=== PATIENT | male | born 1955 | race Caucasian/White ===

== ENCOUNTER 2021-09-01 14:48 | Inpatient (IN) | payer OTHER ==
[~2021-09-01] VITALS: Ht 177.8 cm; Wt 104.3 kg
--- NOTE | 2021-09-01 15:20 | NUR ---
PT TAKEN TO CT VIA ECHO
--- NOTE | 2021-09-01 15:40 | NUR ---
PT BACK FROM CT VIA ECHO
--- NOTE | 2021-09-01 15:55 | NUR ---
PT PROVIDED WITH WARM BLANKET
[2021-09-01] MEDS ORDERED: ACETAMINOPHEN EXTRA STRENGTH 500 MG TAB PO ONE (16:20)
--- NOTE | 2021-09-01 16:59 | NUR ---
LAB AT BEDSIDE
--- NOTE | 2021-09-01 18:58 | NUR ---
PT SWABBED(SYD) FOR COVID, SPECIMEN WALKED TO LAB
--- NOTE | 2021-09-01 19:25 | NUR ---
REPORT GIVEN TO NARENDRA OVIEDO. TRANSFER OF CARE
--- NOTE | 2021-09-01 19:28 | NUR ---
RECEIVED REPORT FROM LINDA OVIEDO
[2021-09-01 19:30] LABS: ALBUMIN 3.4 g/dL (3.4-5.0); ANION GAP 11.2 (8-16); ASPARTATE AMINOTRANSFERASE 13 U/L (15-37); CARBON DIOXIDE 27.4 mmol/L (21-32); CHLORIDE 106 mmol/L (98-107); CREATININE 0.9 mg/dL (0.6-1.3); GFR ARICAN-AMERICAN 108 mL/min (>90); GLUCOSE 89 mg/dL (74-106); POTASSIUM 4.6 mmol/L (3.5-5.1); SODIUM SERUM 140 mmol/L (136-145); TOTAL BILIRUBIN 0.2 mg/dL (0.0-1.0); UREA NITROGEN, BLOOD 20 mg/dL (7-18)
[2021-09-01 19:33] LABS: BASOPHILS # (AUTO) 0.1 K/uL (0.00-0.22); BASOPHILS % (AUTO) 1.1 % (0.0-2.0); EOSINOPHILS # (AUTO) 0.2 K/uL (0-0.4); EOSINOPHILS % (AUTO) 1.8 % (0.0-4.0); HEMOGLOBIN 13.5 g/dL (12.0-18.0); LYMPHOCYTES % (AUTO) 23.6 % (20.5-51.1); MEAN CORPUSCULAR HEMOGLOBIN 31 pg (27-31); MEAN CORPUSCULAR HGB CONC 33 g/dL (33-37); MEAN CORPUSCULAR VOLUME 92.7 fL (80-94); MONOCYTES # (AUTO) 0.8 K/uL (0.8-1.0); MONOCYTES % (AUTO) 9.8 % (1.7-9.3); NEUTROPHILS # (AUTO) 5.5 K/uL (1.8-7.7); NEUTROPHILS % (AUTO) 63.7 % (42.2-75.2); PLATELET COUNT (AUTO) 215 K/uL (140-450); RED BLOOD CELL COUNT(AUTO) 4.43 MIL/uL (4.20-6.10); RED CELL DISTRIBUTION WIDTH 14.8 % (11.6-13.7); WHITE BLOOD COUNT (AUTO) 8.6 K/uL (4.8-10.8)
--- NOTE | 2021-09-01 19:40 | NUR ---
ALEJANDRA APPLIED TO RIGHT MID ARM. FOOD PROVIDED TO PATIENT. PT IS EATING AND TOLERATED ON OWN.
[2021-09-01 19:46] LABS: APPEARANCE,URINE CLEAR (CLEAR); BILIRUBIN,URINE NEGATIVE (NEGATIVE); BLOOD, URINE NEGATIVE (NEGATIVE); COLOR,URINE YELLOW (YELLOW); LEUKOCYTE ESTERASE ,URINE NEGATIVE (NEGATIVE); NITRITE, URINE NEGATIVE (NEGATIVE); PH,URINE 5.5 (5.0-9.0); UGLUCOSE NEGATIVE (NEGATIVE)
[2021-09-01] MEDS ORDERED: fentaNYL citrate 0.05 MG/ML VIAL IM ONE (20:10)
[2021-09-01] MEDS ORDERED: IBUPROFEN 600 MG TAB PO PRN (21:15)
[2021-09-01] MEDS ORDERED: HYDROcodone/APAP 5/325 MG 1 TAB TAB PO PRN (21:15)
--- NOTE | 2021-09-01 22:14 | NUR ---
PT IS ADMITTED TO M/S. AWAITING BED ASSIG. PT IS RESTING COMFORTABLY. RESP EVEN AND UNLABORED
--- NOTE | 2021-09-01 22:45 | NUR ---
Patient will be admitted to care of MANDO. Admited to MED SURG. Will go to [id number]. Belongings list completed. Report to CATHY OVIEDO.
--- NOTE | 2021-09-01 23:00 | NUR ---
RECEIVE PATIENT VIA GURNEY FROM ED. PATIENT PLEASANT AND ABLE TO COMMUNICATE NEEDS. RIGHT SIDE WEAKNESS FROM STROKE. PATIENT HAS NO IV ASSESS AND MD IS AWARE. PATIENT ON ROOM AIR WITHOUT INCIDENT. PATIENT DENIES PAIN AT THIS TIME. ABLE TO ASSIST TO ADJUST IN BED FOR COMFORT WITH VERBAL COMMANDS FROM NURSES X 2. PATIENT CAN USE A URINAL AND WILL INFORM WHEN HER HE HAS HAD A BOWEL MOVEMENT. PICTURES TAKEN FOR WOUND CONSULT REFERRAL. NOTED TO RIGHT EYE IS SLIGHTLY SWOLLEN AND DARKER PIGMENTATION. DENIES PAIN/DISCOMFORT. SIDE RAILS UP X 3 FOR ADJUSTMENT AND SAFETY. ID BAND ON WRIST FALL RISK SIGN POSTED. [email or web address]
[2021-09-01 23:21] VITALS: BP 111/72
[2021-09-01 23:34] VITALS: BP 111/72
--- NOTE | 2021-09-02 01:00 | NUR ---
PATIENT IN BED ASLEEP WITHOUT INCIDENT. BED AT THE LOWEST LEVEL HEAD OF BE ELEVATED FOR COMFORT. NO S/SX OF PAIN OR DISCOMFORT. CHEST IS RISING AND FALLING EVENLY. SIDE RAILS UP X 3 FOR SAFETY AND SELF ADJUSTMENTS. PATIENT HAD TWO SOFT BOWEL MOVEMENTS NOTED. [email or web address]
--- NOTE | 2021-09-02 02:30 | NUR ---
Patient's Plan of Care was discussed and reviewed with MACHINE TOOL OPERATOR: JAKI ROSARIO
--- NOTE | 2021-09-02 03:00 | NUR ---
PATIENT IN BED ASLEEP WITHOUT INCIDENT. SITTER AT BED SIDE FOR SAFETY. BED AT THE LOWEST LEVEL HEAD OF BE ELEVATED FOR COMFORT. NO S/SX OF PAIN OR DISCOMFORT. [email or web address]
[2021-09-02 04:00] VITALS: BP 99/68
--- NOTE | 2021-09-02 07:09 | NUR ---
PATIENT HAS BEEN SCREENED AND CATEGORIZED LOW NUTRITION RISK. PATIENT WILL BE SEEN WITHIN 7 DAYS OF ADMISSION. 09/09/21 KENTON PIERCE MS, RDN
--- NOTE | 2021-09-02 07:19 | NUR ---
PATIENT WAS ENDORSED TO KARRIE OVIEDO. PATIENT IS IN BED A STABLE FOR CONTINUITY OF CARE [email or web address]
--- NOTE | 2021-09-02 07:20 | NUR ---
RECEIVED REPORT FROM POLISHING MACHINE TENDER NURSE FOR CONTINUITY OF CARE. PATIENT AWAKE VERBALLY RESPONSIVE. NO DISTRESS NOTED. RESPIRATION EVEN AND NOT LABORED NO SHORTNESS OF BREATH. ON ROOM AIR. DENIES PAIN AT THIS TIME. ALL SAFETY MEASURE IN PLACE.
[2021-09-02 07:26] LABS: ANION GAP 8.3 (8-16); CREATININE 0.9 mg/dL (0.6-1.3); POTASSIUM 4.3 mmol/L (3.5-5.1)
[2021-09-02 07:33] LABS: BASOPHILS # (AUTO) 0.1 K/uL (0.00-0.22); BASOPHILS % (AUTO) 1.2 % (0.0-2.0); EOSINOPHILS # (AUTO) 0.1 K/uL (0-0.4); EOSINOPHILS % (AUTO) 2.4 % (0.0-4.0); HEMATOCRIT 39.9 % (36-52); HEMOGLOBIN 13.3 g/dL (12.0-18.0); LYMPHOCYTES # (AUTO) 1.6 K/uL (2.0-11.5); LYMPHOCYTES % (AUTO) 27.8 % (20.5-51.1); MEAN CORPUSCULAR HEMOGLOBIN 31 pg (27-31); MEAN CORPUSCULAR HGB CONC 33 g/dL (33-37); MEAN CORPUSCULAR VOLUME 91.6 fL (80-94); MONOCYTES # (AUTO) 0.7 K/uL (0.8-1.0); MONOCYTES % (AUTO) 11.8 % (1.7-9.3); NEUTROPHILS # (AUTO) 3.3 K/uL (1.8-7.7); NEUTROPHILS % (AUTO) 56.8 % (42.2-75.2); PLATELET COUNT (AUTO) 228 K/uL (140-450); RED BLOOD CELL COUNT(AUTO) 4.35 MIL/uL (4.20-6.10); RED CELL DISTRIBUTION WIDTH 14.1 % (11.6-13.7); WHITE BLOOD COUNT (AUTO) 5.8 K/uL (4.8-10.8)
[2021-09-02 08:00] VITALS: BP 103/75
--- NOTE | 2021-09-02 08:00 | NUR ---
Patient's Plan of Care was discussed and reviewed with SHIRT IRONER: KARRIE. WILL CONTINUE WITH CURRENT POC
--- NOTE | 2021-09-02 10:00 | NUR ---
PATIENT ON BED RESTING WITH CALL ALIGHT WITH IN EASY REACH.
[2021-09-02] MEDS ORDERED: ACETAMINOPHEN 325 MG TAB PO PRN (11:05)
[2021-09-02] MEDS ORDERED: POTASSIUM CHLORIDE 10 MEQ TABER PO PRN (11:05)
[2021-09-02] MEDS: NACL 0.9% 1,000 ML IV SCH ×2 (11:05→11:10)
[2021-09-02] MEDS ORDERED: HYDROcodone/APAP 5/325 MG 1 TAB TAB PO PRN (11:05)
[2021-09-02] MEDS ORDERED: DOCUSATE SODIUM 100 MG GELCAP PO PRN (11:05)
[2021-09-02] MEDS ORDERED: ONDANSETRON 4 MG/2 ML VIAL IM/IVP PRN (11:05)
[2021-09-02] MEDS ORDERED: ZOLPIDEM 5 MG TAB PO PRN (11:05)
[2021-09-02] MEDS ORDERED: LORazepam 2 MG/ML VIAL IM/IVP PRN (11:05)
[2021-09-02] MEDS ORDERED: MORPHINE SULFATE 2 MG/ML SYR IVP PRN (11:05)
[2021-09-02] MEDS ORDERED: MAG SULF 2000 MG/WATER PREMIX 50 ML IV PRN (11:05)
--- NOTE | 2021-09-02 11:52 | NUR ---
DR. GILMORE AT BED SIDE.
--- NOTE | 2021-09-02 12:52 | NUR ---
PATIENT AWAKE COLLECTED URINE SPECIMEN. ALL SAFETY MEASURE IN PLACE.
[2021-09-02 13:05] LABS: PROTHROMBIN TIME 10.5 secs (10.8-13.4)
[2021-09-02 13:27] LABS: CHOL/HDL RATIO 3.5 (1-4.5); THYROID STIMULATING HORMONE 1.08 uIU/mL (0.34-3.74)
--- NOTE | 2021-09-02 15:01 | NUR ---
PATIENT CALLED TO EMPTY URINAL NOTED WITH 400 CC OF OUT PUT CLEAR YELLOW URINE. ALL SAFETY MEASURE IN PLACE.
--- NOTE | 2021-09-02 17:00 | NUR ---
PATIENT ALERT NO DISTRESS NOTED ON STABLE CONDITION.
[2021-09-02 17:24] LABS: BARBITURATE, URINE POSITIVE ng/ml (NEG <=200); BENZODIAZEPINE, URINE NEGATIVE ng/mL (NEG <=200)
[2021-09-02 17:25] LABS: CANNABINOID, URINE NEGATIVE ng/mL (NEG <=50); COCAINE, URINE NEGATIVE ng/mL (NEG <=300); OPIATE, URINE POSITIVE ng/mL (NEG <=2000); PHENCYCLIDINE SCREEN,URINE NEGATIVE ng/mL (NEG <=25)
--- NOTE | 2021-09-02 19:25 | NUR ---
RECEIVED REPORT FROM AM NURSE FOR CONTINUITY OF CARE. PT AWAKE COOPERATIVE. IV L HAND 22G INFUSING NS @60 CC/HR PER PUMP. CONTINENT VOIDING PER URINAL. NAD. CALL LIGHT WITHIN REACH. WILL CONTINUE TO MONITOR.
--- NOTE | 2021-09-02 19:30 | NUR ---
GAVE REPORT TO MEDICAL ARTIST NURSE FOR CONTINUITY OF CARE. AWAKE NO DISTRESS NOTED.
[2021-09-02 20:00] VITALS: BP 122/71
--- NOTE | 2021-09-02 21:00 | NUR ---
HS MEDS GIVEN. VSS AFEBRILE. VOIDING PER URINAL. CALL LIGHT WITHIN REACH.
--- NOTE | 2021-09-03 02:00 | NUR ---
FREQ ROUNDS. CHECKED PT STABLE AND ASLEEP IN BED. RR EVEN AND UNLABORED WUTH EQUAL CHEST RISE. ALL SAFETY MEASURES IN PLACE. BED LOW AND LOCKED POSITION. CALL LIGHT WITHIN REACH. WILL CONTINUE TO MONITOR.
[2021-09-03] MEDS: NACL 0.9% 1,000 ML IV SCH ×2 (03:45→21:54)
[2021-09-03 04:00] VITALS: BP 143/77
--- NOTE | 2021-09-03 04:00 | NUR ---
FREQ ROUNDS. PT ASLEEP RREVEN AND UNLABORED WITH EQUAL CHEST RISE. ALL SAFETY MEASURES IN PLACE. WILL CONTINUE TO MONITOR.
[2021-09-03 07:09] LABS: BASOPHILS # (AUTO) 0.1 K/uL (0.00-0.22); EOSINOPHILS # (AUTO) 0.1 K/uL (0-0.4); EOSINOPHILS % (AUTO) 1.9 % (0.0-4.0); HEMATOCRIT 40.4 % (36-52); HEMOGLOBIN 13.3 g/dL (12.0-18.0); LYMPHOCYTES % (AUTO) 27.7 % (20.5-51.1); MEAN CORPUSCULAR HEMOGLOBIN 31 pg (27-31); MEAN CORPUSCULAR HGB CONC 33 g/dL (33-37); MEAN CORPUSCULAR VOLUME 92.8 fL (80-94); MONOCYTES # (AUTO) 0.7 K/uL (0.8-1.0); MONOCYTES % (AUTO) 9.8 % (1.7-9.3); NEUTROPHILS # (AUTO) 4.3 K/uL (1.8-7.7); NEUTROPHILS % (AUTO) 59.6 % (42.2-75.2); PLATELET COUNT (AUTO) 177 K/uL (140-450); RED BLOOD CELL COUNT(AUTO) 4.36 MIL/uL (4.20-6.10); RED CELL DISTRIBUTION WIDTH 14.2 % (11.6-13.7); WHITE BLOOD COUNT (AUTO) 7.2 K/uL (4.8-10.8)
[2021-09-03 07:25] LABS: ANION GAP 10.8 (8-16); CARBON DIOXIDE 25.4 mmol/L (21-32); CREATININE 0.7 mg/dL (0.6-1.3); POTASSIUM 4.2 mmol/L (3.5-5.1)
--- NOTE | 2021-09-03 07:30 | NUR ---
ENDORSED PT REPORT TO AM NURSE PATRICIA RN FOR CONTINUITY OF CARE. PT STABLE.
[2021-09-03 07:34] LABS: MAGNESIUM 2.1 mg/dL (1.8-2.4); PHOSPHORUS 2.8 mg/dL (2.5-4.9)
--- NOTE | 2021-09-03 07:49 | NUR ---
RECEIVED REPORT FROM STAGE DRIVER NURSE FOR CONTINUITY OF CARE. PT IN BED, AOX4. ON ROOM AIR, BREATHING EQUAL AND UNLABORED WITH NO RESPIRATORY DISTRESS NOTED. NO C/O PAIN. SR ON MONITOR. HX OF CVA WITH R SIDE WEAKNESS. IV ON L HAND G22 RUNNING IVF ORDERED, FLUSHING WELL. SKIN WARM, DRY AND INTACT. ALL PRECAUTIONS IN PLACE.CALL LIGHT WITHIN REACH. WILL CONTINUE TO MONITOR.
[2021-09-03 08:00] VITALS: BP 144/62
[2021-09-03 08:07] LABS: T4 (THYROXINE) 6.4 ug/dL (4.5-12.0)
--- NOTE | 2021-09-03 08:50 | NUR ---
DUE MEDS GIVEN, TOLERATED WELL
--- NOTE | 2021-09-03 10:30 | NUR ---
WITH SOFT BM X2, OREN CARE DONE
--- NOTE | 2021-09-03 12:30 | NUR ---
PT EATING LUNCH, NO RESPIRATORY DISTRESS, NO C/O PAIN
--- NOTE | 2021-09-03 15:00 | NUR ---
PT AWAKE IN BED, NO APPARENT DISTRESS, NO SOB
[2021-09-03 16:00] VITALS: BP 116/83
--- NOTE | 2021-09-03 18:13 | NUR ---
PT AWAKE IN BED, NO C/O PAIN, NO RESPIRATORY DISTRESS
--- NOTE | 2021-09-03 19:15 | NUR ---
RECEIVED PT REPORT FROM AM RN ANDREY FOR CONTINUITY OF CARE. PT AWAKE WITH COVERS OVER HER HEAD. STALIN 20 G IV INFUSING NS@ 70CC/HR. L ANKLE DRESSING INTACT BILATERAL HEEL PROTECTORS ON. INCONTINENT OF URINE PARTIAL LINEN CHANGE AND SKIN CARE RENDERED. ALL SAFETY MEASURES IN PLACE BED ALARM ON. WILL CONTINUE TO MONITOR. Addendum: 09/04/21 at 0200 by Tricia Ponce RN WRONG PATIENT
--- NOTE | 2021-09-03 19:20 | NUR ---
RECEIVED PT REPORT FROM AM RN PATRICIA FOR CONTINUITY OF CARE. PT A&OX4. ON RM AIR. RR EVEN AND UNLABORED WITH EQUAL CHEST RISE. NO C/O PAIN.HX OF CVA W RIGHT SIDED WEAKNESS. IV ON L HAND 22 G INFUSING NS@60CC/HR. SKIN WARM, DRY AND INTACT. RFA SKIN TEAR DRESSING D&I. ALL SAFETY MEASURES IN PLACE. CALL LIGHT WITHIN REACH. WILL CONTINUE TO MONITOR.
--- NOTE | 2021-09-03 21:00 | NUR ---
HS MEDS GIVEN TO PT CRUSHED IN PUDDING. PT REFUSED DINNER TRAY SITTING AT BEDSIDE. REPOSITIONED. PT SLEEPING AFTER 20 MINUTES. ALL SAFETY MEASURES IN PLACE. CONTINUE TO MONITOR. Addendum: 09/04/21 at 0152 by Tricia Ponce RN WRONG PATIENT
[2021-09-04] VITALS: BP 124/72
--- NOTE | 2021-09-04 00:30 | NUR ---
FREQ ROUNDS. PT SLEEPING RR EVEN AND UNLABORED WITH EQUAL CHEST RISE. NAD. CALL LIGHT WITHIN REACH. CONTINUE TO MONITOR.
[2021-09-04] MEDS: NACL 0.9% 1,000 ML IV SCH (03:30)
--- NOTE | 2021-09-04 06:00 | NUR ---
FREQ ROUNDS MAINTAINED. POSSIBLE D/C PT IS AWARE. HE SAID "I'M GOING HOME TODAY" PT VOIDING PER URINAL INCONTINENT OF BM. CALL LIGHT WITHIN REACH WILL CONTINUE TO MONITOR.
[2021-09-04 06:47] LABS: BASOPHILS # (AUTO) 0.1 K/uL (0.00-0.22); BASOPHILS % (AUTO) 1.1 % (0.0-2.0); EOSINOPHILS # (AUTO) 0.1 K/uL (0-0.4); EOSINOPHILS % (AUTO) 1.8 % (0.0-4.0); HEMATOCRIT 40.2 % (36-52); HEMOGLOBIN 13.3 g/dL (12.0-18.0); LYMPHOCYTES # (AUTO) 1.9 K/uL (2.0-11.5); LYMPHOCYTES % (AUTO) 26.6 % (20.5-51.1); MEAN CORPUSCULAR HEMOGLOBIN 31 pg (27-31); MEAN CORPUSCULAR HGB CONC 33 g/dL (33-37); MEAN CORPUSCULAR VOLUME 92.5 fL (80-94); MONOCYTES # (AUTO) 0.8 K/uL (0.8-1.0); MONOCYTES % (AUTO) 10.7 % (1.7-9.3); NEUTROPHILS # (AUTO) 4.3 K/uL (1.8-7.7); NEUTROPHILS % (AUTO) 59.8 % (42.2-75.2); PLATELET COUNT (AUTO) 203 K/uL (140-450); RED BLOOD CELL COUNT(AUTO) 4.35 MIL/uL (4.20-6.10); RED CELL DISTRIBUTION WIDTH 14.2 % (11.6-13.7); WHITE BLOOD COUNT (AUTO) 7.1 K/uL (4.8-10.8)
[2021-09-04 06:59] LABS: CARBON DIOXIDE 25.3 mmol/L (21-32); CREATININE 0.8 mg/dL (0.6-1.3); POTASSIUM 4.3 mmol/L (3.5-5.1)
[2021-09-04 07:14] LABS: MAGNESIUM 2.3 mg/dL (1.8-2.4); PHOSPHORUS 2.7 mg/dL (2.5-4.9)
--- NOTE | 2021-09-04 07:15 | NUR ---
ENDORSED PT REPORT TO AM LUKE ONEIL FOR CONTINUITY OF CARE. PT IS STABLE.
--- NOTE | 2021-09-04 07:16 | NUR ---
RECEIVED PT FROM CONCRETING SUPERVISOR NURSE FOR CONTINUITY OF CARE. PT IN BED, SLEEPING EASILY AROUSABLE BY VERBAL STIMULI. RESPIRATIONS EVEN AND UNLABORED AT ROOM AIR. NO SIGNS OF DISTRESS NOTED. IV LINE AT LFA 22G INFUSING NS AT 60ML/HR. SKIN IS WARM AND DRY TO TOUCH WITH RFA SKIN TEAR FROM FALL. CALL LIGHT WITHIN REACH SAFETY MEASURES IN PLACE. WILL CONTINUE TO MONITOR.
[2021-09-04 08:00] VITALS: BP 110/77
--- NOTE | 2021-09-04 08:50 | NUR ---
SCHEDULED HEPARIN GIVEN. PT TOLERATED WELL. PT IS NOW SITTING IN BED. EATING BREAKFAST. NO SIGNS OF DISTRESS NOTED. CALL LIGHT WITHIN REACH. SAFETY MEASURES IN PLACE. WILL CONTINUE TO MONITOR.
--- NOTE | 2021-09-04 09:15 | NUR ---
PT IN BED, WATCHING TV. NO SIGNS OF DISTRESS NOTED. DENIES PAIN. CALL LIGHT WITHIN REACH. SAFETY MEASURES IN PLACE.
--- NOTE | 2021-09-04 11:23 | NUR ---
DR GILMORE AT BEDSIDE.
--- NOTE | 2021-09-04 11:45 | NUR ---
DC PLANNING: THE PATIENT ADMITTED FROM [facility] WITH LLE PAIN. THE PATIENT HAS BEEN CLEARED TO RETURN TO THE [facility]. CM SPOKE WITH HIM AT BEDSIDE, HE STATES HE IS IN AGREEMENT WITH RETURNING. HE IS PRIMARILY WC BOUND AND REQUIRES ASSISTANCE WITH ADL'S. [facility] IS UNABLE TO PROVIDE TRANSPORT, CM FAXED A REQUEST TO [facility] ASKING FOR 12 NOON BELL NECK HAMMERER. IMPORTANT MESSAGE FROM MEDICARE WAS PRESENTED TO THE PATIENT AND SIGNED, COPY GIVEN TO HIM. [facility] IS AWARE THAT THE PATIENT IS COMING BACK TODAY. CM WILL FOLLOW. Addendum: 09/04/21 at 1230 by Charla Reid CM DC PLANNING: PATIENT TO BE PICKED UP BY [facility] ([phone])ECHO PER [facility] TRANSPORT. PATIENTS RN AWARE, CM WILL FOLLOW.
[2021-09-04 12:51] VITALS: BP 110/77
--- NOTE | 2021-09-04 13:16 | NUR ---
PT MADE AWARE THAT HE IS GOING BACK TO [facility]. PT VERBALIZED UNDERSTANDING. DISCHARGE PAPER DONE. GAVE REPORT TO DON OF [facility]. ANTICIPATING DC AT 2PM VIA [facility].
[2021-09-04] MEDS ORDERED: DOCU-299 PO (13:22)
[2021-09-04] MEDS ORDERED: voltaren gel TOP (13:22)
[2021-09-04] MEDS ORDERED: IBUP-2213 PO (13:22)
[2021-09-04] MEDS ORDERED: ACET-9525 PO (13:22)
--- NOTE | 2021-09-04 14:15 | NUR ---
DC PLANNING PATIENT IS A 66 YR OLD MALE WHO PRESENTED TO [facility] ON 09/01/21 FOR LEFT LEG PAIN. SW MET WITH PATIENT AT BEDSIDE FOR THE PURPOSE OF DISCUSSING AND GATHERING COLLATERAL INFORMATION. PATIENT REPORTS BEING A RESIDENT OF [facility] FOR 8 YRS. PATIENT REPORTS EMERGENCY CONTACT AND MEDICAL DECISION MAKER KEN SAHU (MOTHER) [phone]. PATIENT DENIED CURRENTLY HAVING AD IN PLACE HOWEVER ACCEPTED A.D PACKET PROVIDED BY [facility]. PATIENT REPORTS BEING PRIMARILY WHEELCHAIR BOUND AND ASSISTANCE WITH ADL'S. PATIENT REPORTS DC PLANS ARE TO RETURN TO [facility].
--- NOTE | 2021-09-04 14:35 | NUR ---
PT DC TO [facility]. PT LEFT VIA TRANSPORT. DISCHARGE PAPER DISCUSSED WITH THE PT. PT VERBALIZED UNDERSTANDING AND SIGNED. REMOVED IV CATHETER IS INTACT. REMOVED IV WRIST BAND. ALL BELONGINGS TAKEN UPON DISCHARGE. PT IS STABLE.
== END 2021-09-04 14:35 | DRG 554 ==
LOC: MED 14:48 → MMU 21:24 → MTU 22:49
DX: M19.09 Primary osteoarthritis, other specified site (principal); I69.351 Hemiplegia and hemiparesis following cerebral infarction affecting right dominant side; E86.0 Dehydration; I10 Essential (primary) hypertension; F17.210 Nicotine dependence, cigarettes, uncomplicated; S83.92XA Sprain of unspecified site of left knee, initial encounter; S09.90XA Unspecified injury of head, initial encounter; Z20.822 Contact with and (suspected) exposure to COVID-19; W18.39XA Other fall on same level, initial encounter; E66.9 Obesity, unspecified; Y92.89 Other specified places as the place of occurrence of the external cause; Y99.8 Other external cause status; Y93.89 Activity, other specified; Z79.01 Long term (current) use of anticoagulants; Z88.8 Allergy status to other drugs, medicaments and biological substances; Z79.899 Other long term (current) drug therapy; Z88.0 Allergy status to penicillin; Z68.33 Body mass index [BMI] 33.0-33.9, adult
CPT/HCPCS: 36415; 70450; 73562; 73590; 80048; 80053; 80305; 81003; 82140; 82150; 83036; 83690; 83735; 83880; 84100; 84134; 84436; 84443; 84484; 85025; 85610; 85730; 87081; 93005; 96372; 97163-GP; 97530; 99285; J1644; J3010

== ENCOUNTER 2021-09-29 14:55 | Emergency (ER) | payer OTHER ==
[~2021-09-29] VITALS: Ht 185.4 cm; Wt 115.2 kg
[~2021-09-29 14:55] MED LIST: ACET-9525 PO; DOCU-299 PO; IBUP-2213 PO; voltaren gel TOP
--- NOTE | 2021-09-29 14:57 | NUR ---
PT VICTOR M VIA GURNEY TO BED 11.
[2021-09-29 14:58] VITALS: BP 135/71
--- NOTE | 2021-09-29 15:32 | NUR ---
66 Y/O MALE VICTOR M [facility] C/O ABDOMINAL PAIN X1 DAY. PAIN 10/10 CRAMPING THROUGHOUT THE BODY. + DIARRHEA. PT IS WC BOUND DUE TO R SIDE STROKE. RIGHT HAND CONTRACTED, DENIES NAUSEA AND VOMITING, DENIED ANY MEDICATION FOR PAIN PMH:AFIB/HDL/STROKE ALLERGY: CARBAPENEMS, CEPHALOSPORINS, PCN
--- NOTE | 2021-09-29 15:37 | NUR ---
PT TAKEN TO CT VIA ECHO
[2021-09-29 15:42] LABS: BASOPHILS # (AUTO) 0.1 K/uL (0.00-0.22); BASOPHILS % (AUTO) 0.9 % (0.0-2.0); EOSINOPHILS # (AUTO) 0.1 K/uL (0-0.4); EOSINOPHILS % (AUTO) 1.5 % (0.0-4.0); HEMATOCRIT 40.7 % (36-52); HEMOGLOBIN 13.4 g/dL (12.0-18.0); LYMPHOCYTES % (AUTO) 21.3 % (20.5-51.1); MEAN CORPUSCULAR HEMOGLOBIN 30 pg (27-31); MEAN CORPUSCULAR HGB CONC 33 g/dL (33-37); MEAN CORPUSCULAR VOLUME 91.9 fL (80-94); MONOCYTES # (AUTO) 0.9 K/uL (0.8-1.0); MONOCYTES % (AUTO) 9.3 % (1.7-9.3); NEUTROPHILS # (AUTO) 6.2 K/uL (1.8-7.7); PLATELET COUNT (AUTO) 228 K/uL (140-450); RED BLOOD CELL COUNT(AUTO) 4.43 MIL/uL (4.20-6.10); RED CELL DISTRIBUTION WIDTH 14.4 % (11.6-13.7); WHITE BLOOD COUNT (AUTO) 9.2 K/uL (4.8-10.8)
[2021-09-29 16:10] LABS: BILIRUBIN,URINE NEGATIVE (NEGATIVE); BLOOD, URINE NEGATIVE (NEGATIVE); COLOR,URINE YELLOW (YELLOW); LEUKOCYTE ESTERASE ,URINE TRACE (NEGATIVE); NITRITE, URINE NEGATIVE (NEGATIVE); PH,URINE 6.5 (5.0-9.0); UGLUCOSE NEGATIVE (NEGATIVE)
[2021-09-29 16:12] LABS: ALBUMIN 3.3 g/dL (3.4-5.0); ANION GAP 9.6 (8-16); CARBON DIOXIDE 27.5 mmol/L (21-32); CREATININE 0.9 mg/dL (0.6-1.3); POTASSIUM 4.1 mmol/L (3.5-5.1); TOTAL BILIRUBIN 0.3 mg/dL (0.0-1.0)
[2021-09-29 16:15] LABS: APPEARANCE,URINE HAZY (CLEAR)
[2021-09-29 16:24] LABS: RBC,URINE NONE SEEN /HPF (0-5)
[2021-09-29 16:53] VITALS: BP 138/90
[2021-09-29] MEDS ORDERED: DICYCLOMINE HCL LIQUID 20 MG, ALUMINUM HYD/MAG/SIMETHICONE 30 ML, LIDOCAINE VISCOUS 2% ... PO ONE ×3 (17:05)
[2021-09-29] MEDS ORDERED: ACETAMINOPHEN EXTRA STRENGTH 500 MG TAB PO ONE (17:05)
[2021-09-29] MEDS ORDERED: DICYCLOMINE HCL LIQUID 10 MG/5 ML UDC ONE (17:07)
[2021-09-29] MEDS ORDERED: ALUMINUM HYD/MAG/SIMETHICONE 30 ML UDC ONE (17:07)
[2021-09-29] MEDS ORDERED: MAG355OR2 PO (17:11)
[2021-09-29] MEDS ORDERED: SULF-59 PO (17:11)
--- NOTE | 2021-09-29 17:50 | NUR ---
CALLED PT [facility] CHANG NO ANSWER. CALL HOUSE SUP FOR UBJOSE
--- NOTE | 2021-09-29 18:02 | NUR ---
Patient discharged with v/s stable. Written and verbal after care instructions given and explained. Patient alert, oriented and verbalized understanding of instructions. Wheel Chair Assisted with to fpc. All questions addressed prior to discharge. ID band removed. Patient advised to follow up with PMD. Rx of MAALOX AND BACTRIM DS given. Patient educated on indication of medication including possible reaction and side effects. Opportunity to ask questions provided and answered.
== END 2021-09-29 18:02 | disposition home or self-care (01) ==
LOC: MED 14:55
DX: N39.0 Urinary tract infection, site not specified (principal); G81.91 Hemiplegia, unspecified affecting right dominant side; I48.91 Unspecified atrial fibrillation; I10 Essential (primary) hypertension; F03.90 Unspecified dementia, unspecified severity, without behavioral disturbance, psychotic disturbance, mood disturbance, and anxiety; Z86.73 Personal history of transient ischemic attack (TIA), and cerebral infarction without residual deficits; Z98.890 Other specified postprocedural states; Z79.899 Other long term (current) drug therapy; Z79.2 Long term (current) use of antibiotics; Z79.1 Long term (current) use of non-steroidal anti-inflammatories (NSAID); Z79.891 Long term (current) use of opiate analgesic; Z88.8 Allergy status to other drugs, medicaments and biological substances; Z88.1 Allergy status to other antibiotic agents; Z88.0 Allergy status to penicillin
CPT/HCPCS: 36415; 80053; 81001; 83605; 83690; 85025; 87086; 99284

== ENCOUNTER 2021-10-03 19:58 | Emergency (ER) | payer OTHER ==
[~2021-10-03] VITALS: Ht 165.1 cm; Wt 74.8 kg
[2021-10-03 19:58] VITALS: BP 107/49
[~2021-10-03 19:58] MED LIST changes: +MAG355OR2 PO; +SULF-59 PO
[2021-10-03] MEDS: NACL 0.9% 500 ML IV ONE (21:22)
[2021-10-03] MEDS: ONDANSETRON 4 MG/2 ML VIAL IVP ONE (21:26)
[2021-10-03] MEDS: MORPHINE SULFATE 4 MG/ML SYR IVP ONE (21:27)
[2021-10-03 21:28] LABS: BASOPHILS % (AUTO) 0.3 % (0.0-2.0); EOSINOPHILS % (AUTO) 0.1 % (0.0-4.0); HEMATOCRIT 44.6 % (36-52); HEMOGLOBIN 14.3 g/dL (12.0-18.0); LYMPHOCYTES # (AUTO) 0.9 K/uL (2.0-11.5); LYMPHOCYTES % (AUTO) 5.4 % (20.5-51.1); MEAN CORPUSCULAR HEMOGLOBIN 30 pg (27-31); MEAN CORPUSCULAR HGB CONC 32 g/dL (33-37); MEAN CORPUSCULAR VOLUME 93.5 fL (80-94); MONOCYTES # (AUTO) 0.9 K/uL (0.8-1.0); MONOCYTES % (AUTO) 5.8 % (1.7-9.3); NEUTROPHILS # (AUTO) 14.3 K/uL (1.8-7.7); NEUTROPHILS % (AUTO) 88.4 % (42.2-75.2); PLATELET COUNT (AUTO) 217 K/uL (140-450); RED BLOOD CELL COUNT(AUTO) 4.76 MIL/uL (4.20-6.10); RED CELL DISTRIBUTION WIDTH 14.5 % (11.6-13.7); WHITE BLOOD COUNT (AUTO) 16.2 K/uL (4.8-10.8)
[2021-10-03 21:32] LABS: PROTHROMBIN TIME 11.1 secs (10.8-13.4)
[2021-10-03 21:46] LABS: ALBUMIN 3.9 g/dL (3.4-5.0); ANION GAP 14.3 (8-16); CARBON DIOXIDE 22.8 mmol/L (21-32); CREATININE 1.5 mg/dL (0.6-1.3); POTASSIUM 5.1 mmol/L (3.5-5.1); TOTAL BILIRUBIN 0.3 mg/dL (0.0-1.0)
[2021-10-04 08:36] VITALS: BP 124/65
== END 2021-10-04 08:46 | disposition home or self-care (01) ==
LOC: MED 19:58
DX: R10.84 Generalized abdominal pain (principal); Z20.822 Contact with and (suspected) exposure to COVID-19; I48.91 Unspecified atrial fibrillation; I11.0 Hypertensive heart disease with heart failure; I50.9 Heart failure, unspecified; F03.90 Unspecified dementia, unspecified severity, without behavioral disturbance, psychotic disturbance, mood disturbance, and anxiety; Z88.0 Allergy status to penicillin; Z88.1 Allergy status to other antibiotic agents; Z88.8 Allergy status to other drugs, medicaments and biological substances; Z88.3 Allergy status to other anti-infective agents; Z86.73 Personal history of transient ischemic attack (TIA), and cerebral infarction without residual deficits; Z79.899 Other long term (current) drug therapy; Z98.890 Other specified postprocedural states
CPT/HCPCS: 36415; 74022; 74177; 80053; 82550; 82553; 83605; 83874; 83880; 84484; 85025; 85610; 85730; 87040; 87426; 93005; 96361; 96374; 96375; 99285; J2270; J2405; J7030; Q0092; Q9967

== ENCOUNTER 2021-10-07 15:55 | Emergency (ER) | payer OTHER ==
[~2021-10-07] VITALS: Ht 182.9 cm; Wt 106.6 kg
[2021-10-07 15:58] VITALS: BP 144/83
--- NOTE | 2021-10-07 15:58 | NUR ---
RC132 TO BED 07 UPON ARRIVAL. OFFLOADED AT 1605. [facility] # [id number]
--- NOTE | 2021-10-07 15:58 | NUR ---
VIRA DOW VIA GURNEY TO BED 07.
--- NOTE | 2021-10-07 16:20 | NUR ---
66 Y/O MALE BIBA FOR SYNCOPAL EPISODE WHILE SITTING IN WHEELCHAIR. DENIES ANY TRAUMA. DENIES CP/N/V/D.
--- NOTE | 2021-10-07 16:32 | NUR ---
LAB AT PT BEDSIDE
--- NOTE | 2021-10-07 16:32 | NUR ---
URINE COLLECTED HANDED TO LAB AT BEDSIDE
--- NOTE | 2021-10-07 16:38 | NUR ---
PT TAKEN TO XR VIA ECHO
[2021-10-07 16:43] LABS: BASOPHILS # (AUTO) 0.1 K/uL (0.00-0.22); BASOPHILS % (AUTO) 0.8 % (0.0-2.0); EOSINOPHILS # (AUTO) 0.2 K/uL (0-0.4); EOSINOPHILS % (AUTO) 1.9 % (0.0-4.0); HEMATOCRIT 41.8 % (36-52); HEMOGLOBIN 13.9 g/dL (12.0-18.0); LYMPHOCYTES # (AUTO) 1.5 K/uL (2.0-11.5); LYMPHOCYTES % (AUTO) 15.8 % (20.5-51.1); MEAN CORPUSCULAR HEMOGLOBIN 30 pg (27-31); MEAN CORPUSCULAR HGB CONC 33 g/dL (33-37); MEAN CORPUSCULAR VOLUME 91.3 fL (80-94); NEUTROPHILS # (AUTO) 6.7 K/uL (1.8-7.7); NEUTROPHILS % (AUTO) 70.5 % (42.2-75.2); PLATELET COUNT (AUTO) 245 K/uL (140-450); RED BLOOD CELL COUNT(AUTO) 4.58 MIL/uL (4.20-6.10); RED CELL DISTRIBUTION WIDTH 13.9 % (11.6-13.7); WHITE BLOOD COUNT (AUTO) 9.5 K/uL (4.8-10.8)
[2021-10-07 16:53] LABS: APPEARANCE,URINE CLEAR (CLEAR); BILIRUBIN,URINE 2+ (NEGATIVE); BLOOD, URINE NEGATIVE (NEGATIVE); COLOR,URINE YELLOW (YELLOW); LEUKOCYTE ESTERASE ,URINE NEGATIVE (NEGATIVE); NITRITE, URINE NEGATIVE (NEGATIVE); UGLUCOSE TRACE (NEGATIVE)
[2021-10-07 17:17] LABS: ALBUMIN 0.3 g/dL (3.4-5.0); CHLORIDE 101 mmol/L (98-107); CREATININE 1.2 mg/dL (0.6-1.3); GFR ARICAN-AMERICAN 77 mL/min (>90); POTASSIUM 4.1 mmol/L (3.5-5.1); SODIUM SERUM 135 mmol/L (136-145); UREA NITROGEN, BLOOD 19 mg/dL (7-18)
[2021-10-07 17:20] LABS: ANION GAP 13.8 (8-16); ASPARTATE AMINOTRANSFERASE 2 U/L (15-37); CARBON DIOXIDE 24.3 mmol/L (21-32); GLUCOSE 117 mg/dL (74-106)
[2021-10-07] MEDS ORDERED: HYDROcodone/APAP 7.5/325 MG 1 TAB PO ONE (17:40)
--- NOTE | 2021-10-07 18:57 | NUR ---
PT RESTING IN NO APPARENT DISTRESS, BREATHING EVEN AND UNLABORED.
--- NOTE | 2021-10-07 19:15 | NUR ---
Pt report given to IVELISSE SNOWDEN. Transfer of care at this time.
[2021-10-07] MEDS ORDERED: KETOROLAC 15 MG/ML VIAL IVP ONE (20:25)
--- NOTE | 2021-10-07 20:30 | NUR ---
GAVE REPORT OF PATIETN RETURNING TO FACILIY. THEY ARE AWARE. HAND ASSEMBLER ARRANGING TRANSPORTATION
--- NOTE | 2021-10-07 21:00 | NUR ---
SPOKE TO BRYAN AT [facility] WITH UPDATE ON PATIENT STATUS. THEY ARE ABLE TO RECEIVE PATIENT BACK AT ANY TIME.
[2021-10-07] MEDS ORDERED: DOCU-299 PO (21:16)
[2021-10-07] MEDS ORDERED: HYDR-5080 PO (21:16)
--- NOTE | 2021-10-07 22:10 | NUR ---
ATTEMPTED TO CALL [facility] X5 TIMES. SOMEONE PICKED UP ONCE AND STATED "OOPS I PRESSED THE WRONG NUMBERS, THEN HANGED UP". NO ANSWER FOLLOWING THAT
[2021-10-07 22:25] VITALS: BP 159/78
--- NOTE | 2021-10-07 22:25 | NUR ---
Patient discharged with v/s stable. Written and verbal after care instructions given and explained. Patient alert, oriented and verbalized understanding of instructions. w/c with arranged transportation to halfway. All questions addressed prior to discharge. ID band removed. Patient advised to follow up with PMD. Rx of Docusate Sodium and Hydrocodone/Acetaminophen given.
--- NOTE | 2021-10-07 23:33 | NUR ---
The patient's care was reviewed and supervised by Cheri Humphreys RN.
== END 2021-10-07 22:25 | disposition home or self-care (01) ==
LOC: MED 15:55
DX: S20.211A Contusion of right front wall of thorax, initial encounter (principal); R55 Syncope and collapse; M54.2 Cervicalgia; M54.50 Low back pain, unspecified; M54.6 Pain in thoracic spine; I48.91 Unspecified atrial fibrillation; I10 Essential (primary) hypertension; F03.90 Unspecified dementia, unspecified severity, without behavioral disturbance, psychotic disturbance, mood disturbance, and anxiety; Z86.73 Personal history of transient ischemic attack (TIA), and cerebral infarction without residual deficits; Z98.890 Other specified postprocedural states; Z79.899 Other long term (current) drug therapy; Z79.891 Long term (current) use of opiate analgesic; Z79.2 Long term (current) use of antibiotics; Z79.1 Long term (current) use of non-steroidal anti-inflammatories (NSAID); Z88.8 Allergy status to other drugs, medicaments and biological substances; Z88.1 Allergy status to other antibiotic agents; Z88.0 Allergy status to penicillin; W18.39XA Other fall on same level, initial encounter; Y92.89 Other specified places as the place of occurrence of the external cause; Y93.89 Activity, other specified; Y99.8 Other external cause status
CPT/HCPCS: 36415; 70450; 71045; 80053; 81003; 84484; 85025; 93005; 96372; 99285; J1885

== ENCOUNTER 2021-10-25 12:15 | Emergency (ER) | payer OTHER, MEDICAID ==
[~2021-10-25] VITALS: Ht 185.4 cm; Wt 106.6 kg
[~2021-10-25 12:15] MED LIST changes: +HYDR-5080 PO
--- NOTE | 2021-10-25 12:15 | NUR ---
BIBA BLS TO ER BED 7
[2021-10-25 12:26] VITALS: BP 155/102
--- NOTE | 2021-10-25 12:47 | NUR ---
66/M VICTOR M FROM [facility]. PER EMS STAFF CALLED 911 STATING PATIENT C/O 01/29 BODYACHES SINCE THIS MORNING. DENIES FEVERS, COUGH, CP, SOB, PATIENT STATES OTHER RESIDENTS AT FACILITY HAVE BEEN SICK RECENTLY. PMH: HX STROKE (RT SIDE WEAKNESS), htn ALLERGIES: CARBAPENEMS, CEPHALOSPORINS, PENICILLINS, CILASTATIN, IMIPENEM
--- NOTE | 2021-10-25 12:52 | NUR ---
DR WYMAN AT BEDSIDE.
--- NOTE | 2021-10-25 13:21 | NUR ---
PT TO CT SCAN BY ECHO.
--- NOTE | 2021-10-25 13:39 | NUR ---
LAB AT BEDSIDE.
[2021-10-25 14:19] LABS: BASOPHILS # (AUTO) 0.1 K/uL (0.00-0.22); BASOPHILS % (AUTO) 1.2 % (0.0-2.0); EOSINOPHILS % (AUTO) 0.5 % (0.0-4.0); HEMATOCRIT 42.1 % (36-52); HEMOGLOBIN 13.7 g/dL (12.0-18.0); LYMPHOCYTES # (AUTO) 1.5 K/uL (2.0-11.5); LYMPHOCYTES % (AUTO) 16.8 % (20.5-51.1); MEAN CORPUSCULAR HEMOGLOBIN 30 pg (27-31); MEAN CORPUSCULAR HGB CONC 33 g/dL (33-37); MEAN CORPUSCULAR VOLUME 91.1 fL (80-94); MONOCYTES # (AUTO) 0.6 K/uL (0.8-1.0); MONOCYTES % (AUTO) 7.1 % (1.7-9.3); NEUTROPHILS # (AUTO) 6.7 K/uL (1.8-7.7); NEUTROPHILS % (AUTO) 74.4 % (42.2-75.2); PLATELET COUNT (AUTO) 232 K/uL (140-450); RED BLOOD CELL COUNT(AUTO) 4.62 MIL/uL (4.20-6.10); RED CELL DISTRIBUTION WIDTH 13.7 % (11.6-13.7); WHITE BLOOD COUNT (AUTO) 9.1 K/uL (4.8-10.8)
[2021-10-25] MEDS ORDERED: KETOROLAC 30 MG/ML VIAL ONE (14:28)
[2021-10-25] MEDS: KETOROLAC 15 MG/ML VIAL IVP ONE (14:30)
[2021-10-25] MEDS: NACL 0.9% 1,000 ML IV SCH (14:32)
--- NOTE | 2021-10-25 14:45 | NUR ---
HELPED THE PT TO USE URINAL FOR UA SAMPLE BUT PT WAS UNABLE TO URINATE.
[2021-10-25 14:58] LABS: PROTHROMBIN TIME 11.3 secs (10.8-13.4)
[2021-10-25 14:59] LABS: ALBUMIN 3.4 g/dL (3.4-5.0); ANION GAP 12.8 (8-16); CARBON DIOXIDE 27.5 mmol/L (21-32); CREATININE 0.9 mg/dL (0.6-1.3); POTASSIUM 4.3 mmol/L (3.5-5.1); TOTAL BILIRUBIN 0.3 mg/dL (0.0-1.0)
--- NOTE | 2021-10-25 14:59 | NUR ---
PT WAS SOILED WITH BM, OREN AND INCONTINENT CARE WAS DONE.
[2021-10-25 15:31] LABS: PHENYTOIN (DILANTIN) < 0.5 ug/ml (10.0-20.0)
--- NOTE | 2021-10-25 16:04 | NUR ---
PT GOES TO [facility] [phone].
--- NOTE | 2021-10-25 16:12 | NUR ---
SPOKE WITH GRAY AT THE CLINIC AND DR GINA OSORIO FROM [facility] WILL CALL DR RAMIREZ BACK REGARDING THE PT. [phone].
--- NOTE | 2021-10-25 16:45 | NUR ---
PT SOILED WITH BM, INCONTINENT AND OREN CARE DONE.
[2021-10-25 17:45] LABS: APPEARANCE,URINE CLEAR (CLEAR); BILIRUBIN,URINE NEGATIVE (NEGATIVE); BLOOD, URINE NEGATIVE (NEGATIVE); COLOR,URINE YELLOW (YELLOW); LEUKOCYTE ESTERASE ,URINE NEGATIVE (NEGATIVE); NITRITE, URINE NEGATIVE (NEGATIVE); PH,URINE 5.5 (5.0-9.0); UGLUCOSE NEGATIVE (NEGATIVE)
[2021-10-25 18:34] VITALS: BP 148/80
--- NOTE | 2021-10-25 18:35 | NUR ---
Patient discharged with v/s stable. Written and verbal after care instructions given and explained. Patient verbalized understanding. Ambulatory with steady gait. All questions addressed prior to discharge. Advised to follow up with PMD.
--- NOTE | 2021-10-25 18:36 | NUR ---
Chart checked and completed. The patient's care was reviewed and supervised by Trice Armendariz RN.
== END 2021-10-25 18:04 | disposition home or self-care (01) ==
LOC: MED 12:15
DX: R07.9 Chest pain, unspecified (principal); Z20.822 Contact with and (suspected) exposure to COVID-19; R53.1 Weakness; R05.3 Chronic cough; K52.9 Noninfective gastroenteritis and colitis, unspecified; I10 Essential (primary) hypertension; F17.200 Nicotine dependence, unspecified, uncomplicated; I48.91 Unspecified atrial fibrillation; F03.90 Unspecified dementia, unspecified severity, without behavioral disturbance, psychotic disturbance, mood disturbance, and anxiety; Z86.73 Personal history of transient ischemic attack (TIA), and cerebral infarction without residual deficits; Z98.890 Other specified postprocedural states
CPT/HCPCS: 36415; 71045; 74176; 80053; 80162; 80185; 81003; 82553; 83605; 83880; 84484; 85025; 85610; 85730; 87040; 87086; 87426; 93005; 96361; 96374; 99285; J1885; J7030; Q0092

== ENCOUNTER 2021-10-28 09:11 | Emergency (ER) | payer OTHER, MEDICAID ==
[~2021-10-28] VITALS: Ht 154.9 cm; Wt 116.1 kg
--- NOTE | 2021-10-28 09:11 | NUR ---
PT VICTOR M [facility] TAKEN TO ER BED 9.
[2021-10-28 09:14] VITALS: BP 140/71
--- NOTE | 2021-10-28 09:27 | NUR ---
PT UNABLE TO PROVIDE UA AT THIS TIME, MATHEW MADE AWARE.
[2021-10-28] MEDS ORDERED: KETOROLAC 60 MG/2 ML VIAL IM ONE (09:30)
--- NOTE | 2021-10-28 09:32 | NUR ---
58 Y/O MALE BIBA FROM [facility] C/O ABD PAIN 01/29 DESCRIBES SHARP GENERALIZED WITH NOTED TENDERNESS TO RLQ AND RUQ X1DAY X1DAY S/P SMOKING A CIGARETTE. DYSURIA. DENIES SOB. DENIES CHEST PAIN. DENIES N/V/D. DENIES FEVER/CHILLS. PMH: HTN, HLD, RIGHT CVA (SEE PT CHART FOR EXTENSIVE HX) ALLERGIES: CARBAPENEMS, CEPHALSPORINS, PCN, BETALACTAMS, CILASTATIN, AND IMIPANEM
--- NOTE | 2021-10-28 09:33 | NUR ---
DR. RAMIREZ AT PT BEDSIDE FOR FURTHER EVALUATION.
--- NOTE | 2021-10-28 10:03 | NUR ---
GAVE REPORT TO LUKE SON IN [facility] FOR PENDING TRANFER.
--- NOTE | 2021-10-28 10:11 | NUR ---
Patient discharged with v/s stable. Written and verbal after care instructions given and explained. Patient alert, oriented and verbalized understanding of instructions. Wheel Chair Assisted with to home. All questions addressed prior to discharge. ID band removed. Patient advised to follow up with PMD.NO Rx given. Patient educated on indication of medication including possible reaction and side effects. Opportunity to ask questions provided and answered.
[2021-10-28 10:15] VITALS: BP 132/68
== END 2021-10-28 10:11 | disposition home or self-care (01) ==
LOC: MED 09:11
DX: R10.9 Unspecified abdominal pain (principal); R30.0 Dysuria; R19.7 Diarrhea, unspecified; F03.90 Unspecified dementia, unspecified severity, without behavioral disturbance, psychotic disturbance, mood disturbance, and anxiety; I10 Essential (primary) hypertension; F17.200 Nicotine dependence, unspecified, uncomplicated; Z79.899 Other long term (current) drug therapy; Z88.0 Allergy status to penicillin; Z88.1 Allergy status to other antibiotic agents; Z88.8 Allergy status to other drugs, medicaments and biological substances; Z86.73 Personal history of transient ischemic attack (TIA), and cerebral infarction without residual deficits
CPT/HCPCS: 81002; 96372; 99283; J1885

== ENCOUNTER 2022-01-07 14:58 | Emergency (ER) | payer OTHER, MEDICAID ==
[~2022-01-07] VITALS: Ht 177.8 cm; Wt 86.2 kg
[2022-01-07 15:00] VITALS: BP 122/88
--- NOTE | 2022-01-07 15:03 | NUR ---
BIBA BLS TO ER BED 9
[2022-01-07] MEDS ORDERED: KETOROLAC 30 MG/ML VIAL IVP ONE (15:25)
[2022-01-07] MEDS ORDERED: NACL 0.9% 1,000 ML IV SCH (15:25)
--- NOTE | 2022-01-07 15:35 | NUR ---
66 y/o male, pt presents to ed with c/o abd pain that started yesterday. pt states pain is dull intermittent. pt denies fever, chills, n/v/d, cough, sore throat. a&ox3, states wants and needs, pt does not ambulate, but per facility is normal to baseline. pmh: afib, cva right side deficit, dementia, htn, seziure allergy: Carbapenems, Cephalosporins, Penicillins, cilastatin, imipenem
--- NOTE | 2022-01-07 16:08 | NUR ---
tri swabbed at this time
[2022-01-07 16:29] LABS: BASOPHILS # (AUTO) 0.1 K/uL (0.00-0.22); BASOPHILS % (AUTO) 0.8 % (0.0-2.0); EOSINOPHILS # (AUTO) 0.1 K/uL (0-0.4); EOSINOPHILS % (AUTO) 1.6 % (0.0-4.0); HEMATOCRIT 43.2 % (36-52); HEMOGLOBIN 14.4 g/dL (12.0-18.0); LYMPHOCYTES % (AUTO) 25.1 % (20.5-51.1); MEAN CORPUSCULAR HEMOGLOBIN 30 pg (27-31); MEAN CORPUSCULAR HGB CONC 33 g/dL (33-37); MEAN CORPUSCULAR VOLUME 88.3 fL (80-94); MONOCYTES # (AUTO) 0.7 K/uL (0.8-1.0); MONOCYTES % (AUTO) 8.4 % (1.7-9.3); NEUTROPHILS % (AUTO) 64.1 % (42.2-75.2); PLATELET COUNT (AUTO) 225 K/uL (140-450); RED BLOOD CELL COUNT(AUTO) 4.89 MIL/uL (4.20-6.10); RED CELL DISTRIBUTION WIDTH 14.7 % (11.6-13.7); WHITE BLOOD COUNT (AUTO) 7.8 K/uL (4.8-10.8)
[2022-01-07 16:53] LABS: ALBUMIN 3.5 g/dL (3.4-5.0); ANION GAP 13.3 (8-16); CREATININE 1.1 mg/dL (0.6-1.3); POTASSIUM 4.3 mmol/L (3.5-5.1); TOTAL BILIRUBIN 0.4 mg/dL (0.0-1.0)
--- NOTE | 2022-01-07 17:20 | NUR ---
michelle cotton called for pt report back to facility, voicemail left at this time.
--- NOTE | 2022-01-07 17:30 | NUR ---
michelle cotton called for pt report back to facility, no answer.
[2022-01-07 17:38] VITALS: BP 130/65
--- NOTE | 2022-01-07 17:38 | NUR ---
Patient discharged with v/s stable. Written and verbal after care instructions given and explained. Patient verbalized understanding. Wheel Chair Assisted to skilled nursing. All questions addressed prior to discharge. Advised to follow up with PMD.
== END 2022-01-07 17:38 | disposition home or self-care (01) ==
LOC: MED 14:58
DX: R10.9 Unspecified abdominal pain (principal); Z20.822 Contact with and (suspected) exposure to COVID-19; F03.90 Unspecified dementia, unspecified severity, without behavioral disturbance, psychotic disturbance, mood disturbance, and anxiety; I48.91 Unspecified atrial fibrillation; I10 Essential (primary) hypertension; Z86.73 Personal history of transient ischemic attack (TIA), and cerebral infarction without residual deficits; Z88.0 Allergy status to penicillin; Z88.1 Allergy status to other antibiotic agents; Z88.8 Allergy status to other drugs, medicaments and biological substances
CPT/HCPCS: 36415; 74176; 80053; 81002; 83690; 85025; 87426; 96361; 96374; 99284; J1885; J7030

== ENCOUNTER 2022-03-16 12:52 | Inpatient (IN) | payer OTHER, MEDICAID ==
[~2022-03-16] VITALS: Ht 193 cm; Wt 111.6 kg
[2022-03-16 13:05] VITALS: BP 126/85
--- NOTE | 2022-03-16 13:26 | NUR ---
66M VICTOR M from [facility] with c/o ABD and dizziness today. Per EMS pt has not ate or had BM since yesterday, stating he feels lightheaded today. Pt reports a constant aching like 6/10 pain to mid ABD. Unknown if meds were given for pain. Pt changed into gown, placed on bedside monitor.
--- NOTE | 2022-03-16 14:14 | NUR ---
LAB AT BEDSIDE
[2022-03-16 14:21] LABS: BASOPHILS # (AUTO) 0.1 K/uL (0.00-0.22); BASOPHILS % (AUTO) 0.6 % (0.0-2.0); EOSINOPHILS # (AUTO) 0.1 K/uL (0-0.4); EOSINOPHILS % (AUTO) 0.6 % (0.0-4.0); HEMATOCRIT 40.4 % (36-52); HEMOGLOBIN 13.3 g/dL (12.0-18.0); LYMPHOCYTES # (AUTO) 1.1 K/uL (2.0-11.5); LYMPHOCYTES % (AUTO) 10.5 % (20.5-51.1); MEAN CORPUSCULAR HEMOGLOBIN 29 pg (27-31); MEAN CORPUSCULAR HGB CONC 33 g/dL (33-37); MEAN CORPUSCULAR VOLUME 88.5 fL (80-94); MONOCYTES # (AUTO) 1.1 K/uL (0.8-1.0); MONOCYTES % (AUTO) 10.4 % (1.7-9.3); NEUTROPHILS # (AUTO) 8.2 K/uL (1.8-7.7); NEUTROPHILS % (AUTO) 77.9 % (42.2-75.2); PLATELET COUNT (AUTO) 200 K/uL (140-450); RED BLOOD CELL COUNT(AUTO) 4.57 MIL/uL (4.20-6.10); RED CELL DISTRIBUTION WIDTH 14.8 % (11.6-13.7); WHITE BLOOD COUNT (AUTO) 10.5 K/uL (4.8-10.8)
[2022-03-16 14:34] LABS: ALBUMIN 3.3 g/dL (3.4-5.0); CARBON DIOXIDE 27.1 mmol/L (21-32); POTASSIUM 4.1 mmol/L (3.5-5.1); TOTAL BILIRUBIN 0.5 mg/dL (0.0-1.0)
[2022-03-16] MEDS ORDERED: MORPHINE SULFATE 4 MG/ML SYR IVP ONE (14:45)
[2022-03-16] MEDS ORDERED: MORPHINE SULFATE 4 MG/ML SYR IM ONE (16:10)
[2022-03-16 16:23] LABS: APPEARANCE,URINE CLEAR (CLEAR); BILIRUBIN,URINE NEGATIVE (NEGATIVE); BLOOD, URINE TRACE-I (NEGATIVE); COLOR,URINE YELLOW (YELLOW); LEUKOCYTE ESTERASE ,URINE NEGATIVE (NEGATIVE); NITRITE, URINE NEGATIVE (NEGATIVE); UGLUCOSE NEGATIVE (NEGATIVE)
[2022-03-16 16:37] LABS: OTHER CASTS, URINE None Seen /LPF (None Seen); WBC,URINE 0-5 /HPF (0-5)
[2022-03-16] MEDS ORDERED: METOPROLOL SUCCINATE 50 MG TABER PO STA (17:11)
[2022-03-16] MEDS ORDERED: MORPHINE SULFATE 5 MG/ML VIAL IVP ONE (17:55)
--- NOTE | 2022-03-16 17:59 | NUR ---
Georgie swab collected and handed to laboratory miller.
[2022-03-16] MEDS ORDERED: ONDANSETRON 4 MG/2 ML VIAL IVP PRN (18:05)
[2022-03-16] MEDS ORDERED: DOCUSATE SODIUM 100 MG GELCAP PO PRN (18:05)
[2022-03-16] MEDS ORDERED: MORPHINE SULFATE 2 MG/ML SYR IVP PRN (18:05)
[2022-03-16] MEDS ORDERED: ACETAMINOPHEN 325 MG TAB PO PRN (18:05)
[2022-03-16] MEDS ORDERED: LORazepam 2 MG/ML VIAL IVP PRN (18:05)
[2022-03-16] MEDS ORDERED: POTASSIUM CHLORIDE 10 MEQ TABER PO PRN (18:05)
[2022-03-16] MEDS ORDERED: MAG SULF 2000 MG/WATER PREMIX 50 ML IV PRN (18:05)
[2022-03-16] MEDS ORDERED: ZOLPIDEM 10 MG TAB PO PRN (18:05)
--- NOTE | 2022-03-16 18:16 | NUR ---
Pt not complaining of any pain, holding one time order of Morphine IVP.
[2022-03-16 20:30] VITALS: BP 122/84
--- NOTE | 2022-03-16 20:30 | NUR ---
RECIEVED PT AAOX4 , FROM ER/ [place] , TRANSFER TO BED SAFELY , ON TELE MONITOR , MIDLINE INTACT AND PATENT , ADMISSION ASSESSMENT WILL BE DONE , PUT ON FALL PREC. PROTOCOL , PUT ON ISOLATION PROTOCOL . PLAN OF CARE DISCUSSED AND VERBALIZES UNDERSTANDING . DENIES ANY PAIN , WILL CONT. TO MONITOR , FOR STOOL COLLECTION .
--- NOTE | 2022-03-16 20:33 | NUR ---
PATIENT TRANSFERRED TO [facility], RM 118. REPORT GIVEN TO NURSE
--- NOTE | 2022-03-16 21:02 | NUR ---
BP 140/82 , HR 105 - NO COMPLAIN MADE , ON TELE MONITOR , URINAL / CALL LIGHT WITHIN REACH .
--- NOTE | 2022-03-17 | NUR ---
ROUNDS , NO COMPLAIN MADE , ON TELE MONITOR , URINAL/ CALL LIGHT WITHIN REACH .
--- NOTE | 2022-03-17 02:00 | NUR ---
SLEEPING , CALL LIGHT WITHIN REACH .
--- NOTE | 2022-03-17 03:20 | NUR ---
HAD BM - WATERY IN SMALL AMOUNT , WILL CONT. TO MONITOR - BP 130/90 , DENIES PAIN . CALL LIGHT WITHIN REACH .
[2022-03-17 04:00] VITALS: BP 130/92
--- NOTE | 2022-03-17 06:00 | NUR ---
rounds , sleeping , arousable by sounds and touch , will cont. to monitor .
--- NOTE | 2022-03-17 07:00 | NUR ---
endorsed pt for cont. of care . still for stool collection .
[2022-03-17 08:00] VITALS: BP 135/85
[2022-03-17] MEDS ORDERED: METOPROLOL 25 MG TAB PO SCH (09:00)
[2022-03-17] MEDS: ZINC SULF 220 MG CAP PO SCH (09:00)
[2022-03-17] MEDS: ASCORBIC ACID 500 MG TAB PO SCH (09:00)
[2022-03-17] MEDS ORDERED: DEXAMETHASONE 4 MG/ML VIAL IVP SCH (09:00)
[2022-03-17 09:31] LABS: BASOPHILS # (AUTO) 0.1 K/uL (0.00-0.22); BASOPHILS % (AUTO) 0.9 % (0.0-2.0); EOSINOPHILS # (AUTO) 0.1 K/uL (0-0.4); EOSINOPHILS % (AUTO) 0.6 % (0.0-4.0); HEMATOCRIT 40.8 % (36-52); HEMOGLOBIN 13.6 g/dL (12.0-18.0); LYMPHOCYTES # (AUTO) 1.2 K/uL (2.0-11.5); LYMPHOCYTES % (AUTO) 12.6 % (20.5-51.1); MEAN CORPUSCULAR HEMOGLOBIN 30 pg (27-31); MEAN CORPUSCULAR HGB CONC 33 g/dL (33-37); MEAN CORPUSCULAR VOLUME 88.9 fL (80-94); MONOCYTES # (AUTO) 1.2 K/uL (0.8-1.0); MONOCYTES % (AUTO) 12.8 % (1.7-9.3); NEUTROPHILS # (AUTO) 6.8 K/uL (1.8-7.7); NEUTROPHILS % (AUTO) 73.1 % (42.2-75.2); PLATELET COUNT (AUTO) 191 K/uL (140-450); RED BLOOD CELL COUNT(AUTO) 4.59 MIL/uL (4.20-6.10); RED CELL DISTRIBUTION WIDTH 14.9 % (11.6-13.7); WHITE BLOOD COUNT (AUTO) 9.3 K/uL (4.8-10.8)
--- NOTE | 2022-03-17 10:20 | NUR ---
PATIENT HAS BEEN SCREENED AND CATEGORIZED MODERATE NUTRITION RISK. PATIENT WILL BE SEEN WITHIN 3-5 DAYS OF ADMISSION. 03/19/2211/30/[address]
[2022-03-17] MEDS: DILTIAZEM 120 MG CAPER PO SCH (14:34)
[2022-03-17] MEDS: DIGOXIN 0.125 MG TAB PO SCH (14:35)
[2022-03-17 16:00] VITALS: BP 130/68
--- NOTE | 2022-03-17 19:10 | NUR ---
RECEIVED REPORT FROM DAY SHIFT RN FOR CONTINUITY OF CARE. PT IS AAOX2 ON RA. PT IS SATING 97%. PT HAS BALDEMAR MIDLINE DOUBLE LUMEN. PT USES URINAL AND USES CALL LIGHT FOR ASSISTANCE. PLAN OF CARE DISCUSSED. WILL CONTINUE TO MONITOR THE PT.
[2022-03-17 20:00] VITALS: BP 111/65
[2022-03-17] MEDS: carvediloL 3.125 MG TAB PO SCH (21:10)
[2022-03-17] MEDS: APIXABAN 2.5 MG TAB PO SCH (21:11)
--- NOTE | 2022-03-17 21:14 | NUR ---
SCHEDULE MEDICATIONS GIVEN. NO ADVERSE REACTION NOTED. WILL CONTINUE TO MONITOR THE PT.
[2022-03-18] VITALS: BP 105/59
--- NOTE | 2022-03-18 00:39 | NUR ---
PT OBSERVED. PT IS SLEEPING COMFORTABLY IN BED. PT IS NOT IN ANY ACUTE DISTRESS. PT IS SATING 98%. WILL CONTINUE TO MONITOR THE PT.
--- NOTE | 2022-03-18 03:15 | NUR ---
PT CALLED CASE REPAIRER LIGHT. ENTER PT ROOM. PT ACCIDENTLY HIT CALL LIGHT TO TURN ON T.V. PT DENIES ANY PAIN AND HAS NO COMPLAINS AT THIS TIME. WILL CONTINUE TO MONITOR THE PT.
[2022-03-18 04:00] VITALS: BP 120/65
--- NOTE | 2022-03-18 05:00 | NUR ---
PT OBSERVED. PT IS SLEEPING COMFORTABLY IN BED. PT IS NOT IN ANY ACUTE DISTRESS. PT IS SATING 97%. WILL CONTINUE TO MONITOR THE PT.
--- NOTE | 2022-03-18 07:14 | NUR ---
ENDORSED PT TO DAY SHIFT RN FOR CONTINUITY OF CARE. PT IS STABLE.
[2022-03-18 08:00] VITALS: BP 130/82
[2022-03-18 08:35] LABS: CARBON DIOXIDE 27.5 mmol/L (21-32); POTASSIUM 4.5 mmol/L (3.5-5.1)
[2022-03-18 09:02] LABS: BASOPHILS % (AUTO) 0.6 % (0.0-2.0); EOSINOPHILS # (AUTO) 0.1 K/uL (0-0.4); EOSINOPHILS % (AUTO) 1.8 % (0.0-4.0); HEMATOCRIT 44.1 % (36-52); HEMOGLOBIN 14.6 g/dL (12.0-18.0); LYMPHOCYTES # (AUTO) 1.2 K/uL (2.0-11.5); MEAN CORPUSCULAR HEMOGLOBIN 29 pg (27-31); MEAN CORPUSCULAR HGB CONC 33 g/dL (33-37); MEAN CORPUSCULAR VOLUME 88.9 fL (80-94); MONOCYTES # (AUTO) 1.2 K/uL (0.8-1.0); MONOCYTES % (AUTO) 14.8 % (1.7-9.3); NEUTROPHILS # (AUTO) 5.8 K/uL (1.8-7.7); NEUTROPHILS % (AUTO) 68.8 % (42.2-75.2); PLATELET COUNT (AUTO) 177 K/uL (140-450); RED BLOOD CELL COUNT(AUTO) 4.96 MIL/uL (4.20-6.10); RED CELL DISTRIBUTION WIDTH 14.7 % (11.6-13.7); WHITE BLOOD COUNT (AUTO) 8.5 K/uL (4.8-10.8)
[2022-03-18] MEDS: APIXABAN 2.5 MG TAB PO SCH ×2 (09:52→21:52)
[2022-03-18] MEDS: ENALAPRIL 10 MG TAB PO SCH (09:52)
[2022-03-18] MEDS: carvediloL 3.125 MG TAB PO SCH ×2 (09:52→20:25)
[2022-03-18] MEDS: ATORVASTATIN 20 MG TAB PO SCH (09:53)
[2022-03-18] MEDS: ZINC SULF 220 MG CAP PO SCH (09:53)
[2022-03-18] MEDS: DIGOXIN 0.125 MG TAB PO SCH (09:54)
[2022-03-18] MEDS: DILTIAZEM 120 MG CAPER PO SCH (09:54)
[2022-03-18] MEDS: ASCORBIC ACID 500 MG TAB PO SCH (09:54)
[2022-03-18 12:00] VITALS: BP 138/72
[2022-03-18] MEDS: NACL 0.9% 1,000 ML IV SCH (14:27)
[2022-03-18] MEDS: LEVOFLOXACIN 500 MG/D5W PREMIX 100 ML IV SCH (15:06)
[2022-03-18 16:27] VITALS: BP 125/65
[2022-03-18 20:26] VITALS: BP 70/39
--- NOTE | 2022-03-18 20:26 | NUR ---
BP 70/39 - REFERRED TO DR. AMADO , COREG NOT GIVEN - WATING FOR RESPONSE Addendum: 03/19/22 at 0104 by Aria Wolff RN AT 2029 DR. AMADO RESPOND - NSS 500CC BOLUS NOW 1 DOSE AND MIDOCRINE 5MG /TAB 1 TAB P.O NOW X1 DOSE - IF BP DOSE NOT IMPROVE START LEVOPED ORDERED BY DR. AMADO .- WILL CARRY OUT .
[2022-03-18] MEDS: NACL 0.9% 500 ML IV SCH ×4 (20:30→21:32)
[2022-03-18] MEDS ORDERED: MIDODRINE 5 MG TAB PO SCH (20:31)
[2022-03-18] MEDS ORDERED: MIDODRINE 5 MG TAB ONE (20:41)
--- NOTE | 2022-03-18 21:00 | NUR ---
BP RE CHECK - 90/59 - WILL CONT. TO MONITOR .CALL LIGHT WITHIN REACH .
--- NOTE | 2022-03-18 22:00 | NUR ---
BP RE CHECK 99/60 - WILL CONT. TO MONITOR - ON TELE MONITOR , CALL LIGHT WITHIN REACH .
[2022-03-19] VITALS: BP 90/60
--- NOTE | 2022-03-19 | NUR ---
SLEEPING , BUT EASILY AROUSABLE BY SOUNDS AND TOUCH , NO COMPLAIN MADE , ON TELE MONITOR , CALL LIGHT WITHIN REACH.
--- NOTE | 2022-03-19 03:38 | NUR ---
HIT CALL LIGHT , HAD BM - WATERY W/ PARTICLES IN MODERATE AMOUNT , DENIES ANY PAIN , WILL CONT. TO MONITOR , CALL LIGHT WITHIN REACH .
[2022-03-19 04:00] VITALS: BP 103/60
[2022-03-19] MEDS: NACL 0.9% 1,000 ML IV SCH ×2 (06:35→17:13)
--- NOTE | 2022-03-19 06:45 | NUR ---
QUESTIONING PHARMACIST WHY THEY PUT FREQ NSS EVERY 30MINS , BUT I JUST ONLY PUT ORDER NSS BOLUS 1 DOSE ONLY - PER PHARMACIST THEY WILL DELETE IT .
--- NOTE | 2022-03-19 06:55 | NUR ---
INFORMED DR. MENA PT SKIPPED COREG LAST NIGHT DUE TO LOW BP ... AND THEN THE PT HAS UNCONTROLLED A FIB ON TELE MONITOR ALTHOUGH PT IS NO COMPLAIN MADE - WILL WAIT DR. MENA RESPOND - FOR CLOSELY WATCH . PT CALL LIGHT IS REACHABLE BY PT .
--- NOTE | 2022-03-19 07:30 | NUR ---
RECEIVED REPORT FROM NIGHTSHIFT NURSE, ALEX. PT AWAKE AND ALERT. NO SOB OR RESPIRATORY DISTRESS. ON RA. DENIES PAIN. R SIDE WEAKNESS NOTED. ON MECHANICAL SOFT DIET. L FA MIDLINE DOUBLE LUMEN DRESSING C/D/I. NEEDS ALL MET AT THIS TIME. ALL SAFETY MEASURES IN PLACE.
--- NOTE | 2022-03-19 07:30 | NUR ---
ENDORSED PT FOR CONT. OF CARE , I ENDORSED TO SOUTH RN SHE HAVE TO FF UP IF THERE IS FURTHER ORDER FROM DR. MENA BECAUSE I INFROMED DR. MENA PT SKIPPED THE COREG LAST NIGHT AND THE PT NOW HAS UNCONTROLLED A FIB BUT ASYMPTOMATIC . I ENDORSED PT HAD 3 TIME WATERY STOOL - LATEST BP 103/60 .
[2022-03-19 07:51] LABS: ANION GAP 15.9 (8-16); CARBON DIOXIDE 20.7 mmol/L (21-32); CREATININE 1.2 mg/dL (0.6-1.3); POTASSIUM 4.6 mmol/L (3.5-5.1)
[2022-03-19 08:00] VITALS: BP 113/69
[2022-03-19] MEDS: ENALAPRIL 10 MG TAB PO SCH (09:00)
[2022-03-19] MEDS: APIXABAN 2.5 MG TAB PO SCH ×2 (09:03→21:40)
[2022-03-19] MEDS: ZINC SULF 220 MG CAP PO SCH (09:04)
[2022-03-19] MEDS: ATORVASTATIN 20 MG TAB PO SCH (09:05)
[2022-03-19] MEDS: DILTIAZEM 120 MG CAPER PO SCH (09:05)
[2022-03-19] MEDS: DIGOXIN 0.125 MG TAB PO SCH (09:05)
[2022-03-19] MEDS: carvediloL 3.125 MG TAB PO SCH ×2 (09:05→21:40)
[2022-03-19 09:11] LABS: BASOPHILS % (AUTO) 0.3 % (0.0-2.0); EOSINOPHILS # (AUTO) 0.1 K/uL (0-0.4); EOSINOPHILS % (AUTO) 1.3 % (0.0-4.0); HEMATOCRIT 43.8 % (36-52); HEMOGLOBIN 14.4 g/dL (12.0-18.0); LYMPHOCYTES # (AUTO) 1.4 K/uL (2.0-11.5); LYMPHOCYTES % (AUTO) 16.8 % (20.5-51.1); MEAN CORPUSCULAR HEMOGLOBIN 29 pg (27-31); MEAN CORPUSCULAR HGB CONC 33 g/dL (33-37); MEAN CORPUSCULAR VOLUME 89.1 fL (80-94); NEUTROPHILS # (AUTO) 5.9 K/uL (1.8-7.7); NEUTROPHILS % (AUTO) 69.6 % (42.2-75.2); PLATELET COUNT (AUTO) 208 K/uL (140-450); RED BLOOD CELL COUNT(AUTO) 4.92 MIL/uL (4.20-6.10); WHITE BLOOD COUNT (AUTO) 8.5 K/uL (4.8-10.8)
[2022-03-19] MEDS: ASCORBIC ACID 500 MG TAB PO SCH (09:12)
--- NOTE | 2022-03-19 10:30 | NUR ---
PT WITH MODERATE SIZE BM. STUDENT NURSE CLEANED AND REPOSITIONED PT. PT TOLERATED WELL. ALL NEEDS MET. ALL SAFETY MEASURES IN PLACE.
--- NOTE | 2022-03-19 11:00 | NUR ---
DC PLANNING SW MET W/ PT AT BEDSIDE TO COMPLETE ASSESSMENT. PT REPORTS RESIDING AT [facility] SINCE AUGUST. PT IDENTIFIES HIS SISTER, GARRETT LAFLEUR, AND KEN KRUSE, MOM, EMERGENCY CONTACTS. PT REPORTS LAST VISIT WITH PCP, " SOME TIME THIS YR" HOWEVER, COULD NOT RECALL DATE. PT REPORTS MEDICATION COMPLIANCE AND REPORTS FACILITY ADMINISTERS MEDICATION NEEDED. PT REPORTS UTILIZING WC AND REQUIRES ASSISTANCE WITH ADL'S THAT [facility] STAFF AIDS WITH. PT DENIES HX OF DIABETES, DIALYSIS [place]. PT REPORTS DC PLAN IS TO RETURN HOME, WHEN MEDICALLY STABLE. SW INQUIRED ON RESOURCES NEEDED, PT DECLINED. Addendum: 03/20/22 at 0753 by Jared HAYS Amended: Links added.
[2022-03-19 12:00] VITALS: BP 105/66
[2022-03-19] MEDS: LEVOFLOXACIN 500 MG/D5W PREMIX 100 ML IV SCH (14:19)
[2022-03-19 16:00] VITALS: BP 120/45
--- NOTE | 2022-03-19 18:41 | NUR ---
PT STABLE. VSS. WILL ENDORSE POC TO NIGHTSHIFT NURSE.
--- NOTE | 2022-03-19 19:20 | NUR ---
BEDSIDE REPORT GIVEN TO NIGHTSHIFT NURSEALEX FOR CONTINUITY OF CARE.
[2022-03-19 20:00] VITALS: BP 123/73
--- NOTE | 2022-03-19 21:39 | NUR ---
BP 123/73 , HR 97 , - WILL GIVE SCHED MEDS P.O , ON TELE MONITOR , CALL LIGHT WITHIN REACH .
[2022-03-20] VITALS: BP 90/62
--- NOTE | 2022-03-20 02:16 | NUR ---
ROUNDS , NO S/SX OF ACUTE DISTRESS NOTED , CALL LIGHT WITHIN REACH .
[2022-03-20 04:00] VITALS: BP 90/60
--- NOTE | 2022-03-20 04:00 | NUR ---
VOIDE THRU URINAL , NO S/SX OF ACUTE DISTRESS NOTED , WILL CONT. TO MONITOR
[2022-03-20] MEDS: NACL 0.9% 1,000 ML IV SCH ×2 (05:40→17:00)
--- NOTE | 2022-03-20 06:00 | NUR ---
ROUNDS , REQUESTING WARM BLANKET , WILL PROVIDE , NO S/SX OF ACUTE DISTRESS NOTED . WILL CONT. TO MONITOR .
--- NOTE | 2022-03-20 07:10 | NUR ---
ENDORSED PT FOR CONT. OF CARE . LATEST BP 90/60 , ON TELE MONITOR .
--- NOTE | 2022-03-20 07:30 | NUR ---
REPORT RECEIVED REPORT FROM NIGHTSHIFT NURSE ALEX. PT ASLEEP. CHEST RISING AND FALLING. IN NO ACUTE DISTRESS. NO SOB NOTED. ON RA. NS @ 75 ML/HR ON LFA MIDLINE. NEEDS ALL MET AT THIS TIME. ALL SAFETY MEASURES IN PLACE.
[2022-03-20 07:44] LABS: BASOPHILS % (AUTO) 0.6 % (0.0-2.0); EOSINOPHILS # (AUTO) 0.2 K/uL (0-0.4); EOSINOPHILS % (AUTO) 2.3 % (0.0-4.0); HEMATOCRIT 41.6 % (36-52); HEMOGLOBIN 13.7 g/dL (12.0-18.0); LYMPHOCYTES # (AUTO) 1.5 K/uL (2.0-11.5); LYMPHOCYTES % (AUTO) 18.5 % (20.5-51.1); MEAN CORPUSCULAR HEMOGLOBIN 29 pg (27-31); MEAN CORPUSCULAR HGB CONC 33 g/dL (33-37); MEAN CORPUSCULAR VOLUME 88.5 fL (80-94); MONOCYTES # (AUTO) 0.8 K/uL (0.8-1.0); MONOCYTES % (AUTO) 10.4 % (1.7-9.3); NEUTROPHILS # (AUTO) 5.6 K/uL (1.8-7.7); NEUTROPHILS % (AUTO) 68.2 % (42.2-75.2); PLATELET COUNT (AUTO) 213 K/uL (140-450); RED CELL DISTRIBUTION WIDTH 14.5 % (11.6-13.7); WHITE BLOOD COUNT (AUTO) 8.1 K/uL (4.8-10.8)
[2022-03-20 08:00] VITALS: BP 130/62
[2022-03-20] MEDS: ZINC SULF 220 MG CAP PO SCH (09:30)
[2022-03-20] MEDS: DILTIAZEM 120 MG CAPER PO SCH (09:30)
[2022-03-20] MEDS: DIGOXIN 0.125 MG TAB PO SCH (09:30)
[2022-03-20] MEDS: ASCORBIC ACID 500 MG TAB PO SCH (09:31)
[2022-03-20] MEDS: carvediloL 3.125 MG TAB PO SCH ×2 (09:31→20:30)
[2022-03-20] MEDS: ENALAPRIL 10 MG TAB PO SCH (09:31)
[2022-03-20] MEDS: ATORVASTATIN 20 MG TAB PO SCH (09:34)
[2022-03-20] MEDS: APIXABAN 2.5 MG TAB PO SCH ×2 (09:34→20:32)
[2022-03-20 09:40] LABS: ANION GAP 11.4 (8-16); CARBON DIOXIDE 25.1 mmol/L (21-32); POTASSIUM 4.5 mmol/L (3.5-5.1)
[2022-03-20 12:00] VITALS: BP 126/60
[2022-03-20] MEDS ORDERED: APIX2.5 PO (12:13)
[2022-03-20] MEDS ORDERED: ZINC220C29 PO (12:13)
[2022-03-20] MEDS ORDERED: CARV3.122 PO (12:13)
[2022-03-20] MEDS ORDERED: ATOR20TA40 PO (12:13)
[2022-03-20] MEDS ORDERED: DILT120C95 PO (12:13)
[2022-03-20] MEDS ORDERED: VITC500 PO (12:13)
[2022-03-20] MEDS ORDERED: DIGO0.1211 PO (12:13)
[2022-03-20] MEDS ORDERED: ENAL10TA51 PO (12:13)
--- NOTE | 2022-03-20 12:14 | NUR ---
PT TITRATED TO ROOM AIR, TOLERATING WELL. SPO2 97% HR 79 RR 16. NO INCREASED WOB OR RESPIRATORY DISTRESS NOTED.
[2022-03-20] MEDS: LEVOFLOXACIN 500 MG/D5W PREMIX 100 ML IV SCH (15:02)
[2022-03-20 16:00] VITALS: BP 124/66
--- NOTE | 2022-03-20 18:33 | NUR ---
HOURLY ROUNDING CONDUCTED THROUGHOUT SHIFT. PT STABLE.
--- NOTE | 2022-03-20 19:21 | NUR ---
BEDSIDE REPORT GIVEN TO NIGHTSHIFT NURSE, WIL FOR CONTIUITY OF CARE.
--- NOTE | 2022-03-20 19:30 | NUR ---
RECEIVED REPORT FROM DAY SHIFT NURSE SOUTH FOR CONTINUITY OF CARE. PATIENT IS A&O X2. PATIENT IS ON ROOM AIR, BREATHING IS NORMAL WITH SYMMETRICAL RISE AND FALL OF CHEST. PATIENT HAS A MIDLINE DOUBLE LUMEN LEFT ARM; RUNNING NS AT 75. PATIENT IS ON DROPLET ISOLATION AND IS COVID +. PATIENT IS LYING IN A SEMI-FOWLERS POSITION, WHEELS LOCKED, CALL LIGHT IN PLACE. WILL CONTINUE TO OBSERVE PATIENT.
[2022-03-20 20:00] VITALS: BP 123/72
--- NOTE | 2022-03-20 20:45 | NUR ---
PATIENT CALLED AND ASKED TO BE CHANGED. PATIENT HAD A BM AND WAS WET. PATIENT WAS CLEANED AND GIVEN A NEW MATTRESS COVER AND CHUCKS WITH THE ASSISTANCE OF MCKENNA FERIMN. PATIENT HAS RIGHT SIDED WEAKNESS FROM STROKE. PATIENT TOLERATED CHANGING WELL. 2100 MEDICATIONS WERE ADMINISTERED TO PATIENT. PATIENT TOLERATED MEDICATIONS WELL WITH NO DIFFICULTY IN SWALLOWING. WILL CONTINUE TO OBSERVE PATIENT.
--- NOTE | 2022-03-20 22:50 | NUR ---
PATIENT CALLED AND REQUESTED TO BE CHANGED AGAIN. PATIENT HAD A BM AND WAS CLEANED AND GIVEN NEW CHUCKS BY MCKENNA FERMIN AND MYSELF. PATIENT TOLERATED CHANGE WELL BEING ABLE TO TURN ON HIS RIGHT SIDE ON HIS OWN, BUT NEEDING ASSISTANCE TO TURN ON HIS LEFT SIDE. WILL CONTINUE TO OBSERVE PATIENT.
[2022-03-21] VITALS: BP 121/70
--- NOTE | 2022-03-21 00:30 | NUR ---
PATIENT CALLED AND REQUESTED TO BE CHANGED. PATIENT WAS CHANGED WITH THE ASSISTANCE OF MCKENNA FERMIN. PATIENT WAS CLEANED AND NEW CHUCKS WERE APPLIED OVER PATIENT'S PERINEAL AREA. PATIENT TOLERATED CHANGING WELL. BREATHING WAS NORMAL WITH SYMMETRICAL RISE AND FALL OF CHEST. WILL CONTINUE TO OBSERVE PATIENT.
--- NOTE | 2022-03-21 03:00 | NUR ---
LOOKED IN ON PATIENT. PATIENT WAS SLEEPING, LYING IN SEMI-FOWLERS POSITION. BED IS IN LOWEST POSITION WITH WHEELS LOCKED AND CALL LIGHT IN PLACE. BREATHING WAS NORMAL WITH SYMMETRICAL RISE AND FALL OF CHEST. IV WAS RUNNING NS AT 75. WILL CONTINUE TO OBSERVE PATIENT.
[2022-03-21 04:00] VITALS: BP 131/75
--- NOTE | 2022-03-21 06:00 | NUR ---
LOOKED IN ON PATIENT. PATIENT WAS SLEEPING, LYING IN SEMI-FOWLERS POSITION. BREATHING WAS NORMAL WITH SYMMETRICAL RISE AND FALL OF CHEST. IV WAS RUNNING NS AT 75. WILL CONTINUE TO OBSERVE PATIENT.
--- NOTE | 2022-03-21 07:30 | NUR ---
ENDORSED CONTINUITY OF CARE TO DAY SHIFT NURSE LENORA. PATIENT IS STABLE.
[2022-03-21 07:56] LABS: ANION GAP 12.2 (8-16); CARBON DIOXIDE 29.3 mmol/L (21-32); CREATININE 0.9 mg/dL (0.6-1.3); POTASSIUM 4.5 mmol/L (3.5-5.1)
[2022-03-21 08:00] VITALS: BP 106/67
[2022-03-21 08:08] LABS: BASOPHILS % (AUTO) 0.5 % (0.0-2.0); EOSINOPHILS # (AUTO) 0.2 K/uL (0-0.4); HEMATOCRIT 43.1 % (36-52); HEMOGLOBIN 14.2 g/dL (12.0-18.0); LYMPHOCYTES # (AUTO) 2.2 K/uL (2.0-11.5); LYMPHOCYTES % (AUTO) 23.9 % (20.5-51.1); MEAN CORPUSCULAR HEMOGLOBIN 29 pg (27-31); MEAN CORPUSCULAR HGB CONC 33 g/dL (33-37); MEAN CORPUSCULAR VOLUME 88.5 fL (80-94); MONOCYTES # (AUTO) 0.9 K/uL (0.8-1.0); MONOCYTES % (AUTO) 9.5 % (1.7-9.3); NEUTROPHILS # (AUTO) 5.8 K/uL (1.8-7.7); NEUTROPHILS % (AUTO) 64.1 % (42.2-75.2); PLATELET COUNT (AUTO) 237 K/uL (140-450); RED BLOOD CELL COUNT(AUTO) 4.87 MIL/uL (4.20-6.10); RED CELL DISTRIBUTION WIDTH 14.6 % (11.6-13.7); WHITE BLOOD COUNT (AUTO) 9.1 K/uL (4.8-10.8)
[2022-03-21] MEDS: NACL 0.9% 1,000 ML IV SCH (08:20)
[2022-03-21] MEDS: ZINC SULF 220 MG CAP PO SCH (10:28)
[2022-03-21] MEDS: DILTIAZEM 120 MG CAPER PO SCH (10:28)
[2022-03-21] MEDS: DIGOXIN 0.125 MG TAB PO SCH (10:29)
[2022-03-21] MEDS: ATORVASTATIN 20 MG TAB PO SCH (10:31)
[2022-03-21] MEDS: carvediloL 3.125 MG TAB PO SCH (10:31)
[2022-03-21] MEDS: ASCORBIC ACID 500 MG TAB PO SCH (10:32)
[2022-03-21] MEDS: ENALAPRIL 10 MG TAB PO SCH (10:32)
[2022-03-21] MEDS: APIXABAN 2.5 MG TAB PO SCH (10:34)
--- NOTE | 2022-03-21 11:32 | NUR ---
POTENTIAL COVID RELATED SKIN FAILURE DUE TO TISSUE LESS TOLERATE TO PRESSURE, SHEARING AND POSSIBLE ASSOCIATED WITH MICROVASCULAR INJURY AND HYPOXIA -POSITIONING: TURN AND REPOSITION PATIENT Q 2H OR SOONER USE PILLOWS TO KEEP BONY PROMINENCES FROM DIRECT CONTACT WITH SURFACES USE REPOSITIONING WEDGES TO PROVIDE 30-DEGREE ANGLE FOR SIDE LYING POSITIONS OFFLOADING OR FOAM DRESSING TO ALL TUBING TO PREVENT MEDICAL DEVICES RELATED PRESSURE INJURY -RE-EVALUATING AND MANAGING INCONTINENCE MONITOR SKIN CONDITION DURING POSITION CHANGE DO NOT MASSAGE REDNESS, BONY PROMINENCES, DO NOT USE DONUT-TYPE DEVICES FREQUENT OREN-CARE AND PROVIDE BARRIER CREAMS PRN IF SOILING MOISTURE CONTROL BY OFFER BED MCNAMARA/URINAL /ABSORBENT PAD TO WICK AND HOLD MOISTURE. KEEP SKIN DRY AND PROTECT FROM FRICTION -MANAGE FRICTION/SHEAR/MOBILITY KEEP HOB AT THE LOWEST LEVEL OF ELEVATION NO MORE THAN 30 DEGREE UNLESS OTHERWISE CONTRAINDICATED USE LIFT SHEET OR TRANSFER DEVICE TO MOVE PATIENT AND PREVENT LATERAL SHEER. PROTECT HEELS, ELBOWS BONY PROMENANCES WITH SKIN BERRIES OR FOAM DRESSING IF EXPOSED TO FRICTION OFFLOAD BILATERAL HEELS BY PLACING PILLOWS UNDER CALVES AT ALL TIMES, UNLESS OTHERWISE CONTRAINDICATED -PRESSURE REDISTRIBUTION SURFACE THERAPY AMELIE ISOFLEX MATTRESS -NUTRITION: PLEASE FOLLOW RD RECOMMENDATIONS AND OFFER NUTRITION SUPPLEMENTS IF ORDERED. PLEASE CONTACT WOUND CARE NURSE FOR ANY QUESTION AND CHANGE OF WOUND CONDITION
[2022-03-21 12:00] VITALS: BP 153/99
[2022-03-21] MEDS: LEVOFLOXACIN 500 MG/D5W PREMIX 100 ML IV SCH (15:00)
--- NOTE | 2022-03-21 15:26 | NUR ---
03/21/22 RD INITIAL ASSESSMENT COMPLETED PLEASE REFER TO NUTRITION ASSESSMENT UNDER CARE ACTIVITY FOR ESTIMATED NUTRITIONAL NEEDS. 1. RECOMMEND CARDIAC MECHANICAL SOFT DIET TOLERATED 2. MONITOR FLUID RETENTION AND GI SYMPTOMS 3. RD TO FOLLOW-UP 7 DAYS, LOW RISK ANNETTE LUCIANO RD
--- NOTE | 2022-03-21 15:41 | NUR ---
DC PLANNING: CALLED [facility] SPOKE WITH EKATERINA PAULINO STATED THEY DON'T HAVE AND TRANSPORTER TAKING COVID PATIENT, BUT THEY CAN ACCEPT PATIENT. ARRANGED TRANSPORT WITH [facility] NOTIFIED THEM THAT COVID PATIENT. PANEL FLOW MACHINE OPERATOR TIME BETWEEN 6:30 TO 7PM. NOTIFIED ANDREY BUTLER. CM TO FOLLOW
[2022-03-21 16:00] VITALS: BP 144/78
[2022-03-21 16:14] VITALS: BP 144/78
--- NOTE | 2022-03-21 17:29 | NUR ---
DISCHARGE PATIENT IN STABLE CONDITION PER PCP ORDER AFTER PATIENT RETURN FROM CT ABDOMEN COMPLETE. DISCHARGE INSTRUCTION GIVEN, DISCHARGE CONSENT SIGNED, WRIST BAND & TEL. MONITOR REMOVED. REPORT GIVE TO JOSSELYN IN [facility]. PATIENT'S MOTHER CALLED AND INFORMED THAT PATIENT IS STABLE AND WILL TRANSFER BACK TO [facility] BY [facility] NON-EMERGENCY MEDICAL TRANSPORTATION
[2022-04-01] MEDS ORDERED: LAM200 PO (09:27)
== END 2022-03-21 17:30 | DRG 871 ==
LOC: MED 12:52 → MTU 18:04
PROVIDERS: ADMIT Family Medicine; ATTEND Family Medicine
PROC: 05HY33Z Insertion of Infusion Device into Upper Vein, Percutaneous Approach (ICD-10-PCS; principal; 2022-03-16)
DX: A41.9 Sepsis, unspecified organism (principal); N17.0 Acute kidney failure with tubular necrosis; U07.1 COVID-19; I48.20 Chronic atrial fibrillation, unspecified; E44.1 Mild protein-calorie malnutrition; I69.951 Hemiplegia and hemiparesis following unspecified cerebrovascular disease affecting right dominant side; A08.4 Viral intestinal infection, unspecified; K21.9 Gastro-esophageal reflux disease without esophagitis; G40.909 Epilepsy, unspecified, not intractable, without status epilepticus; E83.51 Hypocalcemia; E83.42 Hypomagnesemia; E86.0 Dehydration; E78.5 Hyperlipidemia, unspecified; I11.0 Hypertensive heart disease with heart failure; I50.9 Heart failure, unspecified; Z88.1 Allergy status to other antibiotic agents; Z88.0 Allergy status to penicillin; Z88.8 Allergy status to other drugs, medicaments and biological substances; Z68.29 Body mass index [BMI] 29.0-29.9, adult
CPT/HCPCS: 36415; 71045; 80048; 80053; 81001; 83735; 83880; 85025; 87045; 87070; 87081; 89055; 96372; 97163-GP; 99285; J1644; J1956; J2060; J2270; Q0092; Q9967

== ENCOUNTER 2022-03-22 08:59 | Emergency (ER) | payer OTHER, MEDICAID ==
[~2022-03-22] VITALS: Ht 193 cm; Wt 112.5 kg
[~2022-03-22 08:59] MED LIST changes: +APIX2.5 PO; +ATOR20TA40 PO; +CARV3.122 PO; +DIGO0.1211 PO; +DILT120C95 PO; +ENAL10TA51 PO; +VITC500 PO; +ZINC220C29 PO
--- NOTE | 2022-03-22 08:59 | NUR ---
VIRA DOW VIA GURNEY TO BED 08.
[2022-03-22 09:11] VITALS: BP 112/58
--- NOTE | 2022-03-22 09:20 | NUR ---
Michelle DOW from [facility] for midline removal. Per EMS, pt was D/C from this facility yesterday with a midline still in place. Facility staff requesting for the midline to be removed. Pt has no other complaints upon assessment.
--- NOTE | 2022-03-22 09:25 | NUR ---
Dr. William at bedside for procedure.
--- NOTE | 2022-03-22 09:50 | NUR ---
Patient discharged with v/s stable. Written and verbal after care instructions given and explained. Patient verbalized understanding. Wheelchair assisted to car. All questions addressed prior to discharge. Advised to follow up with PMD.
== END 2022-03-22 09:50 | disposition home or self-care (01) ==
LOC: MED 08:59
DX: Z45.2 Encounter for adjustment and management of vascular access device (principal); F03.90 Unspecified dementia, unspecified severity, without behavioral disturbance, psychotic disturbance, mood disturbance, and anxiety; K21.9 Gastro-esophageal reflux disease without esophagitis; I10 Essential (primary) hypertension; Z79.899 Other long term (current) drug therapy; Z88.0 Allergy status to penicillin; Z88.8 Allergy status to other drugs, medicaments and biological substances; Z88.1 Allergy status to other antibiotic agents; Z86.73 Personal history of transient ischemic attack (TIA), and cerebral infarction without residual deficits
CPT/HCPCS: 99283

== ENCOUNTER 2022-03-27 14:45 | Emergency (ER) | payer OTHER, MEDICAID ==
[~2022-03-27] VITALS: Ht 177.8 cm; Wt 81.6 kg
[2022-03-27 15:00] VITALS: BP 134/5
--- NOTE | 2022-03-27 15:07 | NUR ---
Paola alexander in ED - 03/27/22 at 1508 by CATIE Pt in AMB1 pending bed placement
--- NOTE | 2022-03-27 15:08 | NUR ---
Pt in AMB3 pending bed placement
[2022-03-27] MEDS ORDERED: DICYCLOMINE HCL LIQUID 20 MG, ALUMINUM HYD/MAG/SIMETHICONE 30 ML, LIDOCAINE VISCOUS 2% ... PO ONE ×3 (16:00)
--- NOTE | 2022-03-27 16:12 | NUR ---
[facility] BLS TO ER BED 13
[2022-03-27 16:55] LABS: BASOPHILS # (AUTO) 0.1 K/uL (0.00-0.22); EOSINOPHILS # (AUTO) 0.1 K/uL (0-0.4); EOSINOPHILS % (AUTO) 0.9 % (0.0-4.0); LYMPHOCYTES # (AUTO) 1.7 K/uL (2.0-11.5); LYMPHOCYTES % (AUTO) 13.6 % (20.5-51.1); MEAN CORPUSCULAR HEMOGLOBIN 29 pg (27-31); MEAN CORPUSCULAR HGB CONC 33 g/dL (33-37); MEAN CORPUSCULAR VOLUME 88.4 fL (80-94); MONOCYTES % (AUTO) 7.5 % (1.7-9.3); NEUTROPHILS # (AUTO) 9.9 K/uL (1.8-7.7); PLATELET COUNT (AUTO) 303 K/uL (140-450); RED BLOOD CELL COUNT(AUTO) 5.54 MIL/uL (4.20-6.10); WHITE BLOOD COUNT (AUTO) 12.8 K/uL (4.8-10.8)
[2022-03-27 17:15] LABS: ALBUMIN 3.4 g/dL (3.4-5.0); ANION GAP 12.3 (8-16); CARBON DIOXIDE 30.8 mmol/L (21-32); CREATININE 1.3 mg/dL (0.6-1.3); POTASSIUM 5.1 mmol/L (3.5-5.1); TOTAL BILIRUBIN 0.4 mg/dL (0.0-1.0)
--- NOTE | 2022-03-27 18:34 | NUR ---
PT SOILED HIMSELF. PT CLEANED, PROVIDED NEW DIAPER AND GOWN. ALL NEEDS MET
[2022-03-27 19:00] VITALS: BP 120/63
--- NOTE | 2022-03-27 19:03 | NUR ---
[facility] AT BEDSIDE
--- NOTE | 2022-03-27 19:06 | NUR ---
Patient discharged with v/s stable. Written and verbal after care instructions given and explained. Patient verbalized understanding. Ambulance Transport with to detention. All questions addressed prior to discharge. Advised to follow up with PMD.
--- NOTE | 2022-03-27 19:09 | NUR ---
ATTEMPTED TO CALL REPORT TO [facility] REPORT X2. NO ANSWER
[2022-04-01] MEDS ORDERED: LAM200 PO (09:27)
== END 2022-03-27 19:06 | disposition home or self-care (01) ==
LOC: MED 14:45
DX: R10.13 Epigastric pain (principal); I50.9 Heart failure, unspecified; I11.0 Hypertensive heart disease with heart failure; F03.90 Unspecified dementia, unspecified severity, without behavioral disturbance, psychotic disturbance, mood disturbance, and anxiety; K21.9 Gastro-esophageal reflux disease without esophagitis; E78.5 Hyperlipidemia, unspecified; Z86.73 Personal history of transient ischemic attack (TIA), and cerebral infarction without residual deficits; Z88.0 Allergy status to penicillin; Z88.8 Allergy status to other drugs, medicaments and biological substances; Z79.899 Other long term (current) drug therapy; Z98.890 Other specified postprocedural states
CPT/HCPCS: 36415; 80053; 85025; 99284

== ENCOUNTER 2022-06-03 21:09 | Inpatient (IN) | payer OTHER, MEDICAID ==
[~2022-06-03] VITALS: Ht 182.9 cm; Wt 124.7 kg
[2022-06-03 21:09] VITALS: BP 138/80
[~2022-06-03 21:09] MED LIST changes: -HYDR-5080 PO; +LAM200 PO
--- NOTE | 2022-06-03 21:09 | NUR ---
BIBA TO BED #6
[2022-06-03] MEDS ORDERED: NACL 0.9% 1,000 ML IV ONE (21:15)
[2022-06-03] MEDS ORDERED: MORPHINE SULFATE 4 MG/ML SYR IVP ONE (21:15)
--- NOTE | 2022-06-03 22:06 | NUR ---
Patient being evaluated by physician at bedside.
[2022-06-03 22:22] LABS: BASOPHILS % (AUTO) 0.3 % (0.0-2.0); EOSINOPHILS % (AUTO) 0.3 % (0.0-4.0); HEMATOCRIT 40.3 % (36-52); HEMOGLOBIN 13.5 g/dL (12.0-18.0); LYMPHOCYTES # (AUTO) 0.9 K/uL (2.0-11.5); LYMPHOCYTES % (AUTO) 9.1 % (20.5-51.1); MEAN CORPUSCULAR HEMOGLOBIN 30 pg (27-31); MEAN CORPUSCULAR HGB CONC 33 g/dL (33-37); MEAN CORPUSCULAR VOLUME 88.2 fL (80-94); MONOCYTES # (AUTO) 0.7 K/uL (0.8-1.0); MONOCYTES % (AUTO) 7.2 % (1.7-9.3); NEUTROPHILS # (AUTO) 8.3 K/uL (1.8-7.7); NEUTROPHILS % (AUTO) 83.1 % (42.2-75.2); PLATELET COUNT (AUTO) 223 K/uL (140-450); RED BLOOD CELL COUNT(AUTO) 4.57 MIL/uL (4.20-6.10); RED CELL DISTRIBUTION WIDTH 14.7 % (11.6-13.7)
--- NOTE | 2022-06-03 22:41 | NUR ---
66YR OLD MALE BIB EMS C/O LLQ PAIN XTODAY. +DIARRHEA -N/V -FEVER. DENIES CP . IS SOB . 2L NC PLACED SPO2 95%. PAIN LEVEL 10/10 SHARP LLQ ABD . PAIN STARTED TODAY WITH DIARHERRA. PT IS GUARDING LAYING ON RIGHT SIDE. CVA IN PAST R SIDED WEAKNESS. PT IS A&OX3. ON BEDSIDE CLERK TYPIST. SKIN WARM AND DRY. RESP EVEN AND UNLABORED. PCN CARBAPENEMS CEPHALOSPORINS HTN SZ AFIB DEMTENIA GERD CVA
[2022-06-03 22:59] LABS: APPEARANCE,URINE CLEAR (CLEAR); BILIRUBIN,URINE NEGATIVE (NEGATIVE); BLOOD, URINE NEGATIVE (NEGATIVE); COLOR,URINE YELLOW (YELLOW); LEUKOCYTE ESTERASE ,URINE NEGATIVE (NEGATIVE); NITRITE, URINE NEGATIVE (NEGATIVE); UGLUCOSE NEGATIVE (NEGATIVE)
[2022-06-03 23:38] LABS: CHLORIDE 106 mmol/L (98-107); CREATININE 0.9 mg/dL (0.6-1.3); GFR ARICAN-AMERICAN 108 mL/min (>90); GLUCOSE 168 mg/dL (74-106); SODIUM SERUM 142 mmol/L (136-145); UREA NITROGEN, BLOOD 22 mg/dL (7-18)
[2022-06-03 23:54] LABS: ALBUMIN 3.9 g/dL (3.4-5.0); ASPARTATE AMINOTRANSFERASE 31 U/L (15-37); TOTAL BILIRUBIN 0.5 mg/dL (0.0-1.0)
[2022-06-03 23:55] LABS: LIPASE 62 U/L (73-393)
--- NOTE | 2022-06-04 00:05 | NUR ---
COVID SWAB COLLECTED AND SENT TO LAB
--- NOTE | 2022-06-04 00:43 | NUR ---
PT TO CT VIA ECHO
--- NOTE | 2022-06-04 01:04 | NUR ---
PT BACK FROM CT , ON BEDSIDE MENTAL MEASUREMENTS TEACHER. 09/29 PAIN
[2022-06-04] MEDS ORDERED: MORPHINE SULFATE 4 MG/ML SYR IVP ONE (02:40)
--- NOTE | 2022-06-04 03:48 | NUR ---
PT ALSEEP WITH HOB ELEVATED. ON BEDSIDE PATIENT SAFETY COORDINATOR. PENDING CT ABD RESULTS. PAIN LEVEL 5/10 VS WNL
--- NOTE | 2022-06-04 05:49 | NUR ---
MED RECONCILE AND BELONGINGS LIST COMPLETED
--- NOTE | 2022-06-04 06:33 | NUR ---
RECIEVED MED ORDER FOR PAIN DR ANNE
[2022-06-04] MEDS: KETOROLAC 15 MG/ML VIAL IVP SCH ×2 (06:41→06:51)
--- NOTE | 2022-06-04 07:16 | NUR ---
Report received from IVELISSE Malcolm for transfer of care.
--- NOTE | 2022-06-04 07:38 | NUR ---
PT MOVED TO TELEMETRY FLOOR AT THIS TIME VIA ECHO
--- NOTE | 2022-06-04 07:41 | NUR ---
Patient will be admitted to care of OMID SCHMIDT. Admitted to TELEMETRY. Will go to room 123A. Belongings list completed. Report to ZACHERY BUTLER FROM [facility].
--- NOTE | 2022-06-04 07:42 | NUR ---
The patient's care was reviewed and supervised by Juliet Ospina, RN, RN.
[2022-06-04] MEDS: NACL 0.9% 1,000 ML IV SCH ×3 (07:50→23:50)
[2022-06-04] MEDS ORDERED: DOCUSATE SODIUM 100 MG GELCAP PO PRN (07:50)
[2022-06-04] MEDS ORDERED: ACETAMINOPHEN 325 MG TAB PO PRN (07:50)
[2022-06-04] MEDS ORDERED: POTASSIUM CHLORIDE 10 MEQ TABER PO PRN (07:50)
[2022-06-04] MEDS ORDERED: guaiFENesin DM 200/20 MG-10 ML 10 ML UDC PO PRN (07:50)
[2022-06-04] MEDS ORDERED: NACL 0.9% 3,000 ML IV SCH (07:55)
--- NOTE | 2022-06-04 08:50 | NUR ---
PATIENT HAS BEEN SCREENED AND CATEGORIZED MODERATE NUTRITION RISK. PATIENT WILL BE SEEN WITHIN 3-5 DAYS OF ADMISSION. REVIEWED BY ANNETTE LUCIANO RD
[2022-06-04 09:11] LABS: CHOL/HDL RATIO 2.5 (1-4.5); FREE T4 (FREE THYROXINE) 1.03 ng/dL (0.76-1.46); PHOSPHORUS 2.7 mg/dL (2.5-4.9); THYROID STIMULATING HORMONE 0.85 uIU/mL (0.34-3.74)
[2022-06-04] MEDS: PANTOPRAZOLE 40 MG TABEC PO SCH (09:41)
[2022-06-04 09:52] LABS: PROTHROMBIN TIME 11.3 secs (10.8-13.4)
[2022-06-04 12:00] VITALS: BP 113/71
[2022-06-04 16:00] VITALS: BP 113/71
--- NOTE | 2022-06-04 16:46 | NUR ---
06/04/2022 0800: RECEIVED PT FROM ED. PT RESTING IN BED. NO GUARDING OR GRIMACING. NO ACUTE DISTRESS NOTED AT THIS TIME. [id number].
[2022-06-04] MEDS: bisacodyL 10 MG SUPP RC PRN (16:53)
[2022-06-04 20:00] VITALS: BP 152/93
[2022-06-04] MEDS: SODIUM PHOSPHATE 118 ML ENEM RC PRN (21:52)
--- NOTE | 2022-06-04 21:52 | NUR ---
ADMINISTERED FLEET ENEMA, PT HAS 1X MODERATE TO LARGE FORMED STOOL THEN LOOSE ONE.
--- NOTE | 2022-06-04 23:13 | NUR ---
PT HAD MODERATE BM WITH MIXTURE OF WATERY AND SOFT STOOL, PERINEAL CARE DONE, PT OWN BLANKET SOILED WITH STOOL, STATED OK TO THROW AWAY THE BLANKET, LUKE NORTON MADE AWARE.
--- NOTE | 2022-06-05 00:37 | NUR ---
PT HAD SMALL SOFT BM, PERINEAL CARE DONE.
[2022-06-05] MEDS: HYDROcodone/APAP 7.5/325 MG 1 TAB PO PRN ×3 (02:50→13:09)
--- NOTE | 2022-06-05 02:50 | NUR ---
PT COMPLAINTS OF ABDOMINAL PAIN 09/29, PAIN MEDICATION NORCO 7.5 ADMINISTERED ORDER.
[2022-06-05 04:00] VITALS: BP 120/69
--- NOTE | 2022-06-05 04:20 | NUR ---
PT HAS SMALL SOFT FORMED STOOL.
[2022-06-05 05:27] LABS: BASOPHILS # (AUTO) 0.1 K/uL (0.00-0.22); BASOPHILS % (AUTO) 0.7 % (0.0-2.0); EOSINOPHILS % (AUTO) 0.4 % (0.0-4.0); HEMATOCRIT 39.3 % (36-52); LYMPHOCYTES # (AUTO) 1.4 K/uL (2.0-11.5); MEAN CORPUSCULAR HEMOGLOBIN 29 pg (27-31); MEAN CORPUSCULAR HGB CONC 33 g/dL (33-37); MONOCYTES % (AUTO) 8.4 % (1.7-9.3); NEUTROPHILS # (AUTO) 8.9 K/uL (1.8-7.7); NEUTROPHILS % (AUTO) 78.5 % (42.2-75.2); PLATELET COUNT (AUTO) 239 K/uL (140-450); RED BLOOD CELL COUNT(AUTO) 4.46 MIL/uL (4.20-6.10); RED CELL DISTRIBUTION WIDTH 14.9 % (11.6-13.7); WHITE BLOOD COUNT (AUTO) 11.3 K/uL (4.8-10.8)
[2022-06-05] MEDS: NACL 0.9% 1,000 ML IV SCH ×2 (05:36→15:50)
[2022-06-05 06:38] LABS: ANION GAP 14.1 (8-16); CARBON DIOXIDE 23.5 mmol/L (21-32); CREATININE 0.9 mg/dL (0.6-1.3); POTASSIUM 3.6 mmol/L (3.5-5.1)
--- NOTE | 2022-06-05 07:30 | NUR ---
RECIEVED PATIENT FROM ACCOUNT SUPERVISOR NURSE.ALL SAFETY MAESURES IN PLACE,VITALS ARE STABLE.POC DISCUSSED.WILL CONTINUE TO MONITOR.
[2022-06-05 08:00] VITALS: BP 148/94
[2022-06-05] MEDS: PANTOPRAZOLE 40 MG TABEC PO SCH (08:21)
[2022-06-05] MEDS: bisacodyL 10 MG SUPP RC PRN (08:22)
--- NOTE | 2022-06-05 13:14 | NUR ---
SCANT AMOUNT OF STOOL NOTED.COMPLAINS OF PAIN NOTED.GAVE PRN MEDS.MILD REDNESS OVER THE ANUS NOTED.PRN ENEMA ADMINISTERED.WILL CONTINUE TO MONITOR.
--- NOTE | 2022-06-05 18:54 | NUR ---
TRIED FEEDING HIM,REFUSING TO EAT,TOLERATING LIQUID FOOD.NOTIFIED .
--- NOTE | 2022-06-05 19:30 | NUR ---
RECEIVED REPORT FROM DAY SHIFT NURSE JENNY FOR CONTINUITY OF CARE. PATIENT IS A&O X2. PATIENT IS ON ROOM AIR, BREATHING IS NORMAL WITH SYMMETRICAL RISE AND FALL OF CHEST. IV IS A 22G RGA, RUNNING NS 125. PATIENT IS LYING SEMI FOWLERS IN BED. BED IS IN LOWEST POSITION, WHEELS LOCKED, CALL LIGHT IN PLACE. WILL CONTINUE TO OBSERVE PATIENT.
[2022-06-05 20:00] VITALS: BP 145/83
[2022-06-05] MEDS ORDERED: bisacodyL 10 MG SUPP RC ONE (22:15)
--- NOTE | 2022-06-05 23:27 | NUR ---
PATIENT WAS COMPLAINING OF SEVERE ABDOMINAL PAIN STATING THAT HE IS NOT ABLE TO BURP OR PASS GAS. RECOMMENDED TO PATIENT THAT HE TRY MOVING HIS LEGS AROUND A BIT TO HELP GET THE BOWELS MOVING, PATIENT STATED THAT HE CAN'T. MESSAGED DIRECTOR OF IN SERVICE EDUCATION PHYSICIAN (DR. TONI ANNE), REQUESTING GASX TO HELP PATIENT RELIEVE GAS. DR. ANNE MESSAGED BACK ORDERING A KUB X-RAY TO BE DONE. X-RAY WAS DONE; MESSAGED DR. ANNE WITH RESULTS. RESULTS WERE: "Moderate impacted stool in rectosigmoid colon. Prominent gaseous distention of descending colon." DR. ANNE ORDERS WERE TO GIVE ANOTHER DULCOLAX SUPPOSITORY TONIGHT. PUT ORDER IN AND ADMINISTERED SUPPOSITORY TO PATIENT. WILL CONTINUE TO OBSERVE PATIENT.
[2022-06-06] MEDS: NACL 0.9% 1,000 ML IV SCH ×2 (00:15→08:06)
[2022-06-06] MEDS: ZOLPIDEM 5 MG TAB PO PRN (01:36)
--- NOTE | 2022-06-06 01:38 | NUR ---
PATIENT HAS BEEN HAVING MULTIPLE BOWEL MOVEMENTS. BM IS SCANT SCANT AMOUNT, LIGHT BROWN IN COLOR. PATIENT HAS BEEN CHANGED SIX TIMES AND IS UNABLE TO SLEEP. PATIENT STATES THAT HE IS NOT IN ANY PAIN AND DOES NOT WANT A PAIN MEDICATION. I OFFERED PATIENT A SLEEP MEDICATION, AND PATIENT SAID HE WOULD LIKE TO HAVE IT. ADMINISTERED AMBIEN TO PATIENT. PATIENT TOLERATED WELL WITHOUT ANY DIFFICULTY SWALLOWING. WILL CONTINUE TO OBSERVE PATIENT.
[2022-06-06 04:00] VITALS: BP 149/81
[2022-06-06 05:27] LABS: BASOPHILS # (AUTO) 0.1 K/uL (0.00-0.22); BASOPHILS % (AUTO) 0.3 % (0.0-2.0); EOSINOPHILS # (AUTO) 0.4 K/uL (0-0.4); EOSINOPHILS % (AUTO) 1.3 % (0.0-4.0); HEMATOCRIT 41.4 % (36-52); HEMOGLOBIN 13.6 g/dL (12.0-18.0); LYMPHOCYTES # (AUTO) 0.8 K/uL (2.0-11.5); LYMPHOCYTES % (AUTO) 2.8 % (20.5-51.1); MEAN CORPUSCULAR HEMOGLOBIN 29 pg (27-31); MEAN CORPUSCULAR HGB CONC 33 g/dL (33-37); MEAN CORPUSCULAR VOLUME 88.8 fL (80-94); MONOCYTES # (AUTO) 1.7 K/uL (0.8-1.0); MONOCYTES % (AUTO) 6.1 % (1.7-9.3); NEUTROPHILS # (AUTO) 24.7 K/uL (1.8-7.7); NEUTROPHILS % (AUTO) 89.5 % (42.2-75.2); PLATELET COUNT (AUTO) 281 K/uL (140-450); RED BLOOD CELL COUNT(AUTO) 4.66 MIL/uL (4.20-6.10)
[2022-06-06 05:30] LABS: WHITE BLOOD COUNT (AUTO) 27.6 K/uL (4.8-10.8)
--- NOTE | 2022-06-06 05:40 | NUR ---
PATIENT HAS SLEPT THROUGH OUT THE NIGHT, BUT REQUIRED CHANGING AGAIN AT 0400; PATIENT HAD A BM TWO MORE TIMES AFTER BEING CHANGED AT 0400. PATIENT HAS HAD 8 BM. LAB CALLED AT 0530 FOR CRITICAL LAB; WBC INCREASED TO 27.6 (PREVIOUSLY 11.3). DR. ANNE WAS MESSAGED AT 0533; PENDING RESPONSE. PATIENT IS SLEEPING AGAIN; WILL CONTINUE TO OBSERVE PATIENT.
[2022-06-06 06:40] LABS: CARBON DIOXIDE 22.4 mmol/L (21-32); CREATININE 1.2 mg/dL (0.6-1.3); POTASSIUM 3.4 mmol/L (3.5-5.1)
[2022-06-06] MEDS ORDERED: LACTULOSE 20 GM/30 ML UDC PO SCH (06:40)
--- NOTE | 2022-06-06 06:46 | NUR ---
DR. ANNE RESPONDED TO MESSAGE. DR. ANNE ORDERED LEVAQUIN 750MG QD IV FOR CRITICAL LAB OF WBC. DR. ANNE ALSO ORDERED BURGESS CATHETER INSERTION AND LACTULOSE 30ML TO BE GIVEN, STATING THAT "IF THIS DOESN'T WORK, WE HAVE TO GET SURGEON." ORDERS WERE PUT IN.
[2022-06-06] MEDS: LEVOFLOXACIN 750 MG/D5W PREMIX 150 ML IV SCH (06:56)
--- NOTE | 2022-06-06 07:46 | NUR ---
ENDORSED TO DAY SHIFT NURSE ADÁN FOR CONTINUITY OF CARE. PATIENT IS STABLE.
--- NOTE | 2022-06-06 07:48 | NUR ---
RECEIVED REPORT FROM LEASING REPRESENTATIVE NURSE, WIL, FOR CONTINUITY OF CARE. PT IN BED AT THIS TIME. RESPIRATIONS ARE EVEN AND UNLABORED ON ROOM AIR. NO SIGNS OF DISTRESS NOTED. NO S/S OF PAIN OR DISCOMFORT. PER LEASING REPRESENTATIVE, BURGESS CATHETER INSERTION ORDERED, DUE TO PT UNABLE TO URINATE. LEASING REPRESENTATIVE UNABLE TO PLACE BURGESS, ENDORSED TO THIS NURSE. LEASING REPRESENTATIVE ALSO INFORMED ME THAT PT HAS NOT BAD A NORMAL BOWEL MOVEMENT, ONLY SMALL AMOUNTS OF LOSE STOOL. ON ASSESSMENT, NOTED THAT PT ABD IS DISTENDED AND HARD TO PALPATION. MD MADE AWARE.
[2022-06-06 08:00] VITALS: BP 124/73
--- NOTE | 2022-06-06 08:00 | NUR ---
Patient's Plan of Care was discussed and reviewed with IVELISSE: HOANG
[2022-06-06] MEDS ORDERED: DEXT 5% /NACL 0.9% 1,000 ML IV SCH (08:40)
[2022-06-06] MEDS: PANTOPRAZOLE 40 MG TABEC PO SCH (08:49)
--- NOTE | 2022-06-06 08:49 | NUR ---
MEDICATION, PROTONIX PO, HELD DUE TO PT HAVING 2X EPISODE OF EMESIS. PT IS NPO AT THIS TIME PER MD ORDER.
[2022-06-06] MEDS: POTASSIUM CHL 20 MEQ/D5-1/2NS 1,000 ML IV SCH (12:26)
[2022-06-06] MEDS: metroNIDAZOLE 500 MG/NS PREMIX 100 ML IV SCH ×2 (13:00→21:30)
--- NOTE | 2022-06-06 13:00 | NUR ---
DR BENTLEY HERE TO SEE PT. NEW ORDERS PLACED. ORDER FOR MINERAL OIL ENEMA. PER DR BENTLEY, CONTINUE WITH LAXATIVES AND ENEMA. IF STILL NO SOLID BM, INFORM DR ANNE TO CONSULT SURGEON FOR MECHANICAL DISIMPACTION WITH ANESTHESIA. DR ANNE MADE AWARE.
[2022-06-06] MEDS: POLYETHYLENE GLYCOL 17 GM/PKT PO SCH ×3 (13:14→21:47)
[2022-06-06] MEDS: SENNA 8.6 MG TAB PO SCH ×2 (13:15→17:59)
--- NOTE | 2022-06-06 14:12 | NUR ---
BURGESS CATHETER PLACED, DRAINING DARK MEHRAN URINE. PT TOLERATED WELL. WILL CONTINUE TO MONITOR.
--- NOTE | 2022-06-06 14:20 | NUR ---
RECEIVED CALL FROM RADIOLOGY DEPT. WAS INFORMED THAT PER RADIOLOGIST, THEY PREFER STAFF TO ATTEMPT ENEMA BEFORE RADIOLOGY ATTEMPTED ORDERED BARIUM ENEMA.
--- NOTE | 2022-06-06 15:20 | NUR ---
ADMINISTERED MINERAL OIL ENEMA. PT TOLERATED WELL.
[2022-06-06 16:00] VITALS: BP 139/88
--- NOTE | 2022-06-06 16:20 | NUR ---
DC PLANNING ASSESSMENT COMPLETE SEE ASSESSMENT FOR DETAILS PER DON MR CUEVAS, PT IS UNABLE TO RETURN TO [facility] LEVEL OF CARE HAS SIGNIFICANTLY INCREASED AND MR UNABLE TO ACCOMODATE PTS NEEDS. SW ENDORSED TO FOR PLACEMENT. Addendum: 06/06/22 at 1621 by Jared HAYS Amended: Links added. Addendum: 06/19/22 at 1652 by MARIANA BLOOM NICK CADET RECEIVED ORDER FOR DISCHARGE BACK TO [facility]. SPOKE WITH JEREMY AT [facility] [place] ACCEPTED BACK TO [address] [facility] PT WILL BE GOING TO ROOM 41-C UNDER THE CARE OF ECHO GROVE TRANSPORTATION SET UP WITH ASHWIN AT [facility] WITH A SECURITY THREAT ANALYST TIME AT [id number]. NURSE NUÑEZ AND SISTER GARRETT AWARE OF THE ABOVE INFORMATION. Addendum: 06/20/22 at 1206 by MARIANA BLOOM NICK CADET [id number] CALLED SISTER GARRETT BUT WAS UNABLE TO GET A HOLD OF HER AND THERE WAS NO OPTION TO LEAVE VOICE MAIL. SO I SOPKE WITH MOTHER JUSTO TO INFORM HER OF ACCEPTANCE AND TRANSPORT DETAILS
--- NOTE | 2022-06-06 17:13 | NUR ---
PT HAD AN EPISODE OF LOOSE STOOL. NO FORMED STOOL.
[2022-06-06] MEDS: LUBIPROSTONE 24 MCG CAPSULE PO SCH (17:59)
--- NOTE | 2022-06-06 19:27 | NUR ---
ENDORSED PT TO SHALE MINER NURSECLARICE, FOR CONTINUITY OF CARE. PT IS STABLE.
--- NOTE | 2022-06-06 19:28 | NUR ---
RECEIVED REPORT FROM DAY SHIFT NURSE ADÁN FOR CONTINUITY OF CARE. PT AWAKE IN BED. ON RA, WITH NO DISTRESS NOTED. DENIES PAIN. ABDOMEN DISTENDED AND HARD TO PALPATION. PT ON NPO, PT AWARE AND NPO SIGN IN PLACE. BURGESS CATHETER IN PLACE DRAINING LIGHT RED URINE. IV SITE ON RFA INFUSING D5 1/2 NS IN 20 MEQ KCL AT 80ML/HR. SKIN INTACT, WARM AND DRY TO TOUCH. CALL LIGHT WITHIN REACH. SAFETY PRECAUTIONS IN PLACE.
[2022-06-06 20:00] VITALS: BP 99/64
--- NOTE | 2022-06-06 21:30 | NUR ---
SCHEDULED IV MED ADMINISTERED BY LUKE MORRISSEY. NO ADVERSE REACTION NOTED.
--- NOTE | 2022-06-06 22:04 | NUR ---
PT HAD 2 EPISODES OF VOMITING DARK COLORED EMESIS. PT CLOSELY MONITORED.
[2022-06-07] MEDS: POTASSIUM CHL 20 MEQ/D5-1/2NS 1,000 ML IV SCH ×3 (00:20→19:35)
[2022-06-07] MEDS: ZOLPIDEM 5 MG TAB PO PRN (00:49)
--- NOTE | 2022-06-07 00:50 | NUR ---
PT HAD ANOTHER EPISODE OF DARK COLORED EMESIS 200CC. PT HAD LOOSE BM. CLEANED PT WITH UNDERWATER PHOTOGRAPHER. PT SAID HE NEED SOMETHING TO HELP HIM SLEEP. PRN MED FOR SLEEP GIVEN.
[2022-06-07 04:00] VITALS: BP 126/78
[2022-06-07] MEDS: metroNIDAZOLE 500 MG/NS PREMIX 100 ML IV SCH ×3 (04:10→21:06)
--- NOTE | 2022-06-07 05:14 | NUR ---
PT HAD DARK COLORED EMESIS 200CC. DID MORNING CARE. PT TOLERATED WELL. PT REMAINED CLEAN AND DRY.
[2022-06-07 05:24] LABS: BASOPHILS % (AUTO) 0.1 % (0.0-2.0); HEMATOCRIT 40.4 % (36-52); HEMOGLOBIN 13.4 g/dL (12.0-18.0); LYMPHOCYTES # (AUTO) 0.9 K/uL (2.0-11.5); LYMPHOCYTES % (AUTO) 3.9 % (20.5-51.1); MEAN CORPUSCULAR HEMOGLOBIN 29 pg (27-31); MEAN CORPUSCULAR HGB CONC 33 g/dL (33-37); MEAN CORPUSCULAR VOLUME 87.5 fL (80-94); MONOCYTES # (AUTO) 2.2 K/uL (0.8-1.0); MONOCYTES % (AUTO) 9.9 % (1.7-9.3); NEUTROPHILS # (AUTO) 18.9 K/uL (1.8-7.7); NEUTROPHILS % (AUTO) 86.1 % (42.2-75.2); PLATELET COUNT (AUTO) 257 K/uL (140-450); RED BLOOD CELL COUNT(AUTO) 4.62 MIL/uL (4.20-6.10); RED CELL DISTRIBUTION WIDTH 15.3 % (11.6-13.7)
[2022-06-07] MEDS: LEVOFLOXACIN 750 MG/D5W PREMIX 150 ML IV SCH (05:42)
--- NOTE | 2022-06-07 06:10 | NUR ---
PATIENT HAS A MEDICAL POA HIS NIECE: DULCE MARIA EDMONDS,
[2022-06-07 06:12] LABS: ANION GAP 14.1 (8-16); CARBON DIOXIDE 22.4 mmol/L (21-32); POTASSIUM 3.5 mmol/L (3.5-5.1)
[2022-06-07 06:13] LABS: CREATININE 1.3 mg/dL (0.6-1.3)
--- NOTE | 2022-06-07 07:42 | NUR ---
GAVE BEDSIDE REPORT TO DAY SHIFT NURSE JEANA FOR CONTINUITY OF CARE. ALL NEEDS MET THROUGHOUT SHIFT. PT IS STABLE.
--- NOTE | 2022-06-07 07:54 | NUR ---
GOT REPORT FROM THE NIGHT NURSE, PT AWAKE DISCUSSED POC NO SOB, [id number]
[2022-06-07] MEDS: SENNA 8.6 MG TAB PO SCH ×2 (08:51→12:40)
[2022-06-07] MEDS: PANTOPRAZOLE 40 MG TABEC PO SCH (08:51)
[2022-06-07] MEDS: LUBIPROSTONE 24 MCG CAPSULE PO SCH (08:51)
[2022-06-07] MEDS: POLYETHYLENE GLYCOL 17 GM/PKT PO SCH ×2 (08:52→12:40)
[2022-06-07] MEDS: ONDANSETRON 4 MG/2 ML VIAL IM/IVP PRN ×2 (09:06→15:05)
[2022-06-07] MEDS ORDERED: DILTIAZEM 25 MG/5 ML VIAL IVP ONE (10:55)
[2022-06-07] MEDS ORDERED: DILTIAZEM 125 MG in DEXTROSE 5% 100 ML IV SCH (10:55)
[2022-06-07] MEDS ORDERED: DILTIAZEM 25 MG/5 ML VIAL IVP SCH (11:00)
--- NOTE | 2022-06-07 11:12 | NUR ---
Received report from LUKE Delacruz. Received pt alert and oriented x2. On O2@3L/min via nasal cannula. A. Fib on monitor. Bowel sounds hypoactive. Cassidy catheter intact and draining to gravity noted with hematuria. Peripheral IV 22 gauge on right forearm intact and patent infusing D51/2NSwith KCl 20mEq @80ml/hr. Safety precautions in place.
--- NOTE | 2022-06-07 11:31 | NUR ---
PT TRANSFERRED TO ICU AFTER CALLING RAPID RESPONSE FOR SOB, HR 150 UNCONTROLLED [employer]. REPORT GIVEN THE ICU NURSE.[id number]
[2022-06-07] MEDS ORDERED: SIMETH PO PRN (11:40)
[2022-06-07] MEDS ORDERED: HYDROcodone/APAP 5/325 MG 1 TAB TAB PO PRN (11:40)
[2022-06-07] MEDS ORDERED: ENALAPRIL 10 MG TAB PO SCH (11:40)
[2022-06-07] MEDS ORDERED: DOCUSATE SODIUM 100 MG GELCAP PO PRN (11:40)
[2022-06-07] MEDS ORDERED: DILTIAZEM 120 MG CAPER PO SCH (11:40)
[2022-06-07] MEDS ORDERED: MAG HYDROX PO PRN (11:40)
[2022-06-07] MEDS ORDERED: AL HYDROX PO PRN (11:40)
[2022-06-07] MEDS ORDERED: IBUPROFEN 600 MG TAB PO PRN (11:40)
[2022-06-07] MEDS ORDERED: DIGOXIN 0.125 MG TAB PO SCH (11:40)
[2022-06-07] MEDS ORDERED: DICLOFENAC TOP PRN (11:40)
[2022-06-07] MEDS ORDERED: carvediloL 3.125 MG TAB PO SCH (11:40)
[2022-06-07] MEDS ORDERED: APIXABAN 2.5 MG TAB PO SCH (11:40)
--- NOTE | 2022-06-07 11:44 | NUR ---
Spoke to Dr. Day regarding POLST and vital signs. Per Dr. Day, hold off on cardizem drip and pt to start home po meds.
[2022-06-07 12:00] VITALS: BP 126/62
[2022-06-07] MEDS ORDERED: ALUMINUM HYD/MAG/SIMETHICONE 30 ML UDC PO PRN (12:00)
[2022-06-07] MEDS: SODIUM PHOSPHATE 118 ML ENEM RC PRN (12:41)
[2022-06-07 14:00] VITALS: BP 152/69
--- NOTE | 2022-06-07 15:51 | NUR ---
Informed Dr. Day regarding pt with A. Fib with RVR and emesis. Pt to start cardizem drip and discontinue cardizem po.
[2022-06-07 16:00] VITALS: BP 116/69
--- NOTE | 2022-06-07 16:05 | NUR ---
Received phone call from radiologist Darrian Vazquez and reported pt has bowel perforation. Dr. Day made aware and will contact Dr. Olivarez.
--- NOTE | 2022-06-07 16:42 | NUR ---
PHYSICAL THERAPY NOTE: ATTEMPTED TO SEE PATIENT FOR PHYSICAL THERAPY EVALUATION HOWEVER PATIENT NOT APPROPRIATE AT THIS TIME; IZZY AND IS NOW ICU STATUS. SEEN WITH RN ATTEMPTING TO PLACE NG TUBE. CONTINUOUS VOMITING EPISODES AND HR ELEVATED 160s. WILL FOLLOW UP WHEN PATIENT MORE APPROPRIATE.
--- NOTE | 2022-06-07 17:10 | NUR ---
Inserted NG-tube on left nare per Dr. Manzano ordered. For CXR for placement.
--- NOTE | 2022-06-07 17:40 | NUR ---
CXR done at bedside.
--- NOTE | 2022-06-07 17:56 | NUR ---
Dr. Parikh at bedside examining patient. New order for Amiodarone drip.
[2022-06-07 18:00] VITALS: BP 116/64
--- NOTE | 2022-06-07 18:00 | NUR ---
NG-tube placed on low intermittent suction.
[2022-06-07] MEDS ORDERED: NOREPINEPHRINE 4 MG in DEXTROSE 5% 250 ML IV PRN (18:30)
[2022-06-07] MEDS ORDERED: AMIODARONE 150 MG in DEXTROSE 5% 100 ML IV SCH (18:30)
--- NOTE | 2022-06-07 19:15 | NUR ---
Dr. Olivarez on phone speaking to patient regarding plan for surgery today. Dr. Olivarez to call pt's mom.
--- NOTE | 2022-06-07 19:35 | NUR ---
Endorsed to speech therapist early intervention nurse Yuliet for continuity of care. Endorsed that pt to go to surgery at 2000 tonight and consents need to be signed for surgery and PICC line insertion. Endorsed pt to be started on Amiodarone drip.
--- NOTE | 2022-06-07 19:40 | NUR ---
TRANSFER OF CARE FROM DAY SHIFT, REPORT RECEIVED FROM SID Sandoval RN PATIENT IS PENDING LAPAROTOMY WITH POSSIBLE BOWEL RESECTION, POSSIBLE OSTOMY. PATIENT IS AWAKE, ALERT AND ORIENTED X2, SITTING UP IN BED WATCHING TV VITALS AT START OF SHIFT: 97.2F, HR = 125, O2 = 96%, R = 24, BP = 102/82
[2022-06-07] MEDS ORDERED: LIDOCAINE 2% 1000 MG/50 ML VIAL INJ ONE (19:57)
[2022-06-07 20:00] VITALS: BP 90/62
[2022-06-07] MEDS ORDERED: BUPIVACAINE-MPF/EPI 0.25% 10 ML VIAL INJ ONE (20:06)
[2022-06-07] MEDS: AMIODARONE 450 MG in DEXTROSE 5% 250 ML IV SCH (20:30)
--- NOTE | 2022-06-07 21:30 | NUR ---
OR TEAM AT BEDSIDE PREPARING PATIENT FOR TRANSFER TO SURGERY
[2022-06-07] MEDS ORDERED: AMIODARONE 150 MG/3 ML VIAL IV ONE (22:00)
[2022-06-07] MEDS ORDERED: fentaNYL citrate 0.05 MG/ML - 50mL vial IV ONE (22:00)
[2022-06-07] MEDS ORDERED: SEVOFLURANE 250 ML BTL INH ONE (22:00)
[2022-06-07] MEDS ORDERED: PHENYLEPHRINE 10 MG/ML VIAL ONE ×2 (22:00→22:45)
[2022-06-07] MEDS ORDERED: PROPOFOL 200 MG/20 ML VIAL IV ONE ×2 (22:00→22:45)
[2022-06-07] MEDS ORDERED: ROCURONIUM 50 MG/5 ML VIAL IV ONE ×3 (22:00→23:01)
[2022-06-07] MEDS ORDERED: DEXAMETHASONE 4 MG/ML VIAL ONE ×2 (22:00→22:45)
[2022-06-07] MEDS ORDERED: MIDAZOLAM 2 MG/2 ML VIAL ONE (22:00)
--- NOTE | 2022-06-07 22:00 | NUR ---
PATIENT LEFT VIA GURNEY IN STABLE CONDITION TO OR; PATIENT TO HAVE LAPAROTOMY, POSSIBLE BOWEL RESECTION, POSSIBLE OSTOMY.
[2022-06-07] MEDS ORDERED: SUCCINYLCHOLINE CHLORIDE 200 MG/10 ML VIAL IVP ONE (22:45)
[2022-06-07] MEDS ORDERED: fentaNYL citrate 0.05 MG/ML VIAL ONE (22:47)
[2022-06-07] MEDS ORDERED: HYDROmorphone PFS 2 MG/ML SYR ONE (23:25)
[2022-06-08] VITALS (27 sets, daily range): BP systolic 79–122; BP diastolic 57–75
[2022-06-08] MEDS ORDERED: MIDAZOLAM 2 MG/2 ML VIAL ONE (00:03)
[2022-06-08] MEDS ORDERED: HYDROmorphone PFS 2 MG/ML SYR ONE (00:04)
--- NOTE | 2022-06-08 00:35 | NUR ---
PATIENT RETURNED FROM SURGERY HAS RECTAL CATHETER, CESAR DRAIN, COLOSTOMY
[2022-06-08] MEDS: NACL 0.9% 1,000 ML IV SCH ×5 (01:10→21:12)
[2022-06-08] MEDS: metroNIDAZOLE 500 MG/NS PREMIX 100 ML IV SCH ×3 (05:12→21:10)
[2022-06-08 05:57] LABS: BASOPHILS % (AUTO) 0.1 % (0.0-2.0); HEMATOCRIT 37.1 % (36-52); HEMOGLOBIN 12.5 g/dL (12.0-18.0); LYMPHOCYTES # (AUTO) 0.4 K/uL (2.0-11.5); LYMPHOCYTES % (AUTO) 3.6 % (20.5-51.1); MEAN CORPUSCULAR HEMOGLOBIN 30 pg (27-31); MEAN CORPUSCULAR HGB CONC 34 g/dL (33-37); MEAN CORPUSCULAR VOLUME 88.1 fL (80-94); MONOCYTES # (AUTO) 0.9 K/uL (0.8-1.0); MONOCYTES % (AUTO) 8.3 % (1.7-9.3); NEUTROPHILS # (AUTO) 9.3 K/uL (1.8-7.7); PLATELET COUNT (AUTO) 206 K/uL (140-450); RED BLOOD CELL COUNT(AUTO) 4.22 MIL/uL (4.20-6.10); RED CELL DISTRIBUTION WIDTH 15.3 % (11.6-13.7); WHITE BLOOD COUNT (AUTO) 10.5 K/uL (4.8-10.8)
[2022-06-08] MEDS: AMIODARONE 450 MG in DEXTROSE 5% 250 ML IV SCH ×2 (06:20→21:29)
[2022-06-08 06:26] LABS: ANION GAP 11.6 (8-16); CARBON DIOXIDE 25.2 mmol/L (21-32); CREATININE 1.5 mg/dL (0.6-1.3); POTASSIUM 3.8 mmol/L (3.5-5.1)
[2022-06-08] MEDS: LEVOFLOXACIN 750 MG/D5W PREMIX 150 ML IV SCH (07:11)
--- NOTE | 2022-06-08 07:25 | NUR ---
RECEIVED PT ON ACVC TV 600,F12,+5, 30%. VENT PLUGGED INTO RED OUTLET, WHEELS ARE LOCKED, AMBUBAG AT BEDSIDE, ALARMS ARE SET AND AUDIBLE. 0725 CPAP TRAIL STARTED ON PT 01/24. FOLLOWS COMMANDS.
--- NOTE | 2022-06-08 07:25 | NUR ---
CPAP TRAIL STARTED ON PT. 01/24.
--- NOTE | 2022-06-08 07:30 | NUR ---
RECEIVED BEDSIDE REPORT FROM EYE SPECIALIST RN, RUDY, FOR CONTINUITY OF CARE. PT AROUSABLE TO NAME, ABLE TO FOLLOW COMMANDS AND ANSWER YES OR NO QUESTIONS. ETT TO VENT AC/VC FIO2 35%, VT 600, RR 12, PEEP 5. AFIB ON MONITOR. 18G TO RAC INFUSING AMIODARONE AT 0.5 MG/MIN AND LEVOFLOXACIN AT 100 ML/HR. 22G IV TO R FA SALINE LOCK. NGT TO L NARE CLAMPED, PT NPO. F/C TO GRAVITY DRAINING DARK MEHRAN URINE. SURGICAL WOUND DRESSING TO MIDLINE ABD INTACT. OSTOMY PINK AND WNL WITH OSTOMY BAG IN PLACE. CESAR DRAIN TO L ABD DRAINING REYES RED FLUID. RECTAL CATHETER IN PLACE DRAINING BROWN LIQUID STOOL. STANDARD PRECAUTION. BED LOCKED AND LOWEST POSITION.
--- NOTE | 2022-06-08 07:40 | NUR ---
TRANSFER OF CARE TO DAY SHIFT, REPORT ENDORSED TO ROB
[2022-06-08] MEDS: HYDROmorphone 1 MG/ML AMP IVP PRN (08:22)
[2022-06-08] MEDS: ONDANSETRON 4 MG/2 ML VIAL IM/IVP PRN ×3 (08:22→17:45)
[2022-06-08] MEDS ORDERED: ASCORBIC ACID 500 MG TAB PO SCH (09:00)
[2022-06-08] MEDS ORDERED: ATORVASTATIN 20 MG TAB PO SCH (09:00)
[2022-06-08] MEDS: ZINC SULF 220 MG CAP PO SCH (09:00)
--- NOTE | 2022-06-08 09:04 | NUR ---
PT WAS ON CPAP FOR 90MIN,01/24. VOLUMES WERE EXCELLENT, BLOOD PRESSURE WAS STABLE, SATURATION 96% ON 35%FIO2. RSBI WAS 34. PT GIVEN MEDS FOR PAIN. PT WAS PUT BACK ON FULL SUPPORT THAT TIME. WILL CONTINUE TO MONITOR.
--- NOTE | 2022-06-08 10:41 | NUR ---
PICC NURSE JEFFERY AT BEDSIDE, PLACED PICC TO STALIN CONFIRMED PLACEMENT WITH XRAY. OK TO USE PICC
[2022-06-08] MEDS ORDERED: ALBUTEROL SULFATE/IPRATROPIU 3 ML SOL IH PRN (10:50)
--- NOTE | 2022-06-08 12:55 | NUR ---
PHYSICAL THERAPY NOTE: NEW ORDER NEEDED WHEN PATIENT IS APPROPRIATE FOR PHYSICAL THERAPY EVALUATION; CHANGE IN CONDITION AND IS INTUBATED.
--- NOTE | 2022-06-08 13:30 | NUR ---
PER DR. CARRILLO VERBAL ORDER. CPAP 8/5 FOR 2 HOURS. VERBAL EXTUBATION ORDER PER DR. CARRILLO FOR 06/09/22.
[2022-06-08] MEDS: MORPHINE SULFATE 4 MG/ML SYR IVP PRN ×2 (13:40→17:46)
--- NOTE | 2022-06-08 13:50 | NUR ---
SEEN AND EXAMINED BY DR. CARRILLO, ORDERS RECEIVED.
--- NOTE | 2022-06-08 14:01 | NUR ---
WOUND CARE NOTE: PT. WITH S/P LAPAROTOMY, WITH ILEOSTOMY PROCEDURES THIS AM. POC DISCUSSED WITH PRIMARY RN AGNIESZKA. PT. WITH LOW CHICO SCALE AT MODERATE TO HIGH RISK, CONTINUE TO FOLLOW PRESSURE INJURY PREVENTION INTERVENTIONS. -PROVIDES OREN CARE Q2H AND APPLY Z GUARD BID AND PRN IF SOILING -POSITIONING: TURN AND REPOSITION PATIENT Q 2H OR SOONER USE PILLOWS TO KEEP BONY PROMINENCES FROM DIRECT CONTACT WITH SURFACES USE REPOSITIONING WEDGES TO PROVIDE 30-DEGREE ANGLE FOR SIDE LYING POSITIONS OFFLOADING OR FOAM DRESSING TO ALL TUBING TO PREVENT MEDICAL DEVICES RELATED PRESSURE INJURY -RE-EVALUATING AND MANAGING INCONTINENCE MONITOR SKIN CONDITION DURING POSITION CHANGE DO NOT MASSAGE REDNESS, BONY PROMINENCES FREQUENT OREN-CARE AND PROVIDE BARRIER CREAMS PRN IF SOILING MOISTURE CONTROL BY ABSORBENT PAD TO WICK AND HOLD MOISTURE KEEP SKIN DRY AND PROTECT FROM FRICTION -MANAGE FRICTION/SHEAR/MOBILITY KEEP HOB AT THE LOWEST LEVEL OF ELEVATION NO MORE THAN 30 DEGREE UNLESS OTHERWISE CONTRAINDICATED USE LIFT SHEET TO MOVE PATIENT AND PREVENT LATERAL SHEER. PROTECT HEELS, ELBOWS BONY PROMINENCES WITH SKIN BERRIES OR FOAM DRESSING IF EXPOSED TO FRICTION OFFLOAD BILATERAL HEELS BY PLACING PILLOWS UNDER CALVES AT ALL TIMES, UNLESS OTHERWISE CONTRAINDICATED -PRESSURE REDISTRIBUTION SURFACE THERAPY AMELIE ISOFLEX MATTRESS -NUTRITION: PLEASE FOLLOW RD RECOMMENDATIONS AND OFFER NUTRITION SUPPLEMENTS IF ORDERED. PLEASE CONTACT WOUND CARE NURSE FOR ANY QUESTION AND CHANGE OF WOUND CONDITION.
[2022-06-08] MEDS: PANTOPRAZOLE 40 MG INJ VIAL IVP SCH (15:00)
--- NOTE | 2022-06-08 15:14 | NUR ---
SEEN AND EXAMINED BY DR. BENTLEY. NO NEW ORDERS.
--- NOTE | 2022-06-08 15:25 | NUR ---
MESSAGED Krystal NDIAYE REGARDING TUBE FEEDING ORDERS. ORDERED TO KEEP PT NPO EXCEPT MEDS AT LEAST UNTIL SATURDAY.
--- NOTE | 2022-06-08 15:40 | NUR ---
CPAP 8/ WENT WELL FOR PT. LASTED 2 HOURS. VOLUMES WERE 600-760. FOLLOWS COMMANDS. SATURATION WAS 96%. NO DISTRESS DURING THE 2 HOUR CPAP TRIAL.
--- NOTE | 2022-06-08 15:42 | NUR ---
06/08/22 RD INITIAL ASSESSMENT COMPLETED PLEASE REFER TO NUTRITION ASSESSMENT UNDER CARE ACTIVITY FOR ESTIMATED NUTRITIONAL NEEDS. 1. CONTINUE NPO PER MD 2. RECOMMEND CARDIAC DIET IF/WHEN MEDICALLY APPROPRIATE 3. IF NPO > 3 DAYS, RECOMMEND NUTRITION SUPPORT IF/WHEN MEDICALLY APPROPRIATE -RECOMMEND VITAL AF 1.2 AT GOAL RATE 75 ML/HR, FWF 125 ML Q4H TOLERATED - PROVIDES 1800 ML TOTAL VOLUME, 2160 KCAL, 135 GM PROTEIN AND 2210 ML FREE WATER DAILY MEETING 82% ESTIMATED KCAL NEEDS AND 100% ESTIMATED PROTEIN NEEDS; ADEQUATE - START TF AT 1O ML/HR INCREASE BY 1O ML Q4H UNTIL GOAL IS REACHED TOLERATED 4. MONITOR GI SYMPTOMS AND NUTRITION RELATED LAB VALUES 5. CONSULT RD PRN 6. RD TO FOLLOW-UP 2-3 DAYS, HIGH RISK REVIEWED BY ANNETTE LUCIANO RD
--- NOTE | 2022-06-08 20:02 | NUR ---
ENDORSED BEDSIDE REPORT TO NICOLE, [employer] UNDERWRITER HUMAN RESOURCES MANAGER, FOR CONTINUITY OF CARE.
--- NOTE | 2022-06-08 21:44 | NUR ---
PATIENT STABLE VITALS SIGNS IN NORMAL LIMITS AF 102 ON MONITOR AMIODARONE DRIP CONTINUED HEPARIN SQ 5000 UNITS GAVE
[2022-06-08] MEDS: Z-GUARD PASTE TP SCH (23:41)
[2022-06-09] VITALS (28 sets, daily range): BP systolic 104–130; BP diastolic 56–116
--- NOTE | 2022-06-09 00:50 | NUR ---
PATIENT STABLE VITALS SIGNS IN NORMAL LIMITS AF 100 ON MONITOR
[2022-06-09] MEDS: metroNIDAZOLE 500 MG/NS PREMIX 100 ML IV SCH ×3 (05:10→20:55)
[2022-06-09] MEDS: NACL 0.9% 1,000 ML IV SCH ×2 (05:13→12:36)
[2022-06-09 05:48] LABS: HEMATOCRIT 34.5 % (36-52); HEMOGLOBIN 11.4 g/dL (12.0-18.0); LYMPHOCYTES # (AUTO) 0.6 K/uL (2.0-11.5); LYMPHOCYTES % (AUTO) 4.4 % (20.5-51.1); MEAN CORPUSCULAR HEMOGLOBIN 29 pg (27-31); MEAN CORPUSCULAR HGB CONC 33 g/dL (33-37); MEAN CORPUSCULAR VOLUME 88.1 fL (80-94); MONOCYTES # (AUTO) 1.4 K/uL (0.8-1.0); MONOCYTES % (AUTO) 9.8 % (1.7-9.3); NEUTROPHILS # (AUTO) 12.7 K/uL (1.8-7.7); NEUTROPHILS % (AUTO) 85.8 % (42.2-75.2); PLATELET COUNT (AUTO) 236 K/uL (140-450); RED BLOOD CELL COUNT(AUTO) 3.92 MIL/uL (4.20-6.10); RED CELL DISTRIBUTION WIDTH 15.2 % (11.6-13.7); WHITE BLOOD COUNT (AUTO) 14.8 K/uL (4.8-10.8)
[2022-06-09] MEDS: LEVOFLOXACIN 750 MG/D5W PREMIX 150 ML IV SCH (06:09)
[2022-06-09 06:25] LABS: ANION GAP 10.5 (8-16); CARBON DIOXIDE 26.5 mmol/L (21-32); CREATININE 1.3 mg/dL (0.6-1.3)
--- NOTE | 2022-06-09 06:26 | NUR ---
PATIENT STABLE NOT COMPLAINING OF PAIN AT THIS TIME VITALS SIGNS IN NORMAL LIMITS AF 115 ON MONITOR BATH AND ORAL CARE WAS GIVE MIDLINE DRESSING INTACT 50 ML OUT FROM CESAR AMIODARONE DRIP CONTINUE 0.5
--- NOTE | 2022-06-09 07:20 | NUR ---
RECEIVED BEDSIDE REPORT FROM ELECTRICAL PROSPECTOR MANAGER FRAUDSHADI, FOR CONTINUITY OF CARE. PT AROUSABLE TO NAME, ABLE TO FOLLOW COMMANDS AND ANSWER YES OR NO QUESTIONS. ETT TO VENT AC/VC FIO2 35%. AFIB ON MONITOR. PICC TO STALIN INFUSING AMIODARONE AT 0.5 MG/MIN AND LEVOFLOXACIN AT 100 ML/HR. 18G TO RAC AND 22G IV TO R FA SALINE LOCK. NGT TO L NARE CLAMPED, PT NPO EXCEPT MEDS. F/C TO GRAVITY DRAINING DARK MEHRAN URINE. SURGICAL WOUND DRESSING TO MIDLINE ABD INTACT. OSTOMY PINK AND WNL WITH OSTOMY BAG IN PLACE. CESAR DRAIN TO L ABD DRAINING REYES RED FLUID. RECTAL CATHETER IN PLACE DRAINING BROWN LIQUID STOOL. STANDARD PRECAUTION. BED LOCKED AND LOWEST POSITION.
--- NOTE | 2022-06-09 07:20 | NUR ---
PT PLACED ON CPAP TRIAL, PS 8, PEEP 5, 30%. BACK UP SETTINGS ACVC12, 600, 5, 35%. RN NOTIFIED, ALARMS ON AND AUDIBLE TO NURSES STATION. AMBU BAG AT BEDSIDE, VENT LOCKED AND PLUGGED INTO RED OUTLET. WILL CONTINUE TO MONITOR PT.
[2022-06-09] MEDS: PANTOPRAZOLE 40 MG INJ VIAL IVP SCH (08:10)
[2022-06-09] MEDS: ZINC SULF 220 MG CAP PO SCH (08:11)
[2022-06-09] MEDS: ONDANSETRON 4 MG/2 ML VIAL IM/IVP PRN ×2 (09:09→13:40)
[2022-06-09] MEDS: MORPHINE SULFATE 4 MG/ML SYR IVP PRN ×2 (09:09→13:40)
--- NOTE | 2022-06-09 12:10 | NUR ---
SEEN AND EXAMINED BY DR. LOUISE. ORDERS TO EXTUBATE PT.
--- NOTE | 2022-06-09 12:35 | NUR ---
PT EXTUBATED AT THIS TIME AFTER CPAP TRIAL. CPAP PS 8, PEEP 5, AND 30% FIO2. NIF -24, RSBI 25, VITAL CAPACITY 470. PT WAS AWAKE AND ALERT AFTER 4 HOURS ON CPAP. PT WAS ABLE TO FOLLOW COMMANDS. BREATH SOUNDS WERE CLEAR. PT WAS PLACED ON COOL AEROSOL MASK PER RT PROTOCOL. PT IS NOW SATING 98% ON 6L. WILL CONTINUE TO MONITOR PT VITALS. VIEW IN DOC SPREADSHEET.
--- NOTE | 2022-06-09 12:45 | NUR ---
SEEN AND EXAMINED BY DR. ANNE. NO NEW ORDERS.
--- NOTE | 2022-06-09 13:20 | NUR ---
SEEN AND EXAMINED BY DR. NEIL, NO NEW ORDERS.
[2022-06-09] MEDS: Z-GUARD PASTE TP SCH ×2 (13:40→20:59)
--- NOTE | 2022-06-09 14:20 | NUR ---
ILEOSTOMY OUTPUT LIQUID BROWN 100 ML OUTPUT. STOMA WNL.
--- NOTE | 2022-06-09 18:58 | NUR ---
ENDORSED BEDSIDE REPORT TO SHADI BACTERIOLOGIST SOIL DRAPERY EXAMINER, FOR CONTINUITY OF CARE.
[2022-06-10] VITALS (26 sets, daily range): BP systolic 122–167; BP diastolic 55–125
--- NOTE | 2022-06-10 00:35 | NUR ---
PATIENT STABLE VITALS SIGNS IN NORMAL LIMITS AF 109 ON MONITPR CONTINUE DRIP OF AMIODARONE 0.5
[2022-06-10] MEDS: NACL 0.9% 1,000 ML IV SCH ×3 (02:53→20:29)
[2022-06-10] MEDS ORDERED: AMIODARONE 150 MG/3 ML VIAL IV ONE (04:06)
[2022-06-10] MEDS: AMIODARONE 450 MG in DEXTROSE 5% 250 ML IV SCH ×2 (04:30→20:28)
[2022-06-10] MEDS: metroNIDAZOLE 500 MG/NS PREMIX 100 ML IV SCH ×3 (05:03→20:24)
--- NOTE | 2022-06-10 05:14 | NUR ---
PATIENT STABLE VITALS SIGNS IN NORMAL LIMITS NOT COMPLAININ OF PAIN AT THIS TIME AF 109 ON MONITOR BATH AND ORAL CARE WAS DONE
[2022-06-10] MEDS: LEVOFLOXACIN 750 MG/D5W PREMIX 150 ML IV SCH (05:39)
--- NOTE | 2022-06-10 06:18 | NUR ---
PATIENT STABLE NOT COMPLAINING OF PAIN AT THIS TIME VITALS SIGNS IN NORMAL LIMITS AF 108 CONTINUE AMIODARONE DRIP AT 0.5
[2022-06-10 06:25] LABS: HEMATOCRIT 33.8 % (36-52); MEAN CORPUSCULAR HEMOGLOBIN 29 pg (27-31); MEAN CORPUSCULAR HGB CONC 33 g/dL (33-37); MEAN CORPUSCULAR VOLUME 88.4 fL (80-94); PLATELET COUNT (AUTO) 242 K/uL (140-450); RED BLOOD CELL COUNT(AUTO) 3.82 MIL/uL (4.20-6.10); RED CELL DISTRIBUTION WIDTH 15.3 % (11.6-13.7); WHITE BLOOD COUNT (AUTO) 16.4 K/uL (4.8-10.8)
[2022-06-10 06:26] LABS: ANION GAP 11.6 (8-16); CARBON DIOXIDE 26.2 mmol/L (21-32); POTASSIUM 3.8 mmol/L (3.5-5.1)
[2022-06-10] MEDS: MORPHINE SULFATE 4 MG/ML SYR IVP PRN ×2 (07:07→20:19)
[2022-06-10] MEDS: ONDANSETRON 4 MG/2 ML VIAL IM/IVP PRN ×2 (07:07→20:18)
[2022-06-10 07:38] LABS: LYMPHOCYTES % (MANUAL) 4 % (20-46); MONOCYTES % (MANUAL) 9 % (5-12)
--- NOTE | 2022-06-10 08:00 | NUR ---
ON DUTY RECEIVED PT LYING ON BED, WATCHING TV. A/XO4, DENIES PAIN AND UNCOMFORT. ON AMIODARONE DRIP @0.5MCG. HR WAS 100-120'S. NO ACUTE DISTRESS.
[2022-06-10] MEDS: PANTOPRAZOLE 40 MG INJ VIAL IVP SCH (09:25)
[2022-06-10] MEDS: ZINC SULF 220 MG CAP PO SCH (09:26)
--- NOTE | 2022-06-10 11:07 | NUR ---
PER PT REQUESTS, CUP OF WATER OFFERED TO PT. PT DRINKING WELL.
--- NOTE | 2022-06-10 11:31 | NUR ---
06/10/22 RD FOLLOW UP COMPLETED. PLEASE REFER TO NUTRITION ASSESSMENT UNDER CARE ACTIVITY FOR ESTIMATED NUTRITIONAL NEEDS. 1. CONTINUE NPO PER MD 2. RECOMMEND CARDIAC DIET IF/WHEN MEDICALLY APPROPRIATE 3. IF NPO > 3 DAYS, RECOMMEND NUTRITION SUPPORT IF/WHEN MEDICALLY APPROPRIATE -RECOMMEND VITAL AF 1.2 AT GOAL RATE 75 ML/HR, FWF 125 ML Q4H TOLERATED RECOMMENDED BY RD 06/08/22 - START TF AT 1O ML/HR INCREASE BY 1O ML Q4H UNTIL GOAL IS REACHED TOLERATED - PROVIDES 1800 ML TOTAL VOLUME, 2160 KCAL, 135 GM PROTEIN AND 1460 ML FREE WATER DAILY MEETING 82% ESTIMATED KCAL NEEDS AND 100% ESTIMATED PROTEIN NEEDS; ADEQUATE - START TF AT 1O ML/HR INCREASE BY 1O ML Q4H UNTIL GOAL IS REACHED TOLERATED 4. MONITOR GI SYMPTOMS 5. CONSULT RD PRN 6. RD TO FOLLOW-UP 2-3 DAYS, HIGH RISK GORAN MOSQUEDA RD
--- NOTE | 2022-06-10 11:37 | NUR ---
ILEOSTOMY BAG WAS EMPTED.
[2022-06-10] MEDS: Z-GUARD PASTE TP SCH ×2 (13:02→20:30)
[2022-06-10] MEDS: ZOLPIDEM 5 MG TAB PO PRN (20:55)
[2022-06-11] VITALS (23 sets, daily range): BP systolic 129–170; BP diastolic 34–111
--- NOTE | 2022-06-11 01:54 | NUR ---
PATIENT STABLE VITALS SIGNS IN NORMAL LIMITS NOT COMPLAINING OF PAIN AT THIS TIME AF 109 CONTINUE AMIODARONE DRIP
--- NOTE | 2022-06-11 05:13 | NUR ---
PATIENT STABLE VITALS SIGNS IN NORMAL LIMITS AF 109 ON MONITOR SPO2 100% AT RA NOT COMPLAINING OF PAIN AT THIS TIME
[2022-06-11] MEDS: MORPHINE SULFATE 4 MG/ML SYR IVP PRN ×2 (05:25→14:03)
[2022-06-11] MEDS: ONDANSETRON 4 MG/2 ML VIAL IM/IVP PRN (05:25)
[2022-06-11] MEDS: PANTOPRAZOLE 40 MG INJ VIAL IVP SCH (05:53)
[2022-06-11] MEDS: ZINC SULF 220 MG CAP PO SCH (05:55)
[2022-06-11] MEDS: NACL 0.9% 1,000 ML IV SCH (06:04)
[2022-06-11 06:21] LABS: BASOPHILS # (AUTO) 0.1 K/uL (0.00-0.22); BASOPHILS % (AUTO) 0.4 % (0.0-2.0); EOSINOPHILS # (AUTO) 0.1 K/uL (0-0.4); EOSINOPHILS % (AUTO) 0.4 % (0.0-4.0); HEMOGLOBIN 11.5 g/dL (12.0-18.0); LYMPHOCYTES # (AUTO) 1.3 K/uL (2.0-11.5); LYMPHOCYTES % (AUTO) 7.4 % (20.5-51.1); MEAN CORPUSCULAR HEMOGLOBIN 29 pg (27-31); MEAN CORPUSCULAR HGB CONC 33 g/dL (33-37); MEAN CORPUSCULAR VOLUME 88.3 fL (80-94); MONOCYTES # (AUTO) 1.2 K/uL (0.8-1.0); MONOCYTES % (AUTO) 6.7 % (1.7-9.3); NEUTROPHILS # (AUTO) 14.8 K/uL (1.8-7.7); NEUTROPHILS % (AUTO) 85.1 % (42.2-75.2); PLATELET COUNT (AUTO) 244 K/uL (140-450); RED BLOOD CELL COUNT(AUTO) 3.96 MIL/uL (4.20-6.10); RED CELL DISTRIBUTION WIDTH 15.2 % (11.6-13.7); WHITE BLOOD COUNT (AUTO) 17.4 K/uL (4.8-10.8)
[2022-06-11 06:32] LABS: CARBON DIOXIDE 27.5 mmol/L (21-32); CREATININE 0.8 mg/dL (0.6-1.3); POTASSIUM 3.5 mmol/L (3.5-5.1)
--- NOTE | 2022-06-11 09:11 | NUR ---
Patient is alert and oriented, denied any pain. wound care to abdomen done and cleaned and covered. colostomy bag emptied. am meds given. continued on Amiodarone drip. Turned and repositioned.
--- NOTE | 2022-06-11 09:15 | NUR ---
COLOSTOMY TEACHIN TO PT. PT. NOT ABLE TO UNDERSTAND/COMPREHENSIVE TO THE CARE. -MID ABDOMINAL SURGICAL WOUNDS MULTIPLE JOSEMANUEL IN PLACE, CLEAN, NO S/S OF WOUND DEHISCENCE -LLQ ABD COLOSTOMY, OREN STOMA SKIN CLEAN AND INTACT, STOMA MOIST, BEEFY RED, ROUND SHAPE 2 (51MM), PROTRUSION 1.8CM , LUMEN OPENING TO 6 OCLOCK -LLQ ABD CESAR DRAIN, SECURED WITH SUTURE, SITE IS CLEAN, SEROUS SANGUINOUS DRAINAGE. RECOMMENDATIONS: PRIMARY RN CONTINUE TEACHING WOUND CARE AND COLOSTOMY CARE IF PT. IS CAPABLE. -HOME HEALTH TO FOLLOW UPON DISCHARGED -CLEANSE MID ABD WOUND WITH NS. PAT DRY, AND COVER WITH DRY DRESSING SECURE WITH TAPE QD AND PRN IF SOILING -CONTINUE TO MONITOR AND RECORD CESAR DRAIN -OSTOMY CARE PER PROTOCOL AND DURING OSTOMY CARE PLEASE FOLLOW INSTRUCTION BELOW: -CHECK OREN STOMA SKIN CONDITION EVERY TIME WAFER CHANGED Q 5 DAYS AND PRN IF DISPLACED -APPLY SKIN PREP TO OREN-OSTOMY SKIN -APPLY STOMA ADHESIVE PAST TO THE WAFER, NEAR THE EDGE OF STOMA SKIN AREA, PAT FLAT. APPLY SKIN PREP TO OREN-STOMA SKIN - USE 2- PIECES ROBERTO OSTOMY DEVICES WITH 1 3/4 (44MM), FLEX TO FIT THE STOMA EXACTLY. NO SKIN SHOWING. APPLY PRE-SHAPE WAFER TO OSTOMY AND ATTACHED POUCH TO WAFER. CHANGE WAFER Q5 DAYS. -EMPTY AND RINSE POUCH WHEN IT IS 1/2 FULL. CHANGE POUCH Q5 DAYS AND PRN IF LEAK -MAY DISCHARGE HOME WITH SUPPLIES FOLLOWIN COMPLETE POUCH CHANGES 1 TUBE OF STOMA ADHESIVE PASTE 1 BOTTLE OF STOMA ADHESIVE POWDER 4 SKIN PREP
--- NOTE | 2022-06-11 09:15 | NUR ---
WOUND CARE NOTE: MID ABDOMINAL WOUND JOSEMANUEL IN PLACE NO S/S OF WOUND DEHISCENCE,LLQ ABD COLOSTOMY STOMA 2" BEEFY READ,FUNCTIONING. DRESSING CHANGE AND OSTOMY CARE DONE WITH PRIMARY RN PANCHITO, PT POSITION TO SIDE LYING. POC DISCUSSED WITH PT. AND PT. VERBALIZES UNDERSTANDING. POC DISCUSSED WITH PRIMARY RN.
[2022-06-11] MEDS: LEVOFLOXACIN 500 MG/D5W PREMIX 100 ML IV SCH (10:17)
--- NOTE | 2022-06-11 10:21 | NUR ---
Levaquin 500 mg ivpb started. will continue to monitor.
[2022-06-11] MEDS: metroNIDAZOLE 500 MG/NS PREMIX 100 ML IV SCH ×2 (12:49→21:01)
[2022-06-11] MEDS: Z-GUARD PASTE TP SCH (12:50)
--- NOTE | 2022-06-11 15:32 | NUR ---
Patient in bed, turned and reposition. IV PICC line in the STALIN intact and patent. IV ABT infusing without reaction. Illiostomy emptied. will continue to monitor.
[2022-06-11] MEDS: METOPROLOL 50 MG TAB PO SCH ×2 (16:46→21:01)
--- NOTE | 2022-06-11 19:20 | NUR ---
RECEIVED PATIENT ON BED; AWAKE, ALERT AND ORIENTED; BREATHING EVEN AND UNLABORED ON ROOM AIR; SO2 98%. CARDIACSCOPE SHOWS ON A FIB WITH MODERATED VENTRICULAR RESPONSE. WITH PICC LINE TO RIGHT UPPER ARM; PATENT AND INTACT. ABDOMEN IS SOFT; HYPOACTIVE BOWEL SOUNDS; NPO EXCEPT MEDS. COLOSTOMY IN PLACE. WITH CESAR DRAIN IN PLACE TO LEFT SIDE OF THE HIP AND WITH RECTAL CATH IN PLACE. BURGESS CATH TO GRAVITY DRAINAGE BAG DRAINING TO DARK MEHRAN URINE OUTPUT; INTACT. WITH RIGHT SIDED WEAKNESS NOTED.
--- NOTE | 2022-06-11 21:30 | NUR ---
TURNED AND REPOSITIONED PATIENT.
[2022-06-12] VITALS (21 sets, daily range): BP systolic 96–166; BP diastolic 61–150
[2022-06-12] MEDS: MORPHINE SULFATE 4 MG/ML SYR IVP PRN ×3 (01:55→20:03)
[2022-06-12] MEDS: METOPROLOL 50 MG TAB PO SCH ×3 (05:44→20:03)
[2022-06-12] MEDS: metroNIDAZOLE 500 MG/NS PREMIX 100 ML IV SCH ×3 (05:44→20:04)
--- NOTE | 2022-06-12 07:30 | NUR ---
RECEIVED PT IN HOSPITAL BED, ASLEEP BUT AROUSABLE. AFIB CONTROLLED ON MONITOR. PICC LINE NOTED TO RUA. CHAN. SAFETY MAINTAINED.
[2022-06-12] MEDS: ZINC SULF 220 MG CAP PO SCH (09:00)
[2022-06-12] MEDS: PANTOPRAZOLE 40 MG INJ VIAL IVP SCH (09:00)
[2022-06-12 10:52] LABS: ANION GAP 12.1 (8-16); CARBON DIOXIDE 24.5 mmol/L (21-32); CREATININE 0.7 mg/dL (0.6-1.3); POTASSIUM 3.6 mmol/L (3.5-5.1)
[2022-06-12] MEDS: LEVOFLOXACIN 500 MG/D5W PREMIX 100 ML IV SCH (10:54)
[2022-06-12 10:55] LABS: BASOPHILS # (AUTO) 0.1 K/uL (0.00-0.22); BASOPHILS % (AUTO) 0.3 % (0.0-2.0); EOSINOPHILS # (AUTO) 0.2 K/uL (0-0.4); EOSINOPHILS % (AUTO) 0.7 % (0.0-4.0); HEMATOCRIT 39.4 % (36-52); HEMOGLOBIN 12.9 g/dL (12.0-18.0); LYMPHOCYTES # (AUTO) 1.7 K/uL (2.0-11.5); LYMPHOCYTES % (AUTO) 6.7 % (20.5-51.1); MEAN CORPUSCULAR HEMOGLOBIN 29 pg (27-31); MEAN CORPUSCULAR HGB CONC 33 g/dL (33-37); MEAN CORPUSCULAR VOLUME 88.5 fL (80-94); MONOCYTES # (AUTO) 1.9 K/uL (0.8-1.0); MONOCYTES % (AUTO) 7.3 % (1.7-9.3); NEUTROPHILS # (AUTO) 21.6 K/uL (1.8-7.7); PLATELET COUNT (AUTO) 269 K/uL (140-450); RED BLOOD CELL COUNT(AUTO) 4.45 MIL/uL (4.20-6.10)
[2022-06-12 11:00] LABS: WHITE BLOOD COUNT (AUTO) 25.4 K/uL (4.8-10.8)
--- NOTE | 2022-06-12 11:00 | NUR ---
TEXT DR FLEMING REGARDING ELEVATED WBC, PENDING FURTHER ORDERS
[2022-06-12] MEDS: HYDROmorphone 1 MG/ML AMP IVP PRN ×2 (13:39→22:52)
--- NOTE | 2022-06-12 13:39 | NUR ---
DR GAONA AT BEDSIDE TO ASSESS PT. NEW ORDERS NOTED.
--- NOTE | 2022-06-12 18:20 | NUR ---
DR MORRIS AT BEDSIDE NEW ORDERS NOTED
--- NOTE | 2022-06-12 18:32 | NUR ---
DR FLEMING NOTIFIED OF RIGHT ARM SWELLING AND PT UNABLE TO MOVE, STATES WILL ORDER AN US.
--- NOTE | 2022-06-12 19:08 | NUR ---
REPORT GIVEN TO RUDY BUTLER
--- NOTE | 2022-06-12 19:15 | NUR ---
TRANSFER OF CARE FROM DAY SHIFT, REPORT RECEIVED FROM CRISTY BUTLER. PATIENT RECEIVED AWAKE, ALERT AND LYING IN BED WATCHING TV. DOES NOT APPEAR TO BE IN DISTRESS. PATIENT HAS PICC LINE IN STALIN; WITH NOTED SWELLING OF THE EXTREMITY. PATIENT HAS PENDING DOPPER SCHEDULED TO R/O DVT. HAS NORMAL SALINE INFUSING AT 5ML/HR. CURRENT VITALS AT START OF SHIFT: BP = 152/108, HR = 105, R = 12, O2 SAT = 95%, AND TEMP = 97.5F. PATIENT WITH RECTAL TUBE, BURGSES CATHETER. WILL CONTINUE TO MONITOR PATIENT.
--- NOTE | 2022-06-12 20:34 | NUR ---
RADIOLOGY AT BEDSIDE TO PERFORM RUE DOPPLER
[2022-06-13] VITALS (8 sets, daily range): BP systolic 108–140; BP diastolic 58–96
[2022-06-13] MEDS ORDERED: PIPERACILLIN/TAZOBACTAM 3.375 GM in DEXTROSE 5% 50 ML IV SCH ×2
[2022-06-13] MEDS: Z-GUARD PASTE TP SCH ×2 (01:00→13:46)
[2022-06-13] MEDS: METOPROLOL 50 MG TAB PO SCH ×3 (04:09→21:00)
[2022-06-13] MEDS: metroNIDAZOLE 500 MG/NS PREMIX 100 ML IV SCH ×3 (04:09→20:57)
[2022-06-13] MEDS: MORPHINE SULFATE 4 MG/ML SYR IVP PRN ×3 (04:10→20:58)
--- NOTE | 2022-06-13 06:23 | NUR ---
PATIENT TRANSFERRED TO [facility]; CARE OF PATIENT ENDORSED TO LUKE ONEIL
--- NOTE | 2022-06-13 06:35 | NUR ---
RECEIVED PT FROM ICU NURSE RUDY FOR CONTINUITY OF CARE. PT AWAKE. CONNECTED TO WHEEL ASSEMBLER. RESPIRATIONS EVEN AND UNLABORED ON RA. STALIN PICC LINE TKO. COLOSTOMY BAG INTACT. RECTAL TUBE AND FOLLEY CATHETER DRAINING WELL. CESAR DRAIN INTACT. NOTED SURGICAL WOUND ON THE ABD, DRESSING DRY AND INTACT. PT ORIENTED TO ROOM, ROUTINE AND UNIT. POC DISCUSSED WITH PT. CALL LIGHT WITHIN REACH. SAFETY PRECAUTIONS IN PLACE.
--- NOTE | 2022-06-13 07:29 | NUR ---
GAVE BEDSIDE REPORT TO RN SOUTH FOR CONTINUITY OF CARE. ALL NEEDS MET THROUGHOUT SHIFT. PT IS STABLE.
--- NOTE | 2022-06-13 07:30 | NUR ---
RECEIVED PT FROM [facility] NURSECLARICE. PT AWAKE & ALERT. PT ABLE TO SAY SIMPLE WORDS FOR NEEDS. RR EVEN & UNLABORED. ON RA. O2 SATURATION @ 96%. SEMI FOWLERS. TELE, AFIB. CLEAR LIQUID DIET. PROVIDED THICKENED LIQUIDS TO PT AND PT TOLERATED WELL WITH NO SIGNS OF ASPIRATION. PROVIDED THIN LIQUIDS, NO SIGNS OF ASPIRATION, NO COUGHING. STALIN PICC LINE DOUBLE LUMEN TKO. R SIDE WEAKNESS WITH HISTORY OF CVA. BURGESS AND RECTAL TUBE VIA GRAVITY. CESAR DRAIN ON LLQ VIA NEGATIVE PRESSURE DRAINING SCANT AMOUNT OF SEROSANGUINOUS DRAINAGE. MID ABDOMEN WITH JOSEMANUEL, NO S/S OF INFECTION. ABDOMINAL PAD REAPPLIED. COLOSTOMY BAG ON ABDOMEN. NEEDS ALL MET AT THIS TIME. ALL SAFETY MEASURES IN PLACE.
[2022-06-13] MEDS: ZINC SULF 220 MG CAP PO SCH (08:33)
[2022-06-13] MEDS: PANTOPRAZOLE 40 MG INJ VIAL IVP SCH (08:33)
[2022-06-13] MEDS: HYDROmorphone 1 MG/ML AMP IVP PRN ×2 (08:35→16:31)
--- NOTE | 2022-06-13 08:35 | NUR ---
PT C/O PAIN. PRN PAIN MED GIVEN. SEE PAIN ASSESSMENT/REASSESSMENT.
[2022-06-13] MEDS: LEVOFLOXACIN 500 MG/D5W PREMIX 100 ML IV SCH (09:23)
[2022-06-13 10:40] LABS: BASOPHILS # (AUTO) 0.1 K/uL (0.00-0.22); BASOPHILS % (AUTO) 0.4 % (0.0-2.0); EOSINOPHILS # (AUTO) 0.1 K/uL (0-0.4); EOSINOPHILS % (AUTO) 0.5 % (0.0-4.0); HEMATOCRIT 35.4 % (36-52); HEMOGLOBIN 11.5 g/dL (12.0-18.0); LYMPHOCYTES # (AUTO) 1.3 K/uL (2.0-11.5); LYMPHOCYTES % (AUTO) 5.6 % (20.5-51.1); MEAN CORPUSCULAR HEMOGLOBIN 29 pg (27-31); MEAN CORPUSCULAR HGB CONC 33 g/dL (33-37); MEAN CORPUSCULAR VOLUME 88.2 fL (80-94); MONOCYTES # (AUTO) 1.3 K/uL (0.8-1.0); MONOCYTES % (AUTO) 5.8 % (1.7-9.3); NEUTROPHILS # (AUTO) 19.8 K/uL (1.8-7.7); NEUTROPHILS % (AUTO) 87.7 % (42.2-75.2); PLATELET COUNT (AUTO) 233 K/uL (140-450); RED BLOOD CELL COUNT(AUTO) 4.01 MIL/uL (4.20-6.10); RED CELL DISTRIBUTION WIDTH 15.4 % (11.6-13.7); WHITE BLOOD COUNT (AUTO) 22.5 K/uL (4.8-10.8)
--- NOTE | 2022-06-13 16:39 | NUR ---
06/13/22 RD FOLLOW UP COMPLETED PLEASE REFER TO NUTRITION ASSESSMENT UNDER CARE ACTIVITY FOR ESTIMATED NUTRITIONAL NEEDS. 1. RECOMMEND CARDIAC, SOFT DIET TOLERATED 2. MONITOR GI SYMPTOMS AND PO INTAKE 3. RD TO FOLLOW-UP 3-5 DAYS, MODERATE RISK REVIEWED BY ANNETTE LUCIANO RD
--- NOTE | 2022-06-13 19:23 | NUR ---
REPORT GIVEN TO NIGHTSHIFT NURSEZANDER FOR CONTINUITY OF CARE.
--- NOTE | 2022-06-13 19:24 | NUR ---
RECD. RESTING IN BED, AWAKE, A/OX2. RESPIRATION EVEN AND UNLABORED. IV OF NS INFUSING AT TKO, RIGHT UPPER ARM PICC LINE. INCISION IN THE ABDOMEN COVERED WITH DRESSING DRY AND INTACT WITH ONE CESAR DRAINING SEROSANGUINEOUS FLUID, COLOSTOMY BAG WITH SOFT AND LIQUID STOOLS BROWN IN COLOR, MODERATE AMOUNT. SAFETY MEASURES ENFORCED. SIDE RAILS UP FOR SEIZURE PRECAUTION. PAIN IN THE ABDOMEN 05/01, WILL MEDICATE PER MD ORDER. ON IV ANTIBIOTICS.
--- NOTE | 2022-06-13 20:00 | NUR ---
Patient's Plan of Care was discussed and reviewed with IVELISSE FERMIN.
[2022-06-13] MEDS: ZOLPIDEM 5 MG TAB PO SCH (21:18)
--- NOTE | 2022-06-13 21:19 | NUR ---
METOPROLOL NOT ADMINISTERED BP - 108/65. MORPHINE ADMINISTERED BY RN.
[2022-06-14] VITALS: BP 111/62
[2022-06-14] MEDS: METOPROLOL 50 MG TAB PO SCH ×3 (00:17→21:07)
--- NOTE | 2022-06-14 00:19 | NUR ---
BP - 111/62, HR - 130 - 136, UNCONTROLLED AFIB. METOPROLOL 50 MG ADMINISTERED. WILL CONTINUE TO MONITOR.
[2022-06-14] MEDS: Z-GUARD PASTE TP SCH ×2 (01:56→13:11)
--- NOTE | 2022-06-14 02:00 | NUR ---
SLEEPING COMFORTABLY, RESPIRATION EVEN AND UNLABORED.
[2022-06-14 04:00] VITALS: BP 115/74
--- NOTE | 2022-06-14 04:00 | NUR ---
HEART RATE ON TELE MONITORING -99, AFIB CONTROLLED.
[2022-06-14] MEDS: metroNIDAZOLE 500 MG/NS PREMIX 100 ML IV SCH ×4 (05:21→21:11)
--- NOTE | 2022-06-14 05:30 | NUR ---
EMPTY FROM CESAR - 10 ML, RECTAL TUBE - 100 ML, COLOSTOMY BAG - 200 ML AND FROM F/C - 600 ML.
--- NOTE | 2022-06-14 07:10 | NUR ---
CONDITION REMAIN STABLE. ENDORSED TO AM SHIFT NURSE FOR CONTINUITY OF CARE.
--- NOTE | 2022-06-14 07:30 | NUR ---
RECEIVED PT FROM NIGHTSPRFT NURSEZANDER. PT ASLEEP. RR EVEN & UNLABORED. ON RA. O2 SATURATION @ 95%. SEMI FOWLERS. TELE, AFIB. SOFT DIET. STALIN PICC LINE DOUBLE LUMEN. R ARM SWOLLEN. PT STATES "IT HURTS" WHEN R ARM IS MOVED OR TOUCHED. R SIDE WEAKNESS WITH HISTORY OF CVA. BURGESS AND RECTAL TUBE VIA GRAVITY. CESAR DRAIN ON LLQ VIA NEGATIVE PRESSURE DRAINING SCANT AMOUNT OF SEROSANGUINOUS DRAINAGE. MID ABDOMEN WITH JOSEMANUEL, NO S/S OF INFECTION. ABDOMINAL PAD REAPPLIED. COLOSTOMY BAG ON ABDOMEN. NEEDS ALL MET AT THIS TIME. ALL SAFETY MEASURES IN PLACE.
[2022-06-14 07:45] LABS: BASOPHILS % (AUTO) 0.2 % (0.0-2.0); EOSINOPHILS # (AUTO) 0.2 K/uL (0-0.4); EOSINOPHILS % (AUTO) 0.7 % (0.0-4.0); HEMATOCRIT 33.8 % (36-52); HEMOGLOBIN 11.2 g/dL (12.0-18.0); LYMPHOCYTES # (AUTO) 1.6 K/uL (2.0-11.5); LYMPHOCYTES % (AUTO) 7.6 % (20.5-51.1); MEAN CORPUSCULAR HEMOGLOBIN 29 pg (27-31); MEAN CORPUSCULAR HGB CONC 33 g/dL (33-37); MEAN CORPUSCULAR VOLUME 87.7 fL (80-94); MONOCYTES # (AUTO) 1.1 K/uL (0.8-1.0); MONOCYTES % (AUTO) 5.1 % (1.7-9.3); NEUTROPHILS # (AUTO) 18.2 K/uL (1.8-7.7); NEUTROPHILS % (AUTO) 86.4 % (42.2-75.2); PLATELET COUNT (AUTO) 230 K/uL (140-450); RED BLOOD CELL COUNT(AUTO) 3.85 MIL/uL (4.20-6.10); RED CELL DISTRIBUTION WIDTH 15.4 % (11.6-13.7); WHITE BLOOD COUNT (AUTO) 21.1 K/uL (4.8-10.8)
[2022-06-14 08:00] VITALS: BP 122/68
[2022-06-14] MEDS ORDERED: CRUSHER, PILL MC ONE (08:50)
[2022-06-14] MEDS: PANTOPRAZOLE 40 MG INJ VIAL IVP SCH (08:58)
[2022-06-14] MEDS: HYDROmorphone 1 MG/ML AMP IVP PRN ×3 (08:58→21:12)
[2022-06-14] MEDS: ZINC SULF 220 MG CAP PO SCH (08:58)
--- NOTE | 2022-06-14 09:24 | NUR ---
NOTIFIED MD REGARDING R ARM SWELLING. MD ORDER FOR PICC LINE INSERTION ON L ARM.
[2022-06-14] MEDS: LEVOFLOXACIN 500 MG/D5W PREMIX 100 ML IV SCH (10:00)
[2022-06-14 12:00] VITALS: BP 135/70
--- NOTE | 2022-06-14 12:05 | NUR ---
PICC LINE NURSEJEFFERY AT BEDSIDE WITH PT PERFORMING PICC LINE INSERTION.
--- NOTE | 2022-06-14 15:50 | NUR ---
CONTACTED DR. GAONA AND DR. AMADO REGARDING CESAR DRAINAGE WITH GREYISH COLOR. DR. GAONA DIRECTED TO LEAVE 500 ML NS AND DARRELL 60 ML SYRINGE AT BEDSIDE. WILL INPUT ORDER NURSING COMMUNICATION.
[2022-06-14 16:00] VITALS: BP 149/80
--- NOTE | 2022-06-14 19:29 | NUR ---
BEDSIDE REPORT GIVEN TO NIGHTSHIFT NURSEELVIN FOR CONTINUITY OF CARE.
[2022-06-14 20:00] VITALS: BP 115/70
[2022-06-14] MEDS: ZOLPIDEM 5 MG TAB PO SCH (21:11)
[2022-06-14] MEDS: ONDANSETRON 4 MG/2 ML VIAL IM/IVP PRN (21:24)
[2022-06-15] VITALS: BP 125/72
[2022-06-15] MEDS: Z-GUARD PASTE TP SCH ×2 (01:00→13:08)
[2022-06-15] MEDS: HYDROmorphone 1 MG/ML AMP IVP PRN (02:41)
[2022-06-15 04:00] VITALS: BP 102/61
[2022-06-15] MEDS: metroNIDAZOLE 500 MG/NS PREMIX 100 ML IV SCH ×3 (04:25→20:07)
--- NOTE | 2022-06-15 07:32 | NUR ---
RECIEVED PATIENT FROM ROLL ON MAN NURSE.PATIENT IS SLEEPING IN BED./CHEST RISING AND FALLING EVEN.CALL LIGHT WITHIN REACH.WILL CONTINUE TO MONITOR.
[2022-06-15] MEDS: METOPROLOL 50 MG TAB PO SCH ×2 (08:20→20:07)
[2022-06-15] MEDS: PANTOPRAZOLE 40 MG INJ VIAL IVP SCH (08:20)
[2022-06-15] MEDS: ZINC SULF 220 MG CAP PO SCH (08:21)
[2022-06-15] MEDS ORDERED: ALBUTEROL 0.083% 2.5 MG/3 ML NEBU INH ONE (10:34)
[2022-06-15] MEDS ORDERED: IPRATROPIUM 0.02% 0.5 MG/2.5 ML NEBU INH ONE (10:34)
--- NOTE | 2022-06-15 10:40 | NUR ---
LAUREN EVERETT OUT OF STOCK; REFERENCE NICOLE DATED 05/09/2022 LANI TRISTAN REGISTERED NURSE SURGICAL SERVICES; HHN PRN THERAPY GIVEN WITH UD ALBUTEROL AND UD ATROVENT
[2022-06-15] MEDS: LEVOFLOXACIN 500 MG/D5W PREMIX 100 ML IV SCH (11:28)
--- NOTE | 2022-06-15 14:25 | NUR ---
MET DR. GAONA AT OUTSIDE OF PT'S ROOM. DR. GAONA ASK IF PT WAS SEEN FOR COLOSTOMY. EXPLAIN TO DOCTOR PT.LAST SEEN ON 06/11/2022,NO ISSUE IDENTIFIED AT THAT TIME BY WOUND CARE NURSE AND IF ANY CHANGE OF CONDITION AFTER THE VISIT PRIMARY NURSE SHOULD FOLLOW UP ALSO AND LET DOCTOR AND WOUND CARE NURSE KNOW. ASK TO DOCTOR IF ANY ISSUE, NO ANSWER FROM DOCTOR. WOUND CARE NURSE THEN INVITE DR. GAONA " SINCE YOU ARE HER LET'S CHECK TOGETHER" DR. GAONA REFUSE AND SAID HE HAS SURGERY COMING UP, HE TURN AROUND AND LEFT. WOUND CARE NURSE EXAM PT, MID ABD SURGICAL WOUND JOSEMANUEL DRY INTACT NO S/S WOUND DEHISCENCE, LLQ ABD CESAR DRAIN IN PLACE WITH PINA COLOR DRAINAGE OBSERVED, COLOSTOMY HALF WAY OUT WITH WRONG APPLIANCE. PRIMARY RN SRUTHY AT BED SIDE AND ABOUT TO CHANGE BAG. SRUTHY REQUEST ASSISTANCE FOR COLOSTOMY CHANGE SINCE THIS IS HER FIRST TIME. WOUND CARE NURSE TEACH PRIMARY RN COLOSTOMY CARE AND BAG CHANGE STEP BY STEP WITH RETURN DEMONSTRATIONS AND SRUTHY VERBALIZES UNDERSTANDING. PT. ALSO OBSERVED THE PROCEDURES BUT UNABLE TO CONTAIN INFORMATION. WHILE APPLYING COLOSTOMY BAG. PT C/O PAIN 07/30, NOT TO STOMA, BUT "INSIDE" OF HIS ABDOMINAL. PRIMARY RN TAKE WOUND PHOTOS PINA COLOR DRAINAGE AND ABD.PAIN REPORT TO DR. AMADO SINCE DR. GAONA IS AT SURGERY. ALL ABOVE INFORMATION REPORT TO TORCH CUTTER JCARLOS AND SPOKE TO EDUCATOR JULES FOLLOW UP FOR COLOSTOMY CARE EDUCATION FOR STAFF.
--- NOTE | 2022-06-15 14:30 | NUR ---
DR GAONA AT BEDSIDE.ASSESSING THE WOUND ,RECTAL TUBE AND THE CESAR DRAIN.WOUND NURSE OUTSIDE THE PATIENT ROOM. ASKED THE WOUND CARE NURSE TO HAVE A WOUND ASSESSMENT.ASSISTED HER DOING THE COLOSTOMY BAG CHANGE AND WOUND CARE DRESSING.
[2022-06-15 15:16] LABS: BASOPHILS # (AUTO) 0.1 K/uL (0.00-0.22); BASOPHILS % (AUTO) 0.7 % (0.0-2.0); EOSINOPHILS # (AUTO) 0.1 K/uL (0-0.4); EOSINOPHILS % (AUTO) 0.7 % (0.0-4.0); HEMOGLOBIN 11.3 g/dL (12.0-18.0); LYMPHOCYTES # (AUTO) 1.6 K/uL (2.0-11.5); LYMPHOCYTES % (AUTO) 8.1 % (20.5-51.1); MEAN CORPUSCULAR HEMOGLOBIN 29 pg (27-31); MEAN CORPUSCULAR HGB CONC 32 g/dL (33-37); MEAN CORPUSCULAR VOLUME 88.9 fL (80-94); MONOCYTES % (AUTO) 5.3 % (1.7-9.3); NEUTROPHILS # (AUTO) 16.8 K/uL (1.8-7.7); NEUTROPHILS % (AUTO) 85.2 % (42.2-75.2); PLATELET COUNT (AUTO) 242 K/uL (140-450); RED BLOOD CELL COUNT(AUTO) 3.94 MIL/uL (4.20-6.10); RED CELL DISTRIBUTION WIDTH 15.6 % (11.6-13.7); WHITE BLOOD COUNT (AUTO) 19.7 K/uL (4.8-10.8)
[2022-06-15 17:00] VITALS: BP 119/41
[2022-06-15] MEDS: IPRATROPIUM 0.02% 0.5 MG/2.5 ML NEBU INH PRN (19:21)
[2022-06-15] MEDS: ALBUTEROL 0.083% 2.5 MG/3 ML NEBU INH PRN (19:21)
[2022-06-15] MEDS: ZOLPIDEM 5 MG TAB PO SCH (20:07)
[2022-06-15 22:17] VITALS: BP 118/49
[2022-06-16] MEDS: Z-GUARD PASTE TP SCH ×2 (00:12→13:23)
[2022-06-16] MEDS: metroNIDAZOLE 500 MG/NS PREMIX 100 ML IV SCH ×3 (04:01→22:29)
[2022-06-16 04:31] VITALS: BP 116/88
--- NOTE | 2022-06-16 05:12 | NUR ---
rn notes patient remains on room air, no sob noted, VSS all shift, patient denies pain at this time. Cleaned colostomy bag. All medications given with no side effects. PICC line remains patent at this time.
--- NOTE | 2022-06-16 07:32 | NUR ---
RECEIVED PATIENT FROM IP ARCHITECT NURSE.PATIENT SLEEPING IN BED.CHEST RISING AND FALLING EVENLY.NO SIGNS OF DISTRESS NOTED.CALL LIGHT WITHIN REACH.BED IN LOW POSITION.VS STABLE.ON RECTAL TUBE, END ILIOSTOMY BAG WITH CESAR DRAIN.POC DISCUSSED.WILL CONTINUE TO MONITOR.
[2022-06-16 08:00] VITALS: BP 115/82
[2022-06-16] MEDS: PANTOPRAZOLE 40 MG INJ VIAL IVP SCH (08:15)
[2022-06-16] MEDS: METOPROLOL 50 MG TAB PO SCH ×2 (08:16→22:33)
[2022-06-16] MEDS: ZINC SULF 220 MG CAP PO SCH (08:17)
[2022-06-16] MEDS: LEVOFLOXACIN 500 MG/D5W PREMIX 100 ML IV SCH (10:54)
[2022-06-16 12:00] VITALS: BP 125/70
--- NOTE | 2022-06-16 13:00 | NUR ---
FREQUENT ROUNDS DONE.WOUND ASSESSMENT DONE.CHANGED THE ILIOSTOMY BAG.STOMA APPEARS PINK IN COLOR. MILD REDNESS AROUND THE STOMA. ABDOMINAL INCISION DRESSING CHANGED.NO OBVIOUS SIGNS OF DRAINAGE NOTED. DRAINED 30 ML OF FECULENT DRAIN FROM CESAR DRAIN.
[2022-06-16 16:00] VITALS: BP 130/69
--- NOTE | 2022-06-16 19:30 | NUR ---
ENDORSED PATIENT TO PLASTICS TECHNICIAN NURSE.NO OTHER SIGNS OF DISTRESS NOTED.
[2022-06-16 20:00] VITALS: BP 130/56
[2022-06-16] MEDS: ZOLPIDEM 5 MG TAB PO SCH (22:33)
[2022-06-16] MEDS ORDERED: CRUSHER, PILL MC ONE (22:42)
[2022-06-17] MEDS: Z-GUARD PASTE TP SCH ×2 (01:00→12:16)
[2022-06-17] MEDS: metroNIDAZOLE 500 MG/NS PREMIX 100 ML IV SCH ×2 (05:34→21:27)
[2022-06-17 08:00] VITALS: BP 136/83
[2022-06-17] MEDS: ZINC SULF 220 MG CAP PO SCH (09:27)
[2022-06-17] MEDS: PANTOPRAZOLE 40 MG INJ VIAL IVP SCH (09:28)
[2022-06-17] MEDS: METOPROLOL 50 MG TAB PO SCH ×2 (09:28→21:28)
[2022-06-17] MEDS: LEVOFLOXACIN 500 MG/D5W PREMIX 100 ML IV SCH (09:31)
[2022-06-17 09:51] LABS: BASOPHILS # (AUTO) 0.1 K/uL (0.00-0.22); BASOPHILS % (AUTO) 0.4 % (0.0-2.0); EOSINOPHILS # (AUTO) 0.1 K/uL (0-0.4); EOSINOPHILS % (AUTO) 0.6 % (0.0-4.0); HEMATOCRIT 31.8 % (36-52); HEMOGLOBIN 10.5 g/dL (12.0-18.0); LYMPHOCYTES # (AUTO) 1.2 K/uL (2.0-11.5); MEAN CORPUSCULAR HEMOGLOBIN 29 pg (27-31); MEAN CORPUSCULAR HGB CONC 33 g/dL (33-37); MEAN CORPUSCULAR VOLUME 87.9 fL (80-94); MONOCYTES % (AUTO) 6.5 % (1.7-9.3); NEUTROPHILS # (AUTO) 12.9 K/uL (1.8-7.7); PLATELET COUNT (AUTO) 301 K/uL (140-450); RED BLOOD CELL COUNT(AUTO) 3.62 MIL/uL (4.20-6.10); RED CELL DISTRIBUTION WIDTH 15.3 % (11.6-13.7); WHITE BLOOD COUNT (AUTO) 15.2 K/uL (4.8-10.8)
[2022-06-17 09:58] LABS: ANION GAP 5.8 (8-16); CARBON DIOXIDE 29.7 mmol/L (21-32); CREATININE 0.8 mg/dL (0.6-1.3); POTASSIUM 3.5 mmol/L (3.5-5.1)
[2022-06-17 10:06] LABS: LYMPHOCYTES % (AUTO) 7.7 % (20.5-51.1); NEUTROPHILS % (AUTO) 84.8 % (42.2-75.2)
[2022-06-17] MEDS: IPRATROPIUM 0.02% 0.5 MG/2.5 ML NEBU INH PRN (10:54)
[2022-06-17] MEDS: ALBUTEROL 0.083% 2.5 MG/3 ML NEBU INH PRN (10:55)
--- NOTE | 2022-06-17 11:30 | NUR ---
patient c/o 11/29 abdominal pain, no pain meds on profile, md notified
[2022-06-17 12:00] VITALS: BP 126/75
[2022-06-17] MEDS: MORPHINE SULFATE 2 MG/ML SYR IVP PRN (12:12)
--- NOTE | 2022-06-17 12:17 | NUR ---
patient c/o 7/10 abdominal pain, prn morphine administered per emar
[2022-06-17 16:00] VITALS: BP 121/74
[2022-06-17 20:00] VITALS: BP 97/64
--- NOTE | 2022-06-17 20:00 | NUR ---
RECEIVED REPORT FROM MORNING SHIFT RN. PT IS AOX4, BEDBOUND, ABLE TO VERBALIZE NEEDS AND ABLE TO FOLLOW COMMANDS. PT IS ON ROOM AIR AND ON SOFT DIET. PT HAS LEFT UPPER ARM PICC LINE DOUBLE LUMEN RUNNING WITH NS AT O. PT HAS BURGESS CATHETER, COLOSTOMY AND RECTAL TUBE. NO S/S OF RESPIRATORY DISTRESS AND NO COMPLAIN OF PAIN AT THIS TIME. ALL SAFETY MEASURES IMPLEMENTED. BED IN LOW POSITION, BED WHEELS ON LOCK AND CALL LIGHT WITHIN REACH.
[2022-06-17] MEDS: ZOLPIDEM 5 MG TAB PO SCH (21:28)
--- NOTE | 2022-06-17 21:35 | NUR ---
ALL SCHEDULED AND PRESCRIBED MEDICATION WAS GIVEN TO PT PER MD ORDER. ALL SAFETY MEASURES IMPLEMENTED. BED IN LOW POSITION, BED WHEELS ON LOCK AND CALL LIGHT WITHIN REACH.
[2022-06-18] VITALS: BP 115/67
--- NOTE | 2022-06-18 | NUR ---
PT IS SLEEPING. CHEST RISE AND FALL SYMMETRICALLY NOTED. RESPIRATION IS EVEN AND UNLABORED. ALL SAFETY MEASURES IMPLEMENTED. BED IN LOW POSITION, BED WHEELS ON LOCK AND CALL LIGHT WITHIN REACH.
[2022-06-18] MEDS: Z-GUARD PASTE TP SCH ×2 (01:08→13:01)
[2022-06-18] MEDS: MORPHINE SULFATE 2 MG/ML SYR IVP PRN (01:31)
--- NOTE | 2022-06-18 01:31 | NUR ---
PRN PAIN MEDICATION WAS GIVEN TO PT DUE TO ABD AND BACK PAIN WITH PAIN SCALE OF 6/10. ALL SAFETY MEASURES IMPLEMENTED. BED IN LOW POSITION, BED WHEELS ON LOCK AND CALL LIGHT WITHIN REACH.
[2022-06-18 04:00] VITALS: BP 138/76
--- NOTE | 2022-06-18 04:00 | NUR ---
MORNING CARE DONE TO PT. CHANGED LINENS, GOWN, CHUCKS, COLOSTOMY BAG ANG EMPTY CESAR DRAIN, BURGESS CATHETER AND RECTAL TUBE. NO COMPLAIN OF PAIN. NO S/S OF RESPIRATORY DISTRESS NOTED. ALL SAFETY MEASURES IMPLEMENTED. BED IN LOW POSITION, BED WHEELS ON LOCK AND CALL LIGHT WITHIN REACH.
[2022-06-18] MEDS: metroNIDAZOLE 500 MG/NS PREMIX 100 ML IV SCH ×3 (05:00→22:00)
--- NOTE | 2022-06-18 07:22 | NUR ---
PT IS STABLE. ENDORSED PT TO THE MORNING SHIFT NURSE FOR CONTINUITY OF CARE.
--- NOTE | 2022-06-18 07:33 | NUR ---
endorsed patient from night shift manager nurse.patient is sleeping in bed.chest rising and falling evenly.call light within reach.all safety measures in place.POC DISCUSSED.WILL CONTINUE TO MONITOR.
[2022-06-18 08:00] VITALS: BP 141/70
--- NOTE | 2022-06-18 08:32 | NUR ---
MET DR. AMADO AT PT. BED SIDE, ASSESSMENT/CLOVER DONE TOGETHER. MID ABD SURGICAL SITE DRY AND CLEAN, LLQ PROLAPSED STOMA MOIST, BEEFY RED, FUNCTIONING WITH OUTPUT. LLQ ABD CESAR DRAIN PINA COLOR DISCHARGED OBSERVED. PT REFUSES TO TURN TO SIDE TO CHECK RECTAL TUBING, C/O PAIN 07/30. OBSERVED SMALL AMOUNT OF STOOL FROM TUBING. POC DISCUSSED LAST IMAGE DONE LAST WEEK . NO NEW ORDER GIVEN AT THIS TIME.
[2022-06-18] MEDS: PANTOPRAZOLE 40 MG INJ VIAL IVP SCH (09:53)
[2022-06-18] MEDS: METOPROLOL 50 MG TAB PO SCH ×2 (09:54→21:10)
[2022-06-18] MEDS: ZINC SULF 220 MG CAP PO SCH (09:56)
[2022-06-18 12:00] VITALS: BP 135/72
--- NOTE | 2022-06-18 13:55 | NUR ---
06/18/22 RD FOLLOW UP COMPLETED PLEASE REFER TO NUTRITION ASSESSMENT UNDER CARE ACTIVITY FOR ESTIMATED NUTRITIONAL NEEDS. 1. CONTINUE CARDIAC, SOFT DIET TOLERATED 2. RECOMMEND BANATROL BID FOR DIARRHEA UNTIL SYMPTOMS RESOLVED 3. MONITOR GI SYMPTOMS AND PO INTAKE 4. RD TO FOLLOW-UP 3-5 DAYS, MODERATE RISK REVIEWED BY ANNETTE LUCIANO RD
[2022-06-18 16:00] VITALS: BP 125/80
--- NOTE | 2022-06-18 19:30 | NUR ---
ENDORSED THE PATIENT TO OB/GYN NURSE FOR CONTINUITY OF CARE.
--- NOTE | 2022-06-18 19:31 | NUR ---
RECD. RESTING IN BED, AWAKE, A/OX3. RESPIRATION EVEN AND UNLABORED. IV OF NS INFUSING AT TKO AT THE LEFT UPPER ARM PICC LINE. ABLE TO VERBALIZED NEEDS. INCISION IN THE ABDOMEN COVERED WITH DRESSING DRY AND INTACT WITH ONE CESAR DRAINING MINIMAL AMOUNT OF PINKISH FLUID. COLOSTOMY BAR DRAINING BROWNISH LIQUID STOOLS. F/C PATENT DRAINING CLEAR YELLOW URINE. STILL ON IV ANTIBIOTICS. DENIES PAIN 010. Addendum: 06/18/22 at 2255 by Bhumika Treviño LVN CORRECTION: CESAR DRAINING LIGHT BROWN CREAMY FLUID
[2022-06-18 20:00] VITALS: BP 120/66
[2022-06-18] MEDS ORDERED: LEVOFLOXACIN 500 MG/D5W PREMIX 100 ML IV SCH (20:00)
--- NOTE | 2022-06-18 21:00 | NUR ---
Patient's Plan of Care was discussed and reviewed with MORNING BABYSITTER: ZANDER BHANDARI
[2022-06-18] MEDS: ZOLPIDEM 5 MG TAB PO SCH (21:05)
--- NOTE | 2022-06-18 21:15 | NUR ---
SCHEDULED MEDICATIONS ADMINISTERED. TOLERATED WELL.
--- NOTE | 2022-06-18 23:00 | NUR ---
REQUESTED FOR WARM BLANKET GIVEN AND JUICES.
[2022-06-19] VITALS: BP 125/67
[2022-06-19] MEDS: Z-GUARD PASTE TP SCH ×2 (01:00→13:19)
--- NOTE | 2022-06-19 01:00 | NUR ---
SLEEPING COMFORTABLY IN BED, RESPIRATION EVEN AND UNLABORED.
--- NOTE | 2022-06-19 03:00 | NUR ---
FREQUENTLY ASKING NURSE TO RAISE OR LOWER HEAD OF HIS BED. ALL OTHER NEEDS ATTENDED.
[2022-06-19 04:00] VITALS: BP 121/69
--- NOTE | 2022-06-19 04:00 | NUR ---
BP STABLE. STILL AFIB ON TELE MONITORING. NO SOB NOTED.
[2022-06-19] MEDS: metroNIDAZOLE 500 MG/NS PREMIX 100 ML IV SCH ×2 (04:46→13:19)
--- NOTE | 2022-06-19 07:19 | NUR ---
RECIEVED PATIENT FROM DAYCARE DIRECTOR NURSE.PATIENT IN BED. VERBALLY ACTIVE.ALL SAFETY MEASURES IN PLACE.CALL LIGHT WITHIN REACH.PATIENT HAS ILIOSTOMY BAG, CESAR OZUNAIN. RECTAL TUBE AND BURGESS IN PLACE.POC DISCUSSED. WILL CONTINUE TO MONITOR.
[2022-06-19 08:00] VITALS: BP 114/68
[2022-06-19] MEDS: PANTOPRAZOLE 40 MG INJ VIAL IVP SCH (08:19)
[2022-06-19] MEDS: METOPROLOL 50 MG TAB PO SCH (08:23)
[2022-06-19] MEDS: ZINC SULF 220 MG CAP PO SCH (08:23)
[2022-06-19] MEDS: MORPHINE SULFATE 2 MG/ML SYR IVP PRN (08:34)
[2022-06-19 10:04] LABS: BASOPHILS # (AUTO) 0.1 K/uL (0.00-0.22); BASOPHILS % (AUTO) 0.6 % (0.0-2.0); EOSINOPHILS # (AUTO) 0.1 K/uL (0-0.4); EOSINOPHILS % (AUTO) 1.1 % (0.0-4.0); HEMOGLOBIN 10.5 g/dL (12.0-18.0); LYMPHOCYTES % (AUTO) 8.7 % (20.5-51.1); MEAN CORPUSCULAR HEMOGLOBIN 29 pg (27-31); MEAN CORPUSCULAR HGB CONC 33 g/dL (33-37); MEAN CORPUSCULAR VOLUME 88.2 fL (80-94); MONOCYTES % (AUTO) 8.3 % (1.7-9.3); NEUTROPHILS # (AUTO) 9.5 K/uL (1.8-7.7); NEUTROPHILS % (AUTO) 81.3 % (42.2-75.2); PLATELET COUNT (AUTO) 392 K/uL (140-450); RED BLOOD CELL COUNT(AUTO) 3.62 MIL/uL (4.20-6.10); RED CELL DISTRIBUTION WIDTH 15.6 % (11.6-13.7); WHITE BLOOD COUNT (AUTO) 11.6 K/uL (4.8-10.8)
[2022-06-19 10:19] LABS: ANION GAP 8.4 (8-16); CARBON DIOXIDE 28.4 mmol/L (21-32); CREATININE 0.9 mg/dL (0.6-1.3); POTASSIUM 3.8 mmol/L (3.5-5.1)
[2022-06-19] MEDS ORDERED: METR500S15 IV (11:26)
[2022-06-19] MEDS ORDERED: DEXT100S62 IV (11:26)
[2022-06-19 12:00] VITALS: BP 117/69
--- NOTE | 2022-06-19 13:00 | NUR ---
PATIENT FREQUENTLY ASKING TO PUT BED UP AND DOWN. FREQUENT ROUNDS DONE. WOUND ASSESSMENT DONE. STUDENT NURSE AT BEDSIDE ASSISTING WITH CHANGING ILIOSTOMY BAG AND DRAINING CESAR DRAIN.
[2022-06-19 17:07] VITALS: BP 117/69
--- NOTE | 2022-06-19 18:30 | NUR ---
PATIENT DISCHARGING TO [facility]. PER ORDER. REPORT GIVEN TO [facility] NURSE REGARDING THE PATIENT.DISCHARGE PAPERWORK DONE.PATIENT IS DISCHARGED TO [facility] WITH RECTAL TUBE, ABDOMINAL INCISION BURGESS CATHETER, ILIOSTOMY BAG, CESAR DRAIN AND PICC LINE.ID BANDS REMOVED TELEMONITOR REMOVED.
== END 2022-06-19 18:43 | DRG 329 ==
LOC: MED 21:09 → MMU 06-04 05:33 → MTU 06-04 06:22 → MIC 06-07 11:05 → MTU 06-13 06:35
PROVIDERS: ADMIT Family Medicine; ATTEND Family Medicine
PROC: 0D1B0Z4 Bypass Ileum to Cutaneous, Open Approach (ICD-10-PCS; 2022-06-07)
PROC: 0DNW0ZZ Release Peritoneum, Open Approach (ICD-10-PCS; 2022-06-07)
PROC: 0D9670Z Drainage of Stomach with Drainage Device, Via Natural or Artificial Opening (ICD-10-PCS; 2022-06-07)
PROC: 0DTH0ZZ Resection of Cecum, Open Approach (ICD-10-PCS; principal; 2022-06-07 20:00)
PROC: 5A0945Z Assistance with Respiratory Ventilation, 24-96 Consecutive Hours (ICD-10-PCS; 2022-06-08)
PROC: 02HV33Z Insertion of Infusion Device into Superior Vena Cava, Percutaneous Approach (ICD-10-PCS; 2022-06-08)
PROC: B548ZZA Ultrasonography of Superior Vena Cava, Guidance (ICD-10-PCS; 2022-06-08)
PROC: 5A1935Z Respiratory Ventilation, Less than 24 Consecutive Hours (ICD-10-PCS; 2022-06-09)
PROC: 02HV33Z Insertion of Infusion Device into Superior Vena Cava, Percutaneous Approach (ICD-10-PCS; 2022-06-14)
PROC: B548ZZA Ultrasonography of Superior Vena Cava, Guidance (ICD-10-PCS; 2022-06-14)
DX: K56.41 Fecal impaction (principal); A41.9 Sepsis, unspecified organism; J96.01 Acute respiratory failure with hypoxia; N17.0 Acute kidney failure with tubular necrosis; K63.1 Perforation of intestine (nontraumatic); K56.609 Unspecified intestinal obstruction, unspecified as to partial versus complete obstruction; I69.351 Hemiplegia and hemiparesis following cerebral infarction affecting right dominant side; I48.20 Chronic atrial fibrillation, unspecified; I50.22 Chronic systolic (congestive) heart failure; I42.9 Cardiomyopathy, unspecified; Q43.1 Hirschsprung's disease; T85.612A Breakdown (mechanical) of permanent sutures, initial encounter; Z20.822 Contact with and (suspected) exposure to COVID-19; K21.9 Gastro-esophageal reflux disease without esophagitis; F03.90 Unspecified dementia, unspecified severity, without behavioral disturbance, psychotic disturbance, mood disturbance, and anxiety; E78.5 Hyperlipidemia, unspecified; I11.0 Hypertensive heart disease with heart failure; E86.0 Dehydration; I25.10 Atherosclerotic heart disease of native coronary artery without angina pectoris; G40.909 Epilepsy, unspecified, not intractable, without status epilepticus; G47.00 Insomnia, unspecified; Z88.0 Allergy status to penicillin; Z88.1 Allergy status to other antibiotic agents; Z88.8 Allergy status to other drugs, medicaments and biological substances; Z79.01 Long term (current) use of anticoagulants; Z87.891 Personal history of nicotine dependence; Y92.239 Unspecified place in hospital as the place of occurrence of the external cause; Y74.3 Surgical instruments, materials and general hospital and personal-use devices (including sutures) associated with adverse incidents
CPT/HCPCS: 36415; 36600; 71045; 74018; 80048; 80053; 81003; 82150; 82803; 83036; 83605; 83690; 83735; 83880; 84100; 84436; 84439; 84443; 84479; 84484; 85025; 85610; 85730; 86886; 86900; 86901; 87040; 87081; 88307; 93005; 93971; 94002; 94003; 94640; 96361; 96374; 96375; 96376; 99285; C1758; C9113; J0282; J0330; J1100; J1170; J1644; J1885; J1956; J2001; J2250; J2270; J2370; J2405; J2704; J3010; J3490; J7060; J7613; J7644; Q0092; Q9967

== ENCOUNTER 2022-07-24 23:55 | Inpatient (IN) | payer OTHER, MEDICAID ==
[~2022-07-24] VITALS: Ht 182.9 cm; Wt 72.6 kg
[~2022-07-24 23:55] MED LIST changes: +DEXT100S62 IV; +METR500S15 IV; -SULF-59 PO; -voltaren gel TOP
[2022-07-25 00:01] VITALS: BP 118/80
--- NOTE | 2022-07-25 00:01 | NUR ---
pt is here becuase when he was in his facility and he has a chest pain over 1 hour. Pt is alert and oriented x4. he is on nasal canula 2L. he has ostomy.
--- NOTE | 2022-07-25 00:02 | NUR ---
PT BROUGHT TO BED 12 VIA [facility] [place] [facility] ECHO
[2022-07-25 00:57] LABS: BASOPHILS # (AUTO) 0.1 K/uL (0.00-0.22); EOSINOPHILS # (AUTO) 0.3 K/uL (0-0.4); EOSINOPHILS % (AUTO) 3.1 % (0.0-4.0); HEMATOCRIT 35.3 % (36-52); HEMOGLOBIN 11.7 g/dL (12.0-18.0); LYMPHOCYTES # (AUTO) 2.4 K/uL (2.0-11.5); LYMPHOCYTES % (AUTO) 27.5 % (20.5-51.1); MEAN CORPUSCULAR HEMOGLOBIN 30 pg (27-31); MEAN CORPUSCULAR HGB CONC 33 g/dL (33-37); MEAN CORPUSCULAR VOLUME 89.8 fL (80-94); MONOCYTES % (AUTO) 11.6 % (1.7-9.3); NEUTROPHILS % (AUTO) 56.8 % (42.2-75.2); PLATELET COUNT (AUTO) 322 K/uL (140-450); RED BLOOD CELL COUNT(AUTO) 3.93 MIL/uL (4.20-6.10); RED CELL DISTRIBUTION WIDTH 16.2 % (11.6-13.7); WHITE BLOOD COUNT (AUTO) 8.8 K/uL (4.8-10.8)
[2022-07-25 01:17] LABS: ALBUMIN 2.8 g/dL (3.4-5.0); ANION GAP 11.5 (8-16); ASPARTATE AMINOTRANSFERASE 16 U/L (15-37); CARBON DIOXIDE 29.1 mmol/L (21-32); CHLORIDE 105 mmol/L (98-107); GFR ARICAN-AMERICAN 96 mL/min (>90); GLUCOSE 161 mg/dL (74-106); LIPASE 176 U/L (73-393); MAGNESIUM 1.7 mg/dL (1.8-2.4); POTASSIUM 4.6 mmol/L (3.5-5.1); SODIUM SERUM 141 mmol/L (136-145); TOTAL BILIRUBIN 0.3 mg/dL (0.0-1.0); UREA NITROGEN, BLOOD 25 mg/dL (7-18)
[2022-07-25] MEDS ORDERED: MAG SULF 2000 MG/WATER PREMIX 50 ML IV ONE (01:55)
[2022-07-25] MEDS ORDERED: [UNRECOGNIZED DRUG - CODE] PO (02:09)
[2022-07-25] MEDS ORDERED: ACET-2619 PO (02:09)
[2022-07-25] MEDS ORDERED: LAM200 PO (02:09)
[2022-07-25] MEDS ORDERED: INSU100S5 IJ (02:09)
[2022-07-25] MEDS ORDERED: CARV12.5 PO (02:09)
[2022-07-25] MEDS ORDERED: MORPHINE SULFATE 2 MG/ML SYR IVP PRN ×2 (02:35→07:55)
[2022-07-25] MEDS ORDERED: ACETAMINOPHEN 325 MG TAB PO PRN (07:55)
[2022-07-25] MEDS ORDERED: ZOLPIDEM 10 MG TAB PO PRN (07:55)
[2022-07-25] MEDS ORDERED: POTASSIUM CHLORIDE 10 MEQ TABER PO PRN (07:55)
[2022-07-25] MEDS ORDERED: ONDANSETRON 4 MG/2 ML VIAL IVP PRN (07:55)
[2022-07-25] MEDS ORDERED: INSULIN LISPRO SLIDING SCALE 100 UNITS/ML VIAL SUBQ PRN (07:55)
[2022-07-25] MEDS ORDERED: MAG SULF 2000 MG/WATER PREMIX 50 ML IV PRN (07:55)
[2022-07-25] MEDS ORDERED: DEXTROSE 50% 50 ML SYR IVP PRN (07:55)
[2022-07-25] MEDS ORDERED: LORazepam 2 MG/ML VIAL IVP PRN (07:55)
[2022-07-25] MEDS ORDERED: DOCUSATE SODIUM 100 MG GELCAP PO PRN (07:55)
--- NOTE | 2022-07-25 08:17 | NUR ---
Patient will be admitted to care of DR AMADO. Admited to TELE. Will go to room 110B. Belongings list completed. Report to ANDREY.
[2022-07-25 08:20] VITALS: BP 108/60
--- NOTE | 2022-07-25 08:20 | NUR ---
RECEIVE PATIENT & ENDORSEMENT FROM ER NURSE THAT PATIENT COME FORM [facility] FOR PALPITATION & CHEST PAIN, WHICH DIAGNOSIS W/ CHEST PAIN. PATIENT IS DNR FROM SNF, ALLERGY TO CARBAPENEM, CEPHALOSPORIN, PENICILLINS, CILASTATIN, & IMIPENEM WITH MEDICAL HX OF Celestine MORA ON ELIQUIS, CVA W/ R. HEMIPLEGIA, CHF, HLD, DEMENTIA, ATHEROSCLEROTIC. PATIENT ALLERT X2, ON ROOM AIR, CARDIAC DIET, PIV AT L.WRIST, SCAR FROM OLD SURGERIES AT ABDOMEN; COLOSTOMY AND ILEOSTOMY PRESENT VITAL WITHIN PATIENT'S BASELINE (T-P-R: 97.9-105-20, BP:108/60, O2 SAT:95%). ADMISSION MRSA SPECIMEN COLLECTED. WILL CONTINUE TO MONITOR
[2022-07-25] MEDS ORDERED: DIGOXIN 0.125 MG TAB PO SCH (09:00)
--- NOTE | 2022-07-25 09:08 | NUR ---
PATIENT HAS BEEN SCREENED AND CATEGORIZED MODERATE NUTRITION RISK. PATIENT WILL BE SEEN WITHIN 3-5 DAYS OF ADMISSION. REVIEWED BY ANNETTE LUCIANO RD
[2022-07-25] MEDS: lamoTRIgine 25 MG TAB PO SCH ×2 (09:55→21:49)
[2022-07-25] MEDS: carvediloL 3.125 MG TAB PO SCH ×2 (09:56→21:49)
[2022-07-25] MEDS: DILTIAZEM 120 MG CAPER PO SCH (09:56)
[2022-07-25] MEDS: APIXABAN 2.5 MG TAB PO SCH ×2 (09:59→21:48)
[2022-07-25] MEDS: ATORVASTATIN 20 MG TAB PO SCH (10:01)
[2022-07-25] MEDS: ENALAPRIL 10 MG TAB PO SCH (10:02)
[2022-07-25 12:00] VITALS: BP 95/60
[2022-07-25] MEDS: BLOOD GLUCOSE MONITORING 1 DEV DEV FS SCH ×3 (12:19→21:45)
[2022-07-25 16:00] VITALS: BP 91/54
--- NOTE | 2022-07-25 16:41 | NUR ---
C PLANN[age] YRS OLD MALE PATIENT WAS ADMITTED FROM [facility] WITH A DX OF CHEST PAIN. PATIENT HAS A HX OF CVA ,DEMENTIA HTN, SZ, HLD, A-FIB, CHF AND GERD. CXR SHOWED MINIMAL LEFT BASILAR SUBSEGMENTAL ATELECTASIS RAPID COVID TEST NEGATIVE. CONTINUED HOME MEDS. CONSULTED WITH CARDIO FOR A-FIB. DC PLAN TO RETURN TO [facility] WHEN STABLE . CM TO FOLLOW
--- NOTE | 2022-07-25 19:41 | NUR ---
ENDORSE PATIENT IN STABLE CONDITION TO PM SHIFT NURSE. NURSE ALSO INFORM NURSE THAT PATIENT'S NIECE CALLED AND NURSE INFORM THAT PATIENT IS ADMIT FOR CHEST PAIN
--- NOTE | 2022-07-25 19:55 | NUR ---
PATIENT IN BED WELL RESTED ON ROOM AIR. NO SOB NOTED. NO COMPLAINTS OF PAIN. IV ACCESS TO LEFT WRIST SALINE LOCK. WITH COLOSTOMY AND ILEOSTOMY. CALL LIGHT WITHIN REACH. SAFETY MEASURES IN PLACE.
[2022-07-25 20:00] VITALS: BP 107/58
--- NOTE | 2022-07-25 21:48 | NUR ---
ALL SCHEDULED MEDICATIONS ADMINISTERED ORDERED. TOLERATED WELL.
[2022-07-26] VITALS: BP 102/67
[2022-07-26 04:00] VITALS: BP 110/41
[2022-07-26] MEDS: BLOOD GLUCOSE MONITORING 1 DEV DEV FS SCH ×4 (06:37→21:13)
--- NOTE | 2022-07-26 06:37 | NUR ---
BLOOD SUGAR CHECK WAS 113. NO INSULIN COVERAGE NEEDED.
[2022-07-26 07:04] LABS: BASOPHILS # (AUTO) 0.1 K/uL (0.00-0.22); BASOPHILS % (AUTO) 1.2 % (0.0-2.0); EOSINOPHILS # (AUTO) 0.3 K/uL (0-0.4); EOSINOPHILS % (AUTO) 3.4 % (0.0-4.0); HEMATOCRIT 33.3 % (36-52); LYMPHOCYTES # (AUTO) 2.6 K/uL (2.0-11.5); LYMPHOCYTES % (AUTO) 34.8 % (20.5-51.1); MEAN CORPUSCULAR HEMOGLOBIN 30 pg (27-31); MEAN CORPUSCULAR HGB CONC 33 g/dL (33-37); MEAN CORPUSCULAR VOLUME 89.8 fL (80-94); MONOCYTES # (AUTO) 0.9 K/uL (0.8-1.0); MONOCYTES % (AUTO) 12.2 % (1.7-9.3); NEUTROPHILS # (AUTO) 3.7 K/uL (1.8-7.7); NEUTROPHILS % (AUTO) 48.4 % (42.2-75.2); PLATELET COUNT (AUTO) 287 K/uL (140-450); RED BLOOD CELL COUNT(AUTO) 3.71 MIL/uL (4.20-6.10); RED CELL DISTRIBUTION WIDTH 16.1 % (11.6-13.7); WHITE BLOOD COUNT (AUTO) 7.6 K/uL (4.8-10.8)
--- NOTE | 2022-07-26 07:26 | NUR ---
GAVE REPORT TO DAY SHIFT NURSE FOR CONTINUITY OF CARE.
[2022-07-26 08:00] VITALS: BP_SYST 110; BP_DIAS 41; BP_DIAS 51
--- NOTE | 2022-07-26 08:00 | NUR ---
rECEIVED IN NO ACUTE DISTRESS. LIQUID STOOL NOTED FROM COLOSTOMY BAG IN LARGE AMOUNT. AOX3
[2022-07-26 08:52] LABS: ANION GAP 10.9 (8-16); CARBON DIOXIDE 28.4 mmol/L (21-32); POTASSIUM 4.3 mmol/L (3.5-5.1)
[2022-07-26] MEDS: APIXABAN 2.5 MG TAB PO SCH ×2 (09:00→21:00)
[2022-07-26] MEDS: carvediloL 3.125 MG TAB PO SCH ×2 (09:00→21:09)
[2022-07-26] MEDS: DILTIAZEM 120 MG CAPER PO SCH (09:00)
[2022-07-26] MEDS: lamoTRIgine 25 MG TAB PO SCH ×3 (09:00→21:00)
[2022-07-26] MEDS: ATORVASTATIN 20 MG TAB PO SCH (09:00)
[2022-07-26 12:00] VITALS: BP 118/58
[2022-07-26 16:00] VITALS: BP 118/58
[2022-07-26] MEDS: ENALAPRIL 10 MG TAB PO SCH (18:01)
--- NOTE | 2022-07-26 19:36 | NUR ---
RECEIVED PATIENT IN BED WATCHING TV IN NO ACUTE DISTRESS. CALL LIGHT ON EASY REACH. DENIES PAIN.
[2022-07-26 20:00] VITALS: BP 113/61
--- NOTE | 2022-07-26 21:00 | NUR ---
ALL DUE MEDICATIONS ADMINISTERED ORDERED.
--- NOTE | 2022-07-26 22:59 | NUR ---
1600 rEPOSITIONED, DENIES DISCOMFORT
[2022-07-27] VITALS: BP 117/68
[2022-07-27 04:00] VITALS: BP 125/66
[2022-07-27] MEDS: BLOOD GLUCOSE MONITORING 1 DEV DEV FS SCH ×2 (06:43→13:11)
--- NOTE | 2022-07-27 07:21 | NUR ---
receive the patient from the assistant casino shift manager rn in room 110B aox4 with admitting diagnosis of chest pain . will continue to monitor
--- NOTE | 2022-07-27 07:23 | NUR ---
GAVE REPORT TO DAY SHIFT NURSE FOR CONTINUITY OF CARE.
[2022-07-27 07:36] LABS: BASOPHILS # (AUTO) 0.1 K/uL (0.00-0.22); BASOPHILS % (AUTO) 0.8 % (0.0-2.0); EOSINOPHILS # (AUTO) 0.3 K/uL (0-0.4); EOSINOPHILS % (AUTO) 3.3 % (0.0-4.0); HEMATOCRIT 34.7 % (36-52); HEMOGLOBIN 11.3 g/dL (12.0-18.0); LYMPHOCYTES # (AUTO) 2.5 K/uL (2.0-11.5); LYMPHOCYTES % (AUTO) 31.8 % (20.5-51.1); MEAN CORPUSCULAR HEMOGLOBIN 29 pg (27-31); MEAN CORPUSCULAR HGB CONC 33 g/dL (33-37); MEAN CORPUSCULAR VOLUME 89.7 fL (80-94); MONOCYTES # (AUTO) 0.8 K/uL (0.8-1.0); MONOCYTES % (AUTO) 10.4 % (1.7-9.3); NEUTROPHILS # (AUTO) 4.2 K/uL (1.8-7.7); NEUTROPHILS % (AUTO) 53.7 % (42.2-75.2); PLATELET COUNT (AUTO) 308 K/uL (140-450); RED BLOOD CELL COUNT(AUTO) 3.87 MIL/uL (4.20-6.10); RED CELL DISTRIBUTION WIDTH 16.1 % (11.6-13.7); WHITE BLOOD COUNT (AUTO) 7.9 K/uL (4.8-10.8)
[2022-07-27 07:45] LABS: ANION GAP 12.1 (8-16); CARBON DIOXIDE 27.3 mmol/L (21-32); CREATININE 0.8 mg/dL (0.6-1.3); POTASSIUM 4.4 mmol/L (3.5-5.1)
[2022-07-27 08:00] VITALS: BP 128/63
[2022-07-27] MEDS: DILTIAZEM 120 MG CAPER PO SCH (09:14)
[2022-07-27] MEDS: ATORVASTATIN 20 MG TAB PO SCH (09:14)
[2022-07-27] MEDS: carvediloL 3.125 MG TAB PO SCH (09:15)
[2022-07-27] MEDS: ENALAPRIL 10 MG TAB PO SCH (09:15)
[2022-07-27] MEDS: APIXABAN 2.5 MG TAB PO SCH (09:16)
--- NOTE | 2022-07-27 09:20 | NUR ---
the RN changed the colostomy bag the patient
--- NOTE | 2022-07-27 10:32 | NUR ---
patient complain of pain . morphine sulfate was administered thru the patient intravenous line . will re assess after an hour Addendum: 07/27/22 at 1125 by Agency Nurse LUKE Gray RN wrong patient
[2022-07-27] MEDS: lamoTRIgine 25 MG TAB PO SCH (11:01)
[2022-07-27 12:00] VITALS: BP 102/58
--- NOTE | 2022-07-27 13:15 | NUR ---
gave report to Ella OVIEDO from [facility] .
--- NOTE | 2022-07-27 13:22 | NUR ---
RECEIVED ORDER FOR PATIENT TO GO BACK TO SNF FOR CONTINUE OF CARE. FAXED ALL PAPERWORK TO [facility]. SPOKE WITH [facility] WHO ACCEPTED THE PATIENT BACK. PATIENT WILL BE GOING TO ROOM 39-B. IS STILL BEING ASSIGNED AND [facility] WILL BE CONTACTING US WITH THAT INFORMATION. ONCE THAT INFORMATION IS RECEIVED THEN TRANSPORTATION WILL BE ARRANGED WITH [phone] Addendum: 07/27/22 at 1355 by MARIANA BLOOM PATIENT WILL BE UNDER DR FLOYD. [facility] TRANSPORT[facility] SET UP WITH [facility] WITH A 1500 GENERAL SALES MANAGER TIME. NURSE AWARE AND SISTER KATHRINE AWARE OF THE ABOVE INFORMATION.
--- NOTE | 2022-07-27 14:15 | NUR ---
made some discharge patient teaching . change colostomy bag for care , discontinue the heart monitor . remove intravebous line , identification band . patient discharge with EMT in a stable condition . no complain of pain at this time . no sign and symptoms of respiratory distress .
== END 2022-07-27 15:35 | DRG 308 ==
LOC: MED 23:55 → MTU 07-25 02:36
PROVIDERS: ADMIT Family Medicine; ATTEND Family Medicine
DX: I48.20 Chronic atrial fibrillation, unspecified (principal); E43 Unspecified severe protein-calorie malnutrition; Z20.822 Contact with and (suspected) exposure to COVID-19; N19 Unspecified kidney failure; I50.9 Heart failure, unspecified; E83.42 Hypomagnesemia; Z68.21 Body mass index [BMI] 21.0-21.9, adult; I25.10 Atherosclerotic heart disease of native coronary artery without angina pectoris; K21.9 Gastro-esophageal reflux disease without esophagitis; E78.5 Hyperlipidemia, unspecified; I11.0 Hypertensive heart disease with heart failure; D64.9 Anemia, unspecified
CPT/HCPCS: 36415; 71045; 80048; 80053; 82948; 83690; 83735; 84484; 85025; 87081; 96365; 99285; J2270; J3475

== ENCOUNTER 2022-08-07 10:48 | Inpatient (IN) | payer OTHER, MEDICAID ==
[~2022-08-07] VITALS: Ht 182.9 cm; Wt 81.6 kg
[~2022-08-07 10:48] MED LIST changes: -DEXT100S62 IV; -DIGO0.1211 PO; +INSU100S5 IJ; -METR500S15 IV; -ZINC220C29 PO
[2022-08-07 10:53] VITALS: BP 101/65
[2022-08-07 11:36] LABS: BASOPHILS # (AUTO) 0.1 K/uL (0.00-0.22); BASOPHILS % (AUTO) 1.1 % (0.0-2.0); EOSINOPHILS # (AUTO) 0.2 K/uL (0-0.4); HEMATOCRIT 38.8 % (36-52); HEMOGLOBIN 12.8 g/dL (12.0-18.0); LYMPHOCYTES # (AUTO) 2.2 K/uL (2.0-11.5); LYMPHOCYTES % (AUTO) 20.6 % (20.5-51.1); MEAN CORPUSCULAR HEMOGLOBIN 30 pg (27-31); MEAN CORPUSCULAR HGB CONC 33 g/dL (33-37); MEAN CORPUSCULAR VOLUME 90.5 fL (80-94); MONOCYTES # (AUTO) 0.8 K/uL (0.8-1.0); MONOCYTES % (AUTO) 7.7 % (1.7-9.3); NEUTROPHILS # (AUTO) 7.2 K/uL (1.8-7.7); NEUTROPHILS % (AUTO) 68.6 % (42.2-75.2); PLATELET COUNT (AUTO) 304 K/uL (140-450); RED BLOOD CELL COUNT(AUTO) 4.29 MIL/uL (4.20-6.10); RED CELL DISTRIBUTION WIDTH 15.9 % (11.6-13.7); WHITE BLOOD COUNT (AUTO) 10.5 K/uL (4.8-10.8)
[2022-08-07] MEDS ORDERED: NACL 0.9% 1,000 ML IV ONE (12:00)
[2022-08-07 12:07] LABS: ANION GAP 9.5 (8-16); CARBON DIOXIDE 28.8 mmol/L (21-32); CREATININE 0.8 mg/dL (0.6-1.3); POTASSIUM 4.3 mmol/L (3.5-5.1); TOTAL BILIRUBIN 0.3 mg/dL (0.0-1.0)
--- NOTE | 2022-08-07 12:15 | NUR ---
PT WENT TO CT
[2022-08-07 12:58] LABS: ACETAMINOPHEN < 0.5 ug/ml (10-30); SALICYLATE < 2.8 mg/dL (2.8-20.0)
--- NOTE | 2022-08-07 12:58 | NUR ---
EMPTIED PATIENT GTUBE, CHANGED PATIENT UNDERWEAR AND LINEN. STRAIGHT CATHED PATIENT OBTAINED 300CC OR YELLOW URINE. PATIENT TOLERATED WELL.
--- NOTE | 2022-08-07 12:58 | NUR ---
URINE COLLECTED AND SENT TO LAB
--- NOTE | 2022-08-07 12:59 | NUR ---
IV ACCESS INFILTRATED. IV REMOVED.
[2022-08-07 13:20] LABS: APPEARANCE,URINE CLEAR (CLEAR); BILIRUBIN,URINE NEGATIVE (NEGATIVE); BLOOD, URINE NEGATIVE (NEGATIVE); COLOR,URINE YELLOW (YELLOW); LEUKOCYTE ESTERASE ,URINE NEGATIVE (NEGATIVE); NITRITE, URINE NEGATIVE (NEGATIVE); UGLUCOSE NEGATIVE (NEGATIVE)
[2022-08-07] MEDS ORDERED: DOCUSATE SODIUM 100 MG GELCAP PO PRN (13:20)
[2022-08-07] MEDS ORDERED: guaiFENesin DM 200/20 MG-10 ML 10 ML UDC PO PRN (13:20)
[2022-08-07] MEDS ORDERED: POTASSIUM CHLORIDE 10 MEQ TABER PO PRN (13:20)
[2022-08-07] MEDS ORDERED: HYDROcodone/APAP 7.5/325 MG 1 TAB PO PRN (13:20)
[2022-08-07] MEDS ORDERED: ONDANSETRON 4 MG/2 ML VIAL IM/IVP PRN (13:20)
[2022-08-07] MEDS ORDERED: ACETAMINOPHEN 325 MG TAB PO PRN (13:20)
[2022-08-07] MEDS ORDERED: ZOLPIDEM 5 MG TAB PO PRN (13:20)
[2022-08-07 13:49] LABS: BARBITURATE, URINE NEGATIVE ng/ml (NEG <=200); BENZODIAZEPINE, URINE NEGATIVE ng/mL (NEG <=200); CANNABINOID, URINE NEGATIVE ng/mL (NEG <=50); COCAINE, URINE NEGATIVE ng/mL (NEG <=300); OPIATE, URINE NEGATIVE ng/mL (NEG <=2000); PHENCYCLIDINE SCREEN,URINE NEGATIVE ng/mL (NEG <=25)
--- NOTE | 2022-08-07 14:11 | NUR ---
Patient will be admitted to care of DR ANNE. Admited to [facility]. Will go to [id number]. Belongings list completed. Report Oren BUTLER.
[2022-08-07 14:14] VITALS: BP 108/62
[2022-08-07 14:30] LABS: CHOL/HDL RATIO 1.7 (1-4.5); FREE T4 (FREE THYROXINE) 1.02 ng/dL (0.76-1.46); MAGNESIUM 1.1 mg/dL (1.8-2.4); PHOSPHORUS 3.8 mg/dL (2.5-4.9); THYROID STIMULATING HORMONE 2.23 uIU/mL (0.34-3.74)
[2022-08-07] MEDS: NACL 0.9% 1,000 ML IV SCH ×2 (15:22→23:20)
--- NOTE | 2022-08-07 15:51 | NUR ---
MADE AWARE ABOUT LOW MAGNESIUNM OF 1.1 WITH NO PRNS
[2022-08-07] MEDS ORDERED: MAG SULF 2000 MG/WATER PREMIX 50 ML IV SCH (17:32)
--- NOTE | 2022-08-07 19:05 | NUR ---
RECEIVED PATIENT ENDORSEMENT FROM SHADE RN, PATIENT WAS STABLE DURING SHIFT CHANGE. PATIENT HAS NO IV ACCESS BUT RN LEAVING WILL RESTART BEFORE LEAVING. PATIENT IS VERY PLEASANT. DENIES ANY PAIN AT THIS TIME. NO NOTED RESPIRATORY DISTRESS. NO S/S OF HYPER/HYPOGLYCEMIA. SIDE RAILS UP X 2 CALL LIGHT WITHIN REACH. [email or web address]
--- NOTE | 2022-08-07 20:00 | NUR ---
Patient's Plan of Care was discussed and reviewed with IVELISSE DE LA TORRE
[2022-08-07] MEDS: APIXABAN 2.5 MG TAB PO SCH (20:42)
[2022-08-07] MEDS: carvediloL 3.125 MG TAB PO SCH (20:42)
[2022-08-07] MEDS: lamoTRIgine 25 MG TAB PO SCH (20:45)
[2022-08-07 22:17] LABS: PROTHROMBIN TIME 11.2 secs (10.8-13.4)
--- NOTE | 2022-08-07 22:42 | NUR ---
CHANGED OUT COLOSTOMY BAG. STOOL NOTED MOSTLY LIQUID THEN SOFT TOWARDS THE END. LIGHT BROWN AND FOUL SMELL. PATIENT TOLERATED THE CHANGE WELL. PATIENT WAS CLEANED AND KEPT DRY. ALL NEEDS MET AT THIS TIME. NURSING WILL GIVE PATIENT SANDWICH WHEN PRODUCTION WORKER RETURNS FOR THE CODE BLUE. [email or web address]
[2022-08-08] VITALS: BP 112/67
--- NOTE | 2022-08-08 03:18 | NUR ---
CAMP DINING ROOM ATTENDANT WAS ABLE TO START IV ON PATIENT WITH A 24 CHA ON THE LEFT UPPER ARM. ONE ATTEMPT. PATIENT IS A DIFFICULT STICK. NURSING WILL CONTINUE WITH THE IVF. [email or web address]
[2022-08-08 06:40] LABS: BASOPHILS % (AUTO) 0.7 % (0.0-2.0); EOSINOPHILS # (AUTO) 0.1 K/uL (0-0.4); EOSINOPHILS % (AUTO) 2.2 % (0.0-4.0); HEMATOCRIT 35.8 % (36-52); HEMOGLOBIN 11.7 g/dL (12.0-18.0); LYMPHOCYTES # (AUTO) 2.1 K/uL (2.0-11.5); LYMPHOCYTES % (AUTO) 30.6 % (20.5-51.1); MEAN CORPUSCULAR HEMOGLOBIN 29 pg (27-31); MEAN CORPUSCULAR HGB CONC 33 g/dL (33-37); MONOCYTES # (AUTO) 0.6 K/uL (0.8-1.0); MONOCYTES % (AUTO) 8.9 % (1.7-9.3); NEUTROPHILS # (AUTO) 3.9 K/uL (1.8-7.7); NEUTROPHILS % (AUTO) 57.6 % (42.2-75.2); PLATELET COUNT (AUTO) 250 K/uL (140-450); RED BLOOD CELL COUNT(AUTO) 3.97 MIL/uL (4.20-6.10); WHITE BLOOD COUNT (AUTO) 6.8 K/uL (4.8-10.8)
[2022-08-08 07:10] LABS: ANION GAP 9.6 (8-16); CARBON DIOXIDE 26.4 mmol/L (21-32); CREATININE 0.8 mg/dL (0.6-1.3)
--- NOTE | 2022-08-08 07:29 | NUR ---
ENDORSED CARE TO ADÁN OVIEDO FOR CONTINUITY OF CARE, PATIENT WAS STALE DURING SHIFT CHANGE. [email or web address]
--- NOTE | 2022-08-08 07:30 | NUR ---
RECEIVED REPORT FROM RAW STOCK DYEING MACHINE TENDER NURSE, CATHY, FOR CONTINUITY OF CARE. PT IN BED AT THIS TIME. RESPIRATIONS ARE EVEN AND UNLABORED ON ROOM AIR. NO SIGNS OF DISTRESS NOTED. PT IS ALERT AND ORIENTED X2-3, ABLE TO VERBALIZE NEEDS, ABLE TO FOLLOW COMMANDS. PT IS ON REGULAR DIET AT THIS TIME. PT HAS COLOSTOMY IN PLACE, CHANGED WITH RAW STOCK DYEING MACHINE TENDER NURSE. PT UTILIZES URINAL AT BEDSIDE TO VOID. PT HAS IV TO STALIN, 24G WITH NS RUNNING AT 100ML. CALL LIGHT WITHIN REACH. ALL SAFETY MEASURES IN PLACE.
[2022-08-08 08:00] VITALS: BP 113/71
[2022-08-08] MEDS ORDERED: ENALAPRIL 10 MG TAB PO SCH (09:00)
--- NOTE | 2022-08-08 09:04 | NUR ---
PATIENT HAS BEEN SCREENED AND CATEGORIZED MODERATE NUTRITION RISK. PATIENT WILL BE SEEN WITHIN 3-5 DAYS OF ADMISSION. 08/07/22-08/12/22 REVIEWED BY ANNETTE LUCI[address]O RD
[2022-08-08 09:06] LABS: T4 (THYROXINE) 6.8 ug/dL (4.5-12.0)
[2022-08-08] MEDS: lamoTRIgine 25 MG TAB PO SCH ×2 (09:16→21:24)
[2022-08-08] MEDS: ASCORBIC ACID 500 MG TAB PO SCH (09:17)
[2022-08-08] MEDS: DILTIAZEM 120 MG CAPER PO SCH (09:17)
[2022-08-08] MEDS: ATORVASTATIN 20 MG TAB PO SCH (09:18)
[2022-08-08] MEDS: PANTOPRAZOLE 40 MG TABEC PO SCH (09:19)
[2022-08-08] MEDS: APIXABAN 2.5 MG TAB PO SCH ×2 (09:20→21:22)
[2022-08-08] MEDS: carvediloL 3.125 MG TAB PO SCH ×2 (09:20→21:00)
[2022-08-08] MEDS: NACL 0.9% 1,000 ML IV SCH ×2 (09:21→22:38)
--- NOTE | 2022-08-08 09:22 | NUR ---
ADMINISTERED SCHEDULED MEDICATIONS. EDUCATED PT ON MEDS ADMINISTERED. PT VERBALIZED UNDERSTANDING.
--- NOTE | 2022-08-08 11:50 | NUR ---
PT PRESSING CALL LIGHT. WENT TO CHECK ON PT. PT PULLING AT IV LINES. EDUCATED PT ON NECESSITY OF IV ACCESS. PT STATED "OK SORRY".
--- NOTE | 2022-08-08 14:23 | NUR ---
DID ROUNDS ON PT. ASSISTED WITH REPOSITIONING PT. PT TOLERATED WELL.
--- NOTE | 2022-08-08 15:37 | NUR ---
DC PLANN[age] YRS OLD MALE PATIENT WAS [place] [facility] [place] DX OF ALOC. PATIENT HAS A HX OF CVA ,DEMENTIA HTN, SZ, HLD, A-FIB, CHF AND GERD. CXR SHOWED NO ACUTE CARDIOPULMONARY DISEASE. CT ABD SHOWED NO EVIDENCE OF BOWEL OBSTRUCTION. CT HEAD NEGATIVE. RAPID COVID TEST NEGATIVE. ADMINISTERED IVF AND CONTINUED HOME MEDS. DC PLAN TO RETURN TO [facility] WHEN STABLE . CM TO FOLLOW Addendum: 08/09/22 at 1447 by MARIANA BLOOM RECEIVED DC ORDER FOR PATIENT. FAXED ALL PAPER WORK [place] [facility]. [facility] COULDN'T ACCEPT PATIENT DUE TO NO BEDS. PATIENT WAS ACCEPTED BACK TO [facility] GOING TO RROM 39-B UNDER DR SAL. Addendum: 08/09/22 at 1502 by Shell Brower RN DC PLANNING: PER FAMILY REQUEST TO SEND PATIENT TO [facility] [place] CM CONTACTED [facility] AT [facility] [phone] STATED NO BED FOR TODAY. CM CALLED [facility] SPOKE WITH GINNY AND PT CAN GO BACK TO [facility] AND WILL TRANSFER HIM TO [place] WHEN BED AVAILABLE. CM TO FOLLOW Addendum: 08/09/22 at 1515 by MARIANA BLOOM CM TRANSPORTATION SET UP WITH [facility] FOR A 1630 PIZZAMAKER TIME. CHARGE NURSE ROSSANA AWARE OF THE ABOVE INFORMATION AND SISTER KATHRINE WAS LEFT A MESSAGE OF THE ABOVE INFORMATION.
[2022-08-08 16:00] VITALS: BP 98/64
--- NOTE | 2022-08-08 16:55 | NUR ---
OBSERVED PT ATTEMPTING TO PULL OFF COLOSTOMY BAG. CHANGED COLOSTOMY BAG AND EDUCATED PT ON THE NECESSITY OF COLOSTOMY BAG. PT STATED "OK".
--- NOTE | 2022-08-08 19:10 | NUR ---
ENDORSED PT TO ZIPPER SEWING MACHINE OPERATOR NURSE, CATHY, FOR CONTINUITY OF CARE. PT IS STABLE.
--- NOTE | 2022-08-08 19:11 | NUR ---
RECEIVED ENDORSEMENT FROM ADÁN OVIEDO FOR CONTINUITY OF CARE, PATIENT WAS STABLE DURING THE SHIFT CHANGE. IT WAS ENDORSED PATIENT WANTS A BRAND NEW COLOSTOMY BAG EVERY TIME HE HAS A BOWEL MOVENT. IT WAS EXPLAINED THE WE WILL DRAIN IT WHEN THE BAG HAS A SUFFICIENT AMOUNT. PATIENT IS CONFUSED ON OCCASION AND NURSING WILL REINFORCE NEED. PATIENT WAS CURRENTLY IN BED RESTING WITHOUT INCIDENT. PATIENT HAS NO S/S OF PAIN/DISCOMFORT. CALL LIGHT WITHIN REACH. TRAVON RAILS UP X 3 FOR SAFETY AND COMFORT. [email or web address]
--- NOTE | 2022-08-08 20:58 | NUR ---
PATIENT CAME TO THE NURSES STATION TO USE THE RESTROOM BUT WANTED TO BE REMOVED FROM THE IV. NURSING EDUCATION USING A URINAL FOR URIN TO REMAIN ON THE IV HYDRATION. NURSE ENCOURAGED TO USE THE CALL LIGHT IF HE WOULD LIKE TO USE THE BATHROOM FOR A BOWEL MOVEMENT. PATIENT UNDERSTOOD AND AGREED. [email or web address] Addendum: 08/08/22 at 2103 by Mindy Moreland LVN WRONG PATIENT.........................PATIENT REMAINS IN BED AND WAS GIVEN A TURKEY SANDWICH PER REQUEST. PATIENT DENIES ANY PAIN/DISCOMFORT. PATIENT REMAINS CLEAN AND DRY. SIDE RAILS UP X 3 FOR SAFETY AND COMFORT. CALL LIGHT WITHIN REACH. [email or web address]
--- NOTE | 2022-08-08 23:26 | NUR ---
COLOSTOMY BAG WAS CHANGED OUT. NOTED IT WAS FULL WITH BROWN LIQUID TYPE STOOL. FOUL SMELLING. CHANGED WITHOUT INCIDENT. CALL LIGHT WITHIN REACH. SIDE RAIL UP X3 FOR SAFETY AND COMFORT. PATIENT KEPT CLEAN AND DRY. [email or web address]
[2022-08-08 23:54] VITALS: BP 98/64
--- NOTE | 2022-08-09 00:20 | NUR ---
PATIENT WAS CHANGED FROM URINE. PATIENT WAS KEPT CLEAN AND DRY. CALL LIGHT WITHIN REACH. ALL NEEDS MET AT THIS TIME. [email or web address]
--- NOTE | 2022-08-09 03:33 | NUR ---
PATIENT NOTED IN BED ASLEEP WITHOUT INCIDENT. CHEST RISING AND FALLING EVENLY. NO NOTED S/S OF PAIN/DISCOMFORT. SIDE RAILS UP CALL LIGHT WITHIN REACH. [email or web address]
--- NOTE | 2022-08-09 07:07 | NUR ---
ENDORSED PATIENT TO MELISA DRAWING BOX TENDER FOR CONTINUITY OF CARE, PATIENT WAS STABLE DURING SHIFT CHANGE. [email or web address]
--- NOTE | 2022-08-09 07:08 | NUR ---
RECEIVED PT FROM CUSTOMER BUSINESS MANAGER NURSE FOR CONTINUITY OF CARE. PT IS SLEEPING. VISIBLE CHEST RISE/FALL. RESPIRATIONS EVEN AND UNLABORED ON RA. NO DISTRESS NOTED. CALL LIGHT WITHIN REACH. ALL SAFETY PRECAUTIONS IN PLACE.
[2022-08-09 07:13] LABS: BASOPHILS # (AUTO) 0.1 K/uL (0.00-0.22); EOSINOPHILS # (AUTO) 0.2 K/uL (0-0.4); HEMATOCRIT 33.5 % (36-52); HEMOGLOBIN 11.1 g/dL (12.0-18.0); LYMPHOCYTES # (AUTO) 2.5 K/uL (2.0-11.5); LYMPHOCYTES % (AUTO) 32.8 % (20.5-51.1); MEAN CORPUSCULAR HEMOGLOBIN 30 pg (27-31); MEAN CORPUSCULAR HGB CONC 33 g/dL (33-37); MEAN CORPUSCULAR VOLUME 89.7 fL (80-94); MONOCYTES # (AUTO) 0.6 K/uL (0.8-1.0); MONOCYTES % (AUTO) 8.6 % (1.7-9.3); NEUTROPHILS # (AUTO) 4.2 K/uL (1.8-7.7); NEUTROPHILS % (AUTO) 55.6 % (42.2-75.2); PLATELET COUNT (AUTO) 233 K/uL (140-450); RED BLOOD CELL COUNT(AUTO) 3.74 MIL/uL (4.20-6.10); RED CELL DISTRIBUTION WIDTH 15.8 % (11.6-13.7); WHITE BLOOD COUNT (AUTO) 7.6 K/uL (4.8-10.8)
[2022-08-09 07:27] LABS: ANION GAP 11.7 (8-16); CARBON DIOXIDE 24.4 mmol/L (21-32); CREATININE 0.9 mg/dL (0.6-1.3); POTASSIUM 4.1 mmol/L (3.5-5.1)
--- NOTE | 2022-08-09 07:34 | NUR ---
Patient's Plan of Care was discussed and reviewed with SUPERINTENDENT TESTS:
[2022-08-09 08:00] VITALS: BP 109/70
[2022-08-09] MEDS: lamoTRIgine 25 MG TAB PO SCH (09:15)
[2022-08-09] MEDS: PANTOPRAZOLE 40 MG TABEC PO SCH (09:16)
[2022-08-09] MEDS: APIXABAN 2.5 MG TAB PO SCH (09:17)
[2022-08-09] MEDS: ATORVASTATIN 20 MG TAB PO SCH (09:18)
[2022-08-09] MEDS: DILTIAZEM 120 MG CAPER PO SCH (09:18)
[2022-08-09] MEDS: ASCORBIC ACID 500 MG TAB PO SCH (09:19)
[2022-08-09] MEDS: carvediloL 3.125 MG TAB PO SCH (09:19)
--- NOTE | 2022-08-09 16:45 | NUR ---
DISCHARGE DISCUSSED WITH PATIENT. NAME BAND AND IV REMOVED. ALL BELONGINGS GATHERED AND TAKEN WITH TRANSPORT STAFF. PT IN STABLE CONDITION. DC TO [facility].
== END 2022-08-09 16:45 | DRG 73 ==
LOC: MED 10:48 → MTU 13:34
PROVIDERS: ADMIT Family Medicine; ATTEND Family Medicine
DX: G90.9 Disorder of the autonomic nervous system, unspecified (principal); G93.41 Metabolic encephalopathy; E44.1 Mild protein-calorie malnutrition; E86.0 Dehydration; I50.9 Heart failure, unspecified; Z20.822 Contact with and (suspected) exposure to COVID-19; I48.91 Unspecified atrial fibrillation; E83.42 Hypomagnesemia; D64.9 Anemia, unspecified; I25.10 Atherosclerotic heart disease of native coronary artery without angina pectoris; I11.0 Hypertensive heart disease with heart failure; E78.5 Hyperlipidemia, unspecified; K21.9 Gastro-esophageal reflux disease without esophagitis; F03.90 Unspecified dementia, unspecified severity, without behavioral disturbance, psychotic disturbance, mood disturbance, and anxiety; Z93.2 Ileostomy status; Z88.0 Allergy status to penicillin; Z88.8 Allergy status to other drugs, medicaments and biological substances; Z68.24 Body mass index [BMI] 24.0-24.9, adult
CPT/HCPCS: 36415; 70450; 71045; 80048; 80053; 80305; 81003; 82140; 82150; 82550; 83036; 83605; 83690; 83735; 83880; 84100; 84436; 84439; 84443; 84479; 84484; 85025; 85610; 85730; 87040; 87081; 87086; 93005; 96360; 99285; G0480; G0482; J3475